=== PATIENT | female | born 1940 | race Caucasian/White ===

== ENCOUNTER 2017-11-23 15:37 | Observation (INO) | payer MEDICARE, SELFPAY ==
[2017-11-23] VITALS (10 sets, daily range): BP systolic 125–182; BP diastolic 65–81; PULSE 59–82; RESP 13–19; TEMP 36.2–36.5; O2SAT 95–99; BMI 26.6
--- NOTE | 2017-11-23 16:06 | DI.RAD.S_ITS ---
PROCEDURE: XR CHEST 1V INDICATIONS: chest pain TECHNIQUE: One view of the chest was acquired. COMPARISON: None. FINDINGS: Surgical changes and devices: None. Lungs and pleura: No pleural effusions or pneumothorax. Lungs are clear. Mediastinum: Mediastinal contours appear normal. Heart size is normal. Bones and chest wall: No suspicious bony lesions. Overlying soft tissues appear unremarkable. IMPRESSION: No acute cardiopulmonary findings. Dictated by: Taryn Ndiaye M.D. on 11/23/2017 at 16:47 Approved by: Taryn Ndiaye M.D. on 11/23/2017 at 16:55
--- NOTE | 2017-11-23 16:24 | ED.CHESTPAIN ---
HPI - Chest Pain General Chief Complaint: Chest Pain Stated Complaint: FEELS LIKE SOMEONE STANDING ON HER CHEST Time Seen by Provider: 11/23/17 16:18 Source: patient and family ( ) Mode of arrival: ambulatory Limitations: no limitations History of Present Illness HPI narrative: this is a 77-year-old female who comes in with complaint of pressure in her anterior chest. Patient states that it started for the 1st time on Friday she has had a couple episodes that resolved. Today it started about 2:00 p.m. and has been pretty much constant. She does feel little short of breath. She denies any sweaty or clamminess. No nausea, no vomiting. She does not have any migration of the pain. She does feel some pressure kind of in her neck and back nothing seems to make it worse. Nothing seems to make it better. The only thing she can think of exacerbating factors that she has had Croatian fries and that happened before when she had Croatian fries prior to inserted had similar symptoms but not every time. Patient denies any past medical history. 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 She does not take any medications regularly. She does not smoke. She has never had a stress test. Her mom had heart attack in her 70s but no other family history. She does not take aspirin daily. The symptoms she was having since Friday have come more progressively in frequency. MD complaint: chest pain Related Data Allergies Allergy/AdvReac Type Severity Reaction Status Date / Time No Known Drug Allergies Allergy Verified 11/23/17 15:42 Review of Systems Review of Systems All systems reviewed & are unremarkable except as noted in HPI and below Constitutional Denies fever(s) Cardiovascular Reports chest pain ( pressure), Reports chest pain at rest, Reports chest pain with activity ( not worsened with activity), Denies diaphoresis, Denies syncope, Denies edema, Denies lightheadedness, Reports radiating jaw, neck or arm pain, Denies palpitations, Reports dyspnea and Denies orthopnea Respiratory Denies chest congestion, Denies cough, Denies hemoptysis and Reports dyspnea Gastrointestinal Gastrointestinal: Denies abdominal pain, Denies change in bowel habits, Denies diarrhea, Denies nausea and Denies vomiting Genitourinary Denies hematuria, Denies flank pain, Denies urinary incontinence and Denies urinary urgency Neurologic Denies syncope Endocrine Denies palpitations Exam Initial Vital Signs Initial Vital Signs: Vital Signs Temperature 97.1 F L 11/23/17 15:42 Pulse Rate 72 11/23/17 15:42 Respiratory Rate 16 11/23/17 15:42 Blood Pressure 159/79 H 11/23/17 15:42 Pulse Oximetry 99 11/23/17 15:42 Const General: cooperative, comfortable, well developed, No acute distress and No diaphoretic Nutritional Appearance: well nourished Orientation: alert, awake, oriented x3 and not confused Neck Neck: normal visual inspection, trachea midline and No JVD Chest Chest: normal inspection of the chest Resp Effort & Inspection: normal respiratory effort, able to speak in complete sentences, no respiratory distress and no use of accessory muscles Auscultation: clear to auscultation bilaterally, no rales, no rhonchi and no wheezes Cardio Rate: regular rate Rhythm: regular rhythm Heart Sounds: no click, no gallops, no murmurs and no rubs Pulses: normal peripheral pulses GI Inspection: non-distended Palpation: soft, no hepatosplenomegaly, No guarding, No pulsatile mass and No tender Auscultation: normal bowel sounds Extrem Right lower extremity: foot Details: no edema and vascular exam Details: dorsalis pedis pulse present Left lower extremity: foot Details: no edema and vascular exam Details: dorsalis pedis pulse present Scores HEART Score Heart Score history: Highly Suspicious Heart Score EKG: Non-Specific repolarization disturbance Heart Score Age: > or = 65 years old Heart Score risk factors: No known risk factors Heart Score troponin: < or = to normal limit Heart Score Total: 5 Course Orders Ordered: ED Orders 11/23/17 16:06 XR chest 1V Stat EKG-12 Lead Stat 11/23/17 16:20 Complete Blood Count AUTO DIFF Stat Comprehensive Metabolic Panel Stat Lipase Stat Troponin & CK Cardiac Panel Stat Sodium Chloride (Normal Saline 0.9%) 1,000 mls @ 150 mls/hr IV CONT GAVIN Last Admin: 11/23/17 16:26 Dose: 150 mls/hr Nitroglycerin (Nitrostat) 0.4 mg SL [id number] PRN PRN Reason: Chest Pain Last Admin: 11/23/17 16:32 Dose: 0.4 mg Admin: 11/23/17 16:27 Dose: 0.4 mg Discontinued Medications Aspirin (Aspirin Chew) 324 mg PO NOW ONE Stop: 11/23/17 16:07 Last Admin: 11/23/17 16:26 Dose: 324 mg Morphine Sulfate (Morphine) 4 mg IV NOW ONE Stop: 11/23/17 16:49 Last Admin: 11/23/17 16:54 Dose: 4 mg Ondansetron HCl (Zofran) 4 mg IV NOW ONE Stop: 11/23/17 16:53 Last Admin: 11/23/17 16:54 Dose: 4 mg Pantoprazole Sodium (Protonix) 40 mg IV NOW ONE Stop: 11/23/17 17:58 Last Admin: 11/23/17 18:11 Dose: 40 mg Reevaluation(s) Reevaluation #1: re-evaluation after nitro patient is Vital Signs - 8 hr 11/23/17 15:42 11/23/17 16:27 11/23/17 16:32 Temperature 97.1 F L Pulse Rate 72 71 82 Respiratory Rate 16 Blood Pressure 159/79 H 131/81 125/70 Blood Pressure [Right Arm] Pulse Oximetry 99 11/23/17 16:47 11/23/17 18:12 Temperature Pulse Rate 77 63 Respiratory Rate 15 16 Blood Pressure Blood Pressure [Right Arm] 129/67 144/68 H Pulse Oximetry 95 98 MDM - Chest Pain Lab Data Attestation: I reviewed the patient's lab results. Result diagrams: 11/23/17 16:20 11/23/17 16:20 Lab Results 11/23/17 11/23/17 Range/Units 16:20 16:20 WBC 7.1 (4.5-11.0) X10^3/uL RBC 4.29 (4.0-5.2) X10^6/uL Hgb 13.0 (12.0-16.0) g/dL Hct 38.6 (36-46) % MCV 90.0 (80-100) fL MCH 30.4 (26-34) PG MCHC 33.8 (30-36) % RDW 14.3 (11.6-14.8) % Plt Count 220 (150-400) X10^3/uL Neut % (Auto) 54.4 (50-75) % Lymph % (Auto) 31.0 (25-40) % Nicholas % (Auto) 10.7 (3-14) % Eos % (Auto) 2.7 (2-4) % Baso % (Auto) 1.2 (0-2) % Neut # (Auto) 3900 (3738-3475) /uL Sodium 143 (137-145) mmol/L Potassium 5.1 (3.4-5.1) mmol/L Chloride 107 (98-107) mmol/L Carbon Dioxide 30 (22-32) mmol/L BUN 25 H (7-17) mg/dL Creatinine 0.90 (0.52-1.04) mg/dL Estimated GFR > 60.0 (>60) mL/min BUN/Creatinine Ratio 27.8 H (6-22) Glucose 128 H (80-110) mg/dL Calcium 9.6 (8.4-10.2) mg/dL Total Bilirubin 0.3 (0.2-1.3) mg/dL AST 25 (14-36) IU/L ALT 23 (9-52) IU/L Alkaline Phosphatase 59 (38-126) U/L Total Creatine Kinase 65 (30-135) U/L Troponin I < 0.012 (0.01-0.034) ng/mL Total Protein 7.3 (6.3-8.2) g/dL Albumin 4.0 (3.5-5.0) g/dL Globulin 3.3 (1.7-4.1) g/dL Albumin/Globulin Ratio 1.2 (1.0-2.8) Lipase 206 (23-300) U/L Imaging Data Chest x-ray: Radiologist's impression: Patient: Alisia Helton [facility]#: [id number] : 1940cct:[id number] Age/Sex: 77 / FDate of Service: 11/23/17 Loc: ED Accession Number: [id number] Procedure: XR chest 1V Ordering Provider: Ashley Steven D.O. PROCEDURE: XR CHEST 1V INDICATIONS: chest pain TECHNIQUE: One view of the chest was acquired. COMPARISON: None. FINDINGS: Surgical changes and devices: None. Lungs and pleura: No pleural effusions or pneumothorax. Lungs are clear. Mediastinum: Mediastinal contours appear normal. Heart size is normal. Bones and chest wall: No suspicious bony lesions. Overlying soft tissues appear unremarkable. IMPRESSION: No acute cardiopulmonary findings. Dictated by: Taryn Ndiaye M.D. on 11/23/2017 at 16:47 Approved by: Taryn Ndiaye M.D. on 11/23/2017 at 16:55 ECG Data Attestation: I personally reviewed and interpreted this ECG as follows: Prior ECG tracings: available for review Interpretation: Sinus rhythm with short P are, rate of 74, P are 113, QRS of 101 and QTC of 410. The patient has Q-wave in lead [address] elevation are is appreciated. Patient has prior EKG from March of 2016 at that appears similar with no other new EKG changes. MDM Narrative Medical decision making narrative: patient comes in with chest pain her symptoms are somewhat concerning for cardiac nature although no EKG or troponin changes. Discussed with Dr. Rueda who saw her here in the department feel she would benefit from chest pain observation. He is available to do stress testing tomorrow and patient is put in for observation. She had nitro and morphine without any resolution. He did try some Protonix she thought her symptoms might have started after having some Croatian fries. Discharge Plan Departure Patient Disposition: Admitted as Observation Clinical Impression: Chest pain
[2017-11-23] MEDS: ASPIRIN 81 MG TAB 324 MG PO (16:26)
[2017-11-23] MEDS: SODIUM CHLORIDE 0.9% 1,000 ML 150 ML IV (16:26)
[2017-11-23] MEDS: NITROGLYCERIN 0.4 MG SL TAB SL ×2 (16:27→16:32)
--- NOTE | 2017-11-23 16:28 | ED_ITS ---
HPI - Chest Pain General Chief Complaint: Chest Pain Stated Complaint: FEELS LIKE SOMEONE STANDING ON HER CHEST Time Seen by Provider: 11/23/17 16:18 Source: patient and family ( ) Mode of arrival: ambulatory Limitations: no limitations History of Present Illness HPI narrative: this is a 77-year-old female who comes in with complaint of pressure in her anterior chest. Patient states that it started for the 1st time on Friday she has had a couple episodes that resolved. Today it started about 2:00 p.m. and has been pretty much constant. She does feel little short of breath. She denies any sweaty or clamminess. No nausea, no vomiting. She does not have any migration of the pain. She does feel some pressure kind of in her neck and back nothing seems to make it worse. Nothing seems to make it better. The only thing she can think of exacerbating factors that she has had British fries and that happened before when she had British fries prior to inserted had similar symptoms but not every time. Patient denies any past medical history. 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 She does not take any medications regularly. She does not smoke. She has never had a stress test. Her mom had heart attack in her 70s but no other family history. She does not take aspirin daily. The symptoms she was having since Friday have come more progressively in frequency. MD complaint: chest pain Related Data Allergies Allergy/AdvReac Type Severity Reaction Status Date / Time No Known Drug Allergies Allergy Verified 11/23/17 15:42 Review of Systems Review of Systems All systems reviewed & are unremarkable except as noted in HPI and below Constitutional Denies fever(s) Cardiovascular Reports chest pain ( pressure), Reports chest pain at rest, Reports chest pain with activity ( not worsened with activity), Denies diaphoresis, Denies syncope , Denies edema, Denies lightheadedness, Reports radiating jaw, neck or arm pain , Denies palpitations, Reports dyspnea and Denies orthopnea Respiratory Denies chest congestion, Denies cough, Denies hemoptysis and Reports dyspnea Gastrointestinal Gastrointestinal: Denies abdominal pain, Denies change in bowel habits, Denies diarrhea, Denies nausea and Denies vomiting Genitourinary Denies hematuria, Denies flank pain, Denies urinary incontinence and Denies urinary urgency Neurologic Denies syncope Endocrine Denies palpitations Exam Initial Vital Signs Initial Vital Signs: Vital Signs Temperature 97.1 F L 11/23/17 15:42 Pulse Rate 72 11/23/17 15:42 Respiratory Rate 16 11/23/17 15:42 Blood Pressure 159/79 H 11/23/17 15:42 Pulse Oximetry 99 11/23/17 15:42 Const General: cooperative, comfortable, well developed, No acute distress and No diaphoretic Nutritional Appearance: well nourished Orientation: alert, awake, oriented x3 and not confused Neck Neck: normal visual inspection, trachea midline and No JVD Chest Chest: normal inspection of the chest Resp Effort & Inspection: normal respiratory effort, able to speak in complete sentences, no respiratory distress and no use of accessory muscles Auscultation: clear to auscultation bilaterally, no rales, no rhonchi and no wheezes Cardio Rate: regular rate Rhythm: regular rhythm Heart Sounds: no click, no gallops, no murmurs and no rubs Pulses: normal peripheral pulses GI Inspection: non-distended Palpation: soft, no hepatosplenomegaly, No guarding, No pulsatile mass and No tender Auscultation: normal bowel sounds Extrem Right lower extremity: foot Details: no edema and vascular exam Details: dorsalis pedis pulse present Left lower extremity: foot Details: no edema and vascular exam Details: dorsalis pedis pulse present Scores HEART Score Heart Score history: Highly Suspicious Heart Score EKG: Non-Specific repolarization disturbance Heart Score Age: > or = 65 years old Heart Score risk factors: No known risk factors Heart Score troponin: < or = to normal limit Heart Score Total: 5 Course Orders Ordered: ED Orders 11/23/17 16:06 XR chest 1V Stat EKG-12 Lead Stat 11/23/17 16:20 Complete Blood Count AUTO DIFF Stat Comprehensive Metabolic Panel Stat Lipase Stat Troponin & CK Cardiac Panel Stat Sodium Chloride (Normal Saline 0.9%) 1,000 mls @ 150 mls/hr IV CONT GAVIN Last Admin: 11/23/17 16:26 Dose: 150 mls/hr Nitroglycerin (Nitrostat) 0.4 mg SL [id number] PRN PRN Reason: Chest Pain Last Admin: 11/23/17 16:32 Dose: 0.4 mg Admin: 11/23/17 16:27 Dose: 0.4 mg Discontinued Medications Aspirin (Aspirin Chew) 324 mg PO NOW ONE Stop: 11/23/17 16:07 Last Admin: 11/23/17 16:26 Dose: 324 mg Morphine Sulfate (Morphine) 4 mg IV NOW ONE Stop: 11/23/17 16:49 Last Admin: 11/23/17 16:54 Dose: 4 mg Ondansetron HCl (Zofran) 4 mg IV NOW ONE Stop: 11/23/17 16:53 Last Admin: 11/23/17 16:54 Dose: 4 mg Pantoprazole Sodium (Protonix) 40 mg IV NOW ONE Stop: 11/23/17 17:58 Last Admin: 11/23/17 18:11 Dose: 40 mg Reevaluation(s) Reevaluation #1: re-evaluation after nitro patient is Vital Signs - 8 hr 11/23/17 15:42 11/23/17 16:27 11/23/17 16:32 Temperature 97.1 F L Pulse Rate 72 71 82 Respiratory Rate 16 Blood Pressure 159/79 H 131/81 125/70 Blood Pressure [Right Arm] Pulse Oximetry 99 11/23/17 16:47 11/23/17 18:12 Temperature Pulse Rate 77 63 Respiratory Rate 15 16 Blood Pressure Blood Pressure [Right Arm] 129/67 144/68 H Pulse Oximetry 95 98 MDM - Chest Pain Lab Data Attestation: I reviewed the patient's lab results. Result diagrams: 11/23/17 16:20 11/23/17 16:20 Lab Results 11/23/17 11/23/17 Range/Units 16:20 16:20 WBC 7.1 (4.5-11.0) X10^3/uL RBC 4.29 (4.0-5.2) X10^6/uL Hgb 13.0 (12.0-16.0) g/dL Hct 38.6 (36-46) % MCV 90.0 (80-100) fL MCH 30.4 (26-34) PG MCHC 33.8 (30-36) % RDW 14.3 (11.6-14.8) % Plt Count 220 (150-400) X10^3/uL Neut % (Auto) 54.4 (50-75) % Lymph % (Auto) 31.0 (25-40) % [place] % (Auto) 10.7 (3-14) % Eos % (Auto) 2.7 (2-4) % Baso % (Auto) 1.2 (0-2) % Neut # (Auto) 3900 (3099-5517) /uL Sodium 143 (137-145) mmol/L Potassium 5.1 (3.4-5.1) mmol/L Chloride 107 (98-107) mmol/L Carbon Dioxide 30 (22-32) mmol/L BUN 25 H (7-17) mg/dL Creatinine 0.90 (0.52-1.04) mg/dL Estimated GFR > 60.0 (>60) mL/min BUN/Creatinine Ratio 27.8 H (6-22) Glucose 128 H (80-110) mg/dL Calcium 9.6 (8.4-10.2) mg/dL Total Bilirubin 0.3 (0.2-1.3) mg/dL AST 25 (14-36) IU/L ALT 23 (9-52) IU/L Alkaline Phosphatase 59 (38-126) U/L Total Creatine Kinase 65 (30-135) U/L Troponin I < 0.012 (0.01-0.034) ng/mL Total Protein 7.3 (6.3-8.2) g/dL Albumin 4.0 (3.5-5.0) g/dL Globulin 3.3 (1.7-4.1) g/dL Albumin/Globulin Ratio 1.2 (1.0-2.8) Lipase 206 (23-300) U/L Imaging Data Chest x-ray: Radiologist's impression: Patient: Alisia Helton [facility]#: [id number] : 1940cct:[id number] Age/Sex: 77 / FDate of Service: 11/23/17 Loc: ED Accession Number: [id number] Procedure: XR chest 1V Ordering Provider: Ashley Steven D.O. PROCEDURE: XR CHEST 1V INDICATIONS: chest pain TECHNIQUE: One view of the chest was acquired. COMPARISON: None. FINDINGS: Surgical changes and devices: None. Lungs and pleura: No pleural effusions or pneumothorax. Lungs are clear. Mediastinum: Mediastinal contours appear normal. Heart size is normal. Bones and chest wall: No suspicious bony lesions. Overlying soft tissues appear unremarkable. IMPRESSION: No acute cardiopulmonary findings. Dictated by: Taryn Ndiaye M.D. on 11/23/2017 at 16:47 Approved by: Taryn Ndiaye M.D. on 11/23/2017 at 16:55 ECG Data Attestation: I personally reviewed and interpreted this ECG as follows: Prior ECG tracings: available for review Interpretation: Sinus rhythm with short P are, rate of 74, P are 113, QRS of 101 and QTC of 410. The patient has Q-wave in lead [address] elevation are is appreciated. Patient has prior EKG from March of 2016 at that appears similar with no other new EKG changes. MDM Narrative Medical decision making narrative: patient comes in with chest pain her symptoms are somewhat concerning for cardiac nature although no EKG or troponin changes. Discussed with Dr. Rueda who saw her here in the department feel she would benefit from chest pain observation. He is available to do stress testing tomorrow and patient is put in for observation. She had nitro and morphine without any resolution. He did try some Protonix she thought her symptoms might have started after having some British fries. Discharge Plan Departure Patient Disposition: Admitted as Observation Clinical Impression: Chest pain
[2017-11-23 16:29] LABS: Add Manual Diff / Slide Review NO; Basophils Percent Auto 1.2 % (0-2); Eosinophils Percent Auto 2.7 % (2-4); Hematocrit 38.6 % (36-46); Mean Corpuscular HGB Conc 33.8 % (30-36); Mean Corpuscular Hemoglobin 30.4 PG (26-34); Monocytes Percent Auto 10.7 % (3-14); Neutrophils Absolute Auto 3900 /uL (3000-5900); Neutrophils Percent Auto 54.4 % (50-75); Platelet Count 220 X10^3/uL (150-400); Red Blood Cell Count 4.29 X10^6/uL (4.0-5.2); Red Cell Distribution Width 14.3 % (11.6-14.8); White Blood Cell Count 7.1 X10^3/uL (4.5-11.0)
[2017-11-23 16:41] LABS: Alanine Aminotransferase 23 IU/L (9-52); Albumin Globulin Ratio 1.2 (1.0-2.8); Alkaline Phosphatase 59 U/L (38-126); Aspartate Aminotransferase 25 IU/L (14-36); BUN Creatinine Ratio 27.8 (6-22); Bilirubin Total 0.3 mg/dL (0.2-1.3); Blood Urea Nitrogen 25 mg/dL (7-17); Calcium 9.6 mg/dL (8.4-10.2); Carbon Dioxide 30 mmol/L (22-32); Chloride 107 mmol/L (98-107); Creatine Kinase 65 U/L (30-135); Estimated Glomerular Filt Rate > 60.0 mL/min (>60); Globulin 3.3 g/dL (1.7-4.1); Glucose 128 mg/dL (80-110); HEMOLYSIS < 15 (0-50); Lipase 206 U/L (23-300); Potassium 5.1 mmol/L (3.4-5.1); Sodium 143 mmol/L (137-145); Total Protein 7.3 g/dL (6.3-8.2)
[2017-11-23] MEDS: ONDANSETRON 4 MG/2 ML INJ IV ×2 (16:54→22:33)
[2017-11-23] MEDS: MORPHINE 4 MG/ML INJ IV (16:54)
[2017-11-23 16:57] LABS: Troponin I < 0.012 ng/mL (0.01-0.034)
[2017-11-23] MEDS: PANTOPRAZOLE 40 MG VIAL IV (18:11)
--- NOTE | 2017-11-23 18:43 | PM.HP.1 ---
History of Present Illness Date Patient Seen: 11/23/17 Time Patient Seen: 18:43 Chief complaint: FEELS LIKE SOMEONE STANDING ON HER CHEST Narrative: Patient is a 77-year-old female presents to emergency department due to persistent chest pressure for about 1 and 0.5 hr. She has no prior history of coronary disease and denies hypertension or hyperlipidemia cardiac risk factors. She describes the discomfort as a pressure sensation in her left chest. It does not radiate anywhere. It is not associated with nausea or vomiting. She actually has had intermittent chest discomfort for the past 2 weeks. She thinks the pain lasts for up to an hour and goes away. She has tried to ignore it. Over the past 2 days she has had more frequent and persistent episodes of the discomfort. She has not found anything that makes it better or worse including rest or exertion. She denies any pleuritic component. She is a nonsmoker. Family history notable for mother who of [place] at age 74 and father who at age 80 of cardiac issues but also had severe lung problems due to asbestosis. Patient herself has been really healthy without chronic medical conditions. Patient History Family & Social History Family History: Reviewed 11/23/17 by Jb Rueda MD Meds Allergies Allergy/AdvReac Type Severity Reaction Status Date / Time No Known Drug Allergies Allergy Verified 11/23/17 15:42 Review of Systems Review of Systems All systems reviewed & are unremarkable except as noted in HPI and below Exam Vital Signs (past 8 hours): - 11/23/17 15:42 11/23/17 16:27 11/23/17 16:32 Temperature 97.1 F L Pulse Rate 72 71 82 Respiratory Rate 16 Blood Pressure 159/79 H 131/81 125/70 Blood Pressure [Right Arm] Pulse Oximetry 99 11/23/17 16:47 11/23/17 18:12 Temperature Pulse Rate 77 63 Respiratory Rate 15 16 Blood Pressure Blood Pressure [Right Arm] 129/67 144/68 H Pulse Oximetry 95 98 Oxygen Delivery Method Room Air Narrative Exam Narrative: GENERAL: This is an alert well-nourished, well-developed patient, in no apparent distress. HEAD: Atraumatic. Normocephalic. EYES: Pupils equal, round and reactive. Extraocular motions intact. No scleral icterus. No injection or drainage. OROPHARYNX: moist mucosa NECK: Trachea midline. No JVD or lymphadenopathy. CARDIOVASCULAR: Normal S1 and S2, regular rate and rhythm without murmurs, gallops, or rubs. RESPIRATORY: Clear to auscultation bilaterally. GASTROINTESTINAL: Abdomen nondistended, soft, non-tender. No hepato-splenomegaly, or palpable masses. EXTREMITIES: No edema. NEUROLOGICAL: Alert, well oriented, speech is intact, normal bilateral upper and lower extremity strength SKIN: warm, dry, no rash Objective Imaging Chest x-ray: Radiologist's impression: Normal chest x-ray. ECG: My impression: Normal sinus rhythm, no ST or T-wave abnormalities, normal MN, QRS and QT intervals. No change from prior EKG. Labs Result Diagrams: 11/23/17 16:20 11/23/17 16:20 Labs: Laboratory Results - last 24 hr 11/23/17 11/23/17 16:20 16:20 WBC 7.1 RBC 4.29 Hgb 13.0 Hct 38.6 MCV 90.0 MCH 30.4 MCHC 33.8 RDW 14.3 Plt Count 220 Neut % (Auto) 54.4 Lymph % (Auto) 31.0 [place] % (Auto) 10.7 Eos % (Auto) 2.7 Baso % (Auto) 1.2 Neut # (Auto) 3900 Sodium 143 Potassium 5.1 Chloride 107 Carbon Dioxide 30 BUN 25 H Creatinine 0.90 Estimated GFR > 60.0 BUN/Creatinine Ratio 27.8 H Glucose 128 H Calcium 9.6 Total Bilirubin 0.3 AST 25 ALT 23 Alkaline Phosphatase 59 Total Creatine Kinase 65 Troponin I < 0.012 Total Protein 7.3 Albumin 4.0 Globulin 3.3 Albumin/Globulin Ratio 1.2 Lipase 206 Assessment & Plan Plan: Assessment/Plan Narrative: 1. Chest pain: Patient presents with 2 weeks of intermittent chest pain and then more persistent left-sided chest pressure today. Initial EKG and troponin are normal. Her history is sufficiently concerning that she requires hospital observation for additional workup and rule out MO. Plan: Cardiac telemetry, repeat troponin at 8:00 a.m., stress test in a.m. if rules out. She received aspirin and nitroglycerin in the emergency department and still having slight discomfort. She threw up immediately after received morphine. Ordered topical nitroglycerin 0.5 g q.6 hours.
--- NOTE | 2017-11-23 18:47 | P.HP_ITS ---
History of Present Illness Date Patient Seen: 11/23/17 Time Patient Seen: 18:43 Chief complaint: FEELS LIKE SOMEONE STANDING ON HER CHEST Narrative: Patient is a 77-year-old female presents to emergency department due to persistent chest pressure for about 1 and 0.5 hr. She has no prior history of coronary disease and denies hypertension or hyperlipidemia cardiac risk factors. She describes the discomfort as a pressure sensation in her left chest. It does not radiate anywhere. It is not associated with nausea or vomiting. She actually has had intermittent chest discomfort for the past 2 weeks. She thinks the pain lasts for up to an hour and goes away. She has tried to ignore it. Over the past 2 days she has had more frequent and persistent episodes of the discomfort. She has not found anything that makes it better or worse including rest or exertion. She denies any pleuritic component. She is a nonsmoker. Family history notable for mother who of MT at age 74 and father who at age 80 of cardiac issues but also had severe lung problems due to asbestosis. Patient herself has been really healthy without chronic medical conditions. Patient History Family & Social History Family History: Reviewed 11/23/17 by Jb Rueda MD Meds Allergies Allergy/AdvReac Type Severity Reaction Status Date / Time No Known Drug Allergies Allergy Verified 11/23/17 15:42 Review of Systems Review of Systems All systems reviewed & are unremarkable except as noted in HPI and below Exam Vital Signs (past 8 hours): - 11/23/17 15:42 11/23/17 16:27 11/23/17 16:32 Temperature 97.1 F L Pulse Rate 72 71 82 Respiratory Rate 16 Blood Pressure 159/79 H 131/81 125/70 Blood Pressure [Right Arm] Pulse Oximetry 99 11/23/17 16:47 11/23/17 18:12 Temperature Pulse Rate 77 63 Respiratory Rate 15 16 Blood Pressure Blood Pressure [Right Arm] 129/67 144/68 H Pulse Oximetry 95 98 Oxygen Delivery Method Room Air Narrative Exam Narrative: GENERAL: This is an alert well-nourished, well-developed patient , in no apparent distress. HEAD: Atraumatic. Normocephalic. EYES: Pupils equal, round and reactive. Extraocular motions intact. No scleral icterus. No injection or drainage. OROPHARYNX: moist mucosa NECK: Trachea midline. No JVD or lymphadenopathy. CARDIOVASCULAR: Normal S1 and S2, regular rate and rhythm without murmurs, gallops, or rubs. RESPIRATORY: Clear to auscultation bilaterally. GASTROINTESTINAL: Abdomen nondistended, soft, non-tender. No hepato- splenomegaly, or palpable masses. EXTREMITIES: No edema. NEUROLOGICAL: Alert, well oriented, speech is intact, normal bilateral upper and lower extremity strength SKIN: warm, dry, no rash Objective Imaging Chest x-ray: Radiologist's impression: Normal chest x-ray. ECG: My impression: Normal sinus rhythm, no ST or T-wave abnormalities, normal WI, QRS and QT intervals. No change from prior EKG. Labs Result Diagrams: 11/23/17 16:20 11/23/17 16:20 Labs: Laboratory Results - last 24 hr 11/23/17 11/23/17 16:20 16:20 WBC 7.1 RBC 4.29 Hgb 13.0 Hct 38.6 MCV 90.0 MCH 30.4 MCHC 33.8 RDW 14.3 Plt Count 220 Neut % (Auto) 54.4 Lymph % (Auto) 31.0 Sublette % (Auto) 10.7 Eos % (Auto) 2.7 Baso % (Auto) 1.2 Neut # (Auto) 3900 Sodium 143 Potassium 5.1 Chloride 107 Carbon Dioxide 30 BUN 25 H Creatinine 0.90 Estimated GFR > 60.0 BUN/Creatinine Ratio 27.8 H Glucose 128 H Calcium 9.6 Total Bilirubin 0.3 AST 25 ALT 23 Alkaline Phosphatase 59 Total Creatine Kinase 65 Troponin I < 0.012 Total Protein 7.3 Albumin 4.0 Globulin 3.3 Albumin/Globulin Ratio 1.2 Lipase 206 Assessment & Plan Plan: Assessment/Plan Narrative: 1. Chest pain: Patient presents with 2 weeks of intermittent chest pain and then more persistent left-sided chest pressure today. Initial EKG and troponin are normal. Her history is sufficiently concerning that she requires hospital observation for additional workup and rule out MT. Plan: Cardiac telemetry, repeat troponin at 8:00 a.m., stress test in a.m. if rules out. She received aspirin and nitroglycerin in the emergency department and still having slight discomfort. She threw up immediately after received morphine. Ordered topical nitroglycerin 0.5 g q.6 hours.
[2017-11-23] MEDS: LORazepam 0.5 MG TABLET PO (20:16)
[2017-11-23] MEDS: LOPERAMIDE 2 MG CAPSULE 4 MG PO (22:32)
[2017-11-23] MEDS: SODIUM CHLORIDE 0.9% 1,000 ML 100 ML IV (22:32)
[2017-11-24 00:06] LABS: Troponin I < 0.012 ng/mL (0.01-0.034)
--- NOTE | 2017-11-24 02:29 | PC.NURSE ---
Addendum entered by Taylor Moore R.N. 11/24/17 05:13: AIR CONDITIONING MECHANIC assisted pt to bathroom. Unable to get stool/ urine samples due to cross contamination. Aid noted pt had several red drops of blood in stool sample. Original Note: Sales Contractor Note Pt was admitted on evening shift. Evening shift nurse notified this copywriter, pt has orders for a urine and stool samples. Met with pt at start of shift. Pt is AOx3. Denies chest pain/ pressure. No N/V. No headache. Per pt and evening shift nurse, pt had episode of emesis in ED and received zofran. Pt is currently resting comfortably in bed. Reminded pt to use call light immediately if chest pain. Pt is on tele. NSR at 0000. RA. Independent with SBA for mobility. Call light in reach
[2017-11-24 05:00] VITALS: BP 161/63; PULSE 69; RESP 18; TEMP 36.7; O2SAT 97
[2017-11-24] MEDS: SODIUM CHLORIDE 0.9% 1,000 ML 100 ML IV (06:17)
--- NOTE | 2017-11-24 08:16 | PC.NURSE ---
Day shift: UA and stool sample sent to lab. Stool this AM loose, watery, small amount, with senthil blood present. Pt became emotional and tearful this AM. Lorazepam offered but refused.
[2017-11-24 08:18] VITALS: O2SAT 97
[2017-11-24 08:35] VITALS: BP 136/71; PULSE 68; RESP 17; TEMP 36.9; O2SAT 94
[2017-11-24 08:53] LABS: Bacteria Urine None Seen; RBC Urine None Seen (0-5/HPF); WBC Urine None Seen (0-5/HPF)
[2017-11-24 09:04] LABS: Culture Indicated Urine Cult Not Indicated; Urine Comments Microscopic Normal
--- NOTE | 2017-11-24 09:19 | CM.DANOTE ---
Discharge Planning/Care Management DCP: assessment: case received. Met with pt this morning and introduced self and role. PT is a 77 year old female who admitted to care of hospitalist team last evening. Payer: Medicare and [employer] PCP: Dr. Ledezma/ [facility]. Pt confirms that Dr. Rueda is doing some tests and she expects to see him later today with results. P: likely home is stable for outpt followup....to be determined. CM Discharge Assessment Start: 11/24/17 09:17 Freq: Status: Active Protocol: Document 11/24/17 09:18 ITV (Rec: 11/24/17 09:19 ITV [id number]) Discharge Planning Assessment Advance Directives on File No History Provided By Patient Medical Record Prior Living Arrangements House Household Members spouse Whiteboard Updated in Patient Room with Yes name and ext. # of Casing Puller Review Status In Process Next Review Type Continued Stay Review
[2017-11-24] MEDS: ASPIRIN EC 81 MG TABLET PO (09:30)
[2017-11-24 10:13] LABS: Adenovirus F 40/41 Not Detected (Not Detect); Astrovirus Not Detected (Not Detect); Campylobacter Not Detected (Not Detect); Clostridium difficile toxin AB Not Detected (Not Detect); Cryptosporidium Not Detected (Not Detect); Cyclospora cayetanensis Not Detected (Not Detect); Entamoeba histolytica Not Detected (Not Detect); Enteroaggregative E.coli Not Detected (Not Detect); Enteropathogenic E.coli Not Detected (Not Detect); Enterotoxigenic E.coli It/st Not Detected (Not Detect); Giardia lamblia Not Detected (Not Detect); Norovirus GI/GII Not Detected (Not Detect); Plesiomonsa shigelloides Not Detected (Not Detect); Rotavirus A Not Detected (Not Detect); Salmonella Not Detected (Not Detect); Shiga-like toxin-prod E.coli Not Detected (Not Detect); Shigella/Enteroinvasive E.coli Not Detected (Not Detect); Vibrio Not Detected (Not Detect); Vibrio cholerae Not Detected (Not Detect); Yersinia enterocolitica Not Detected (Not Detect)
--- NOTE | 2017-11-24 10:44 | PC.NURSE ---
Day shift: Pt off unit at 1045 for first part of stress test. SL at this time. Encouraged to increase fluid intake. Spouse went w/ Pt for the test and support.
--- NOTE | 2017-11-24 11:51 | P.DS_ITS ---
History of Present Illness Chief complaint: FEELS LIKE SOMEONE STANDING ON HER CHEST Narrative: Patient is a 77-year-old female presents to emergency department due to persistent chest pressure for about 1 and 0.5 hr. She has no prior history of coronary disease and denies hypertension or hyperlipidemia cardiac risk factors. She describes the discomfort as a pressure sensation in her left chest. It does not radiate anywhere. It is not associated with nausea or vomiting. She actually has had intermittent chest discomfort for the past 2 weeks. She thinks the pain lasts for up to an hour and goes away. She has tried to ignore it. Over the past 2 days she has had more frequent and persistent episodes of the discomfort. She has not found anything that makes it better or worse including rest or exertion. She denies any pleuritic component. She is a nonsmoker. Family history notable for mother who of DC at age 74 and father who at age 80 of cardiac issues but also had severe lung problems due to asbestosis. Patient herself has been really healthy without chronic medical conditions. Discharge Providers Date of admission: 11/23/17 18:35 Primary care physician: Daniel Christina MD Discharge provider: Jb Rueda MD Summary Discharge Diagnosis: 1. Chest pain syndrome 2. Acute gastroenteritis Hospital Course: Patient admitted for chest pain, ruled out for DC with serial cardiac enzymes. She had no EKG or telemetry changes. We initially planned for myocardial perfusion stress test but she is extremely claustrophobic and could not tolerate being in the scanner for the rest portion of that was done 1st. So she did receive dose of isotope but no scan. We then decided to do a standard treadmill stress test which was essentially normal or low risk. She exercised for 5 min on Yohan protocol, had no chest pain, had no significant ST changes, no arrhythmia and normal recovery. Therefore cardiac source of pain is unlikely. She is advised to seek medical attention if she has recurrent chest discomfort. Shortly after admission she developed watery frequent diarrhea and vomiting. Subsequently she had some rectal bleeding associated with the diarrhea. Her stool PCR was negative. Her symptoms seemed to be much better over the course of this morning. Status at Discharge Functional status at discharge: independent ambulation Overall status at discharge: patient is back to baseline Exam Vital Signs (past 8 hours): - 11/24/17 05:00 11/24/17 08:18 11/24/17 08:35 Temperature 98.1 F 98.5 F Pulse Rate 69 68 Respiratory Rate 18 17 Blood Pressure 161/63 H 136/71 Pulse Oximetry 97 97 94 Oxygen Delivery Method Room Air Oxygen Flow Rate 0 Objective Labs Result Diagrams: 11/23/17 16:20 11/23/17 16:20 Labs: Laboratory Results - last 24 hr 11/23/17 11/23/17 11/23/17 16:20 16:20 23:35 WBC 7.1 RBC 4.29 Hgb 13.0 Hct 38.6 MCV 90.0 MCH 30.4 MCHC 33.8 RDW 14.3 Plt Count 220 Neut % (Auto) 54.4 Lymph % (Auto) 31.0 Bland % (Auto) 10.7 Eos % (Auto) 2.7 Baso % (Auto) 1.2 Neut # (Auto) 3900 Sodium 143 Potassium 5.1 Chloride 107 Carbon Dioxide 30 BUN 25 H Creatinine 0.90 Estimated GFR > 60.0 BUN/Creatinine Ratio 27.8 H Glucose 128 H Calcium 9.6 Total Bilirubin 0.3 AST 25 ALT 23 Alkaline Phosphatase 59 Total Creatine Kinase 65 Troponin I < 0.012 < 0.012 Total Protein 7.3 Albumin 4.0 Globulin 3.3 Albumin/Globulin Ratio 1.2 Lipase 206 Urine RBC Urine WBC Urine Bacteria Ur Culture Indicated? Micro UA Comment Stool Aeromonas Cult Stl C. cayetanensis PCR Stool Rotavirus (PCR) Stool Adenovirus (PCR) Stool Astrovirus (PCR) Stool Cryptosporidium PCR Stl E.coli Shiga Tox PCR St Sh/Enteroin Ecoli PCR Stool E coli O157 PCR Stl Enterotoxigenic E PCR Stool EPEC (PCR) Stl E. histolytica PCR Stool Giardia Lamblia PCR Stl P. shigelloides PCR St Y.enterocolitica PCR Stool Vibrio (PCR) Stl Vibrio cholerae PCR Stl Enteroaggr Ecoli PCR Stl Norovirus GI/GII PCR Campylobacter (PCR) C. difficile Tox (PCR) Salmonella (PCR) 11/24/17 11/24/17 07:57 07:57 WBC RBC Hgb Hct MCV MCH MCHC RDW Plt Count Neut % (Auto) Lymph % (Auto) Bland % (Auto) Eos % (Auto) Baso % (Auto) Neut # (Auto) Sodium Potassium Chloride Carbon Dioxide BUN Creatinine Estimated GFR BUN/Creatinine Ratio Glucose Calcium Total Bilirubin AST ALT Alkaline Phosphatase Total Creatine Kinase Troponin I Total Protein Albumin Globulin Albumin/Globulin Ratio Lipase Urine RBC None seen Urine WBC None seen Urine Bacteria None seen Ur Culture Indicated? Cult not indicated Micro UA Comment Microscopic normal Stool Aeromonas Cult Awaiting culture res Stl C. cayetanensis PCR Not detected Stool Rotavirus (PCR) Not detected Stool Adenovirus (PCR) Not detected Stool Astrovirus (PCR) Not detected Stool Cryptosporidium PCR Not detected Stl E.coli Shiga Tox PCR Not detected St Sh/Enteroin Ecoli PCR Not detected Stool E coli O157 PCR Not Reportable Stl Enterotoxigenic E PCR Not detected Stool EPEC (PCR) Not detected Stl E. histolytica PCR Not detected Stool Giardia Lamblia PCR Not detected Stl P. shigelloides PCR Not detected St Y.enterocolitica PCR Not detected Stool Vibrio (PCR) Not detected Stl Vibrio cholerae PCR Not detected Stl Enteroaggr Ecoli PCR Not detected Stl Norovirus GI/GII PCR Not detected Campylobacter (PCR) Not detected C. difficile Tox (PCR) Not detected Salmonella (PCR) Not detected Discharge Plan Discharge Plan Patient Disposition: Home Discharge Med Rec/Prescriptions Prescriptions: No Action No Known Home Medications RF: 0 Follow up/Referrals: Daniel Christina MD [Primary Care Provider] - 1 Week Provider Discharge Instructions Diet: Diet as Tolerated Discharge Data Primary Care Provider: Daniel Christina Attending Provider: Jb Rueda Admit Date/Time: 11/23/17 18:35 Quality VTE Deep Vein Thrombosis/Pulmonary Embolism Present on Admission: No
--- NOTE | 2017-11-24 12:28 | PC.NURSE ---
Day shift: Left unit at 1230 w/ spouse to private car. Has all personal belongings. Ppaerwork signed and all questions answered. Pt had no new meds orders. No new scripts.
== END 2017-11-24 12:29 | disposition home or self-care (01) ==
LOC: ED 18:31 → AC 18:36
PROVIDERS: Admitting Provider Internal Medicine; Emergency Provider Emergency Medicine; PCP Internal Medicine; Visit Provider Internal Medicine
DX: R07.9 Chest pain, unspecified (principal); K52.9 Noninfective gastroenteritis and colitis, unspecified
CPT/HCPCS: 36415; 36591; 71045; 80053; 81015; 82550; 82553; 83690; 84484; 85025; 87507; 93005; 93016; 93017; 93018; 96361; 96374; 96375; 99283; 99284; G0378; C9113; J2270; J2405

== ENCOUNTER 2019-09-30 16:05 | Inpatient (IN) | payer MEDICARE, SELFPAY ==
[2017-11-23 18:54] VITALS: BMI 26.6
[2019-09-30] VITALS (26 sets, daily range): BP systolic 125–196; BP diastolic 62–92; PULSE 62–104; RESP 8–24; TEMP 35.8–36.6; O2SAT 91–100; BMI 24.5
--- NOTE | 2019-09-30 16:15 | DI.RAD.S_ITS ---
PROCEDURE: XR ANKLE LT 2V INDICATIONS: Right ankle fracture. TECHNIQUE: 2 views of the left ankle were acquired and also included was much of the tibia and fibula on the left more superiorly. COMPARISON: [facility], CR, XR ANKLE RT 2V, 09/30/2019, 16:07. FINDINGS: Bones: No fractures or dislocations. Ankle mortise is normally aligned. No suspicious bony lesions. Soft tissues: No tibiotalar joint effusion. Achilles tendon appears normal. IMPRESSION: The right ankle is fractured. This study is that of the left ankle and much of the tibia and fibula more superiorly from the ankle area. No acute trauma on the left is found. Dictated by: Meng Marion M.D. on 09/30/2019 at 17:34 Approved by: Meng Marion M.D. on 09/30/2019 at 17:36
--- NOTE | 2019-09-30 16:15 | DI.RAD.S_ITS ---
PROCEDURE: XR TIBIA FUBULA RT 2V INDICATIONS: ran over by bale accumulator TECHNIQUE: 2 views of the tibia and fibula were acquired. COMPARISON: None. FINDINGS: Bones: Overriding oblique fractures of the distal tibial and fibular diaphysis, with lateral displacement of the distal fracture fragments . Tibiotalar joint degeneration noted. Soft tissues: No suspicious soft tissue calcifications or masses. IMPRESSION: Overriding distal tibial and fibular diaphyseal fractures . Dictated by: David Brewer M.D. on 09/30/2019 at 17:17 Approved by: David Brewer M.D. on 09/30/2019 at 17:18
--- NOTE | 2019-09-30 16:30 | DI.RAD.S_ITS ---
PROCEDURE: XR TIBIA FIBULA RT 2V INDICATIONS: ran over by bale accumulator TECHNIQUE: 2 views of the tibia and fibula were acquired. COMPARISON: [facility], CR, XR TIBIA FIBULA RT 2V, 09/30/2019, 16:07. FINDINGS: Bones: No fractures or dislocations. No suspicious bony lesions. Severe talar navicular joint degeneration, chronic. Mild knee osteoarthritis and chondrocalcinosis. Soft tissues: No suspicious soft tissue calcifications or masses. IMPRESSION: No fracture Severe hindfoot joint degeneration Dictated by: David Brewer M.D. on 09/30/2019 at 17:18 Approved by: David Brewer M.D. on 09/30/2019 at 17:19
--- NOTE | 2019-09-30 16:30 | DI.RAD.S_ITS ---
PROCEDURE: XR ANKLE RT 2V INDICATIONS: Pain after trauma TECHNIQUE: 2 views of the ankle were acquired. COMPARISON: None. FINDINGS: Bones: No dislocations. Ankle mortise is normally aligned. There is a diagonal fracture the distal diaphysis of both the tibia and fibula, mildly displaced laterally. What appears to be an enchondroma is seen within the medullary space of the distal tibia. Soft tissues: No tibiotalar joint effusion. Achilles tendon appears normal. IMPRESSION: Diagonal distal tibial and fibular diaphyseal fractures, mildly displaced as noted. 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 Please note that differentiation between low-grade chondrosarcoma and endochondroma cannot be established by plain film imaging. Dictated by: Meng Marion M.D. on 09/30/2019 at 17:31 Approved by: Meng Marion M.D. on 09/30/2019 at 17:34
[2019-09-30] MEDS: HYDROMORPHONE 1 MG INJ IV ×2 (16:35→18:19)
[2019-09-30] MEDS: ONDANSETRON 4 MG/2 ML INJ IV ×3 (16:36→20:18)
[2019-09-30 16:51] LABS: Add Manual Diff / Slide Review NO; Basophils Absolute Auto 100 /uL (0-100); Eosinophils Absolute Auto 200 /uL (0-450); Eosinophils Percent Auto 2.8 % (2-4); Hematocrit 39.7 % (36-46); Hemoglobin 13.4 g/dL (12.0-16.0); Lymphocytes Absolute Auto 2200 /uL (1100-4500); Lymphocytes Percent Auto 28.7 % (25-40); Mean Corpuscular HGB Conc 33.9 % (30-36); Mean Corpuscular Hemoglobin 30.6 PG (26-34); Mean Corpuscular Volume 90.3 fL (80-100); Monocytes Absolute Auto 900 /uL (0-900); Neutrophils Absolute Auto 4400 /uL (1500-7000); Neutrophils Percent Auto 56.5 % (50-75); Platelet Count 210 X10^3/uL (150-400); Red Cell Distribution Width 14.2 % (11.6-14.8); White Blood Cell Count 7.8 X10^3/uL (4.5-11.0)
--- NOTE | 2019-09-30 16:58 | ED_ITS ---
HPI - Extremity Injury (Lower) General Chief Complaint: Extremity Injury, Lower Stated Complaint: right leg pain from an injury Time Seen by Provider: 09/30/19 16:43 Source: patient and family Mode of arrival: Wheelchair History of Present Illness HPI Narrative: CC: Severe pain in her right lower leg secondary to a farming accident. HPI: The patient is a 79-year-old female who states that he she questionably was walking behind or standing behind a hay [place] when the installment loan collector ran over her right lower leg and part of her left leg. She crushed the leg and developed severe pain in the right leg. She has a previous fracture. She was knocked down but did not injure her head. She has no headache neck pain back pain chest pain or abdominal pain. Her pain is 10/10 in intensity. Severe pain with any movement of the right leg. She had no nausea vomiting diarrhea or passing-out she was not incontinent of stool or urine. The patient last ate at noon. She ate spaghetti and had milk with her meal. She has had nothing to eat since then. The patient denies a history of diabetes mellitus hypertension myocardial infarction congestive heart failure asthma COPD. She has had reconstructive surgery of her right ankle. She does not smoke cigarettes and never has and does not drink alcohol or drug use any drugs or marijuana products. She is not on any medications. Related Data Home Medications Medication Instructions Recorded Confirmed No Known Home Medications 11/23/17 09/30/19 Allergies Allergy/AdvReac Type Severity Reaction Status Date / Time No Known Drug Allergies Allergy Verified 11/23/17 15:42 Review of Systems Review of Systems Narrative: Review of systems were all negative except for those mentioned in the history of present illness. Patient History Family History (Updated 09/30/19 @ 23:27 by Helga Gibbs MD) Mother FH: heart attack Father FH: heart attack Social History household members: spouse Smoking Status: Never smoker alcohol intake: never Smoking Status: Never smoker Substance Use Type: does not use Exam Narrative Exam Narrative: PHYSICAL EXAM: CONSTITUTIONAL: Awake, Alert, Oriented, Coherent, Cooperative in acute distress in pain in her right leg. HEAD: AT/NC EENT: PERRL, FROM of eyes, NOSE:No epistaxis or nasal drainage MOUTH:Oral mucosa is moist and pink, NECK: Supple, no obvious JVD, Trachea is midline without stridor, . THORAX: No deformity, retractions, chest wall tenderness. LUNGS: Clear, symmetrical breath sounds without respiratory distress. HEART: Normal heart tones, regular rhythm and rate without murmur. ABDOMEN: Soft, non-tender, without guarding, rebound, rigidity or palpable mass. EXTREMITIES: The patient's distal left leg has good dorsalis pedis pulse and capillary refill is 2+. Her right distal leg is swollen over the lateral calf and any lateral movement causes severe pain and discomfort in her lower leg. We are unable to take and remove her boot. She has intact capillary refill. SKIN: No rash. Bruising over the distal medial left leg as well as the lateral and anterior right leg. NEURO: Awake, alert, oriented, conversive, cranial nerves II-XII are symmetrical , moves all 4 extremities Initial Vital Signs Initial Vital Signs: Vital Signs Temperature 97.8 F 09/30/19 16:10 Pulse Rate 74 09/30/19 16:10 Respiratory Rate 18 09/30/19 16:10 Blood Pressure 174/78 H 09/30/19 16:10 Pulse Oximetry 98 09/30/19 16:10 Course Course Course Narrative: 1819: I discussed the patient with Dr. Frias who will consult and evaluate and take care of her fractured leg. She recommends that the patient be admitted to the hospitalist. The hospitalist has been called to admit the patient. 1856: The patient's Mallampati is II. Her last full meal was at noon today which included milk and spaghetti. 1929: PROCEDURE NOTE (CONSCIOUS SEDATION: Permit signed. Agents: Ketofol: 65 mg of ketamine (1mg/kg, weight 145 lbs;65 kg) and 20 mg of propofol. Monitor: NSR, CO2: 38, O2 Sat: 98-100%, Tolerated well Procedure: traction followed by application of a 6 inch posterior splint to i mmobilize the horizontal, transverse, closed fracture of the distal metaphyseal fracture of the right tibia and fibula with displacement and overlap. Neuro vascular intact after procedure completed.Tolerated well. Orders Ordered: Acetaminophen (Tylenol) 650 mg PO Q6HR PRN PRN Reason: Fever/Mild Pain (1-3) Hydrocodone Bitart/Acetaminophen ([place] 5/325) 1 tab PO Q4HR PRN PRN Reason: Pain, Moderate (4-6) Bisacodyl (Dulcolax) 10 mg [place] DAILY PRN PRN Reason: Constipation Docusate Sodium (Colace) 100 mg PO BID GAVIN Hydromorphone HCl (Dilaudid) 0.5 mg IV Q6HR PRN PRN Reason: Pain, Moderate (4-6) Last Admin: 10/01/19 00:28 Dose: 0.5 mg Documented by: SU Hydromorphone HCl (Dilaudid) 1 mg IV Q4H PRN PRN Reason: Pain, Severe (7-10) Last Admin: 10/01/19 05:12 Dose: 1 mg Documented by: SU Sodium Chloride (Normal Saline 0.9%) 1,000 mls @ 100 mls/hr IV CONT GAVIN Last Admin: 10/01/19 00:27 Dose: 100 mls/hr Documented by: SU Metoclopramide HCl (Reglan) 10 mg IV Q6HR PRN PRN Reason: Nausea And Vomiting Last Admin: 09/30/19 22:35 Dose: 10 mg Documented by: MARILEE Naloxone HCl (Narcan) 0.2 mg IV Q2MIN PRN PRN Reason: Opiate Reversal Sodium Chloride (Normal Saline 0.9% Flush) 10 ml IV PRN PRN PRN Reason: Flush Discontinued Medications Hydromorphone HCl (Dilaudid) 1 mg IV NOW ONE Stop: 09/30/19 16:24 Last Admin: 09/30/19 16:35 Dose: 1 mg Documented by: KEYUR Hydromorphone HCl (Dilaudid) 1 mg IV NOW ONE Stop: 09/30/19 18:16 Last Admin: 09/30/19 18:19 Dose: 1 mg Documented by: OLGA Sodium Chloride (Normal Saline 0.9%) 1,000 mls @ 150 mls/hr IV CONT GAVIN Last Infusion: 10/01/19 00:15 Dose: 0 mls/hr Documented by: Infusion: 09/30/19 21:39 Dose: 150 mls/hr Documented by: Infusion: 09/30/19 20:30 Dose: 0 mls/hr Documented by: Admin: 09/30/19 17:30 Dose: 150 mls/hr Documented by: OLGA Dextrose/Sodium Chloride (Dextrose 5%-0.9% Ns) 1,000 mls @ 100 mls/hr IV CONT GAVIN Last Admin: 10/01/19 00:23 Dose: Not Given Documented by: SU Ketamine HCl (Ketalar) 65 mg IV NOW ONE Stop: 09/30/19 18:47 Last Admin: 09/30/19 19:30 Dose: 65 mg Documented by: OLGA Ondansetron HCl (Zofran) 4 mg IV NOW ONE Stop: 09/30/19 16:24 Last Admin: 09/30/19 16:36 Dose: 4 mg Documented by: KEYUR Ondansetron HCl (Zofran) 4 mg IV NOW ONE Stop: 09/30/19 18:16 Last Admin: 09/30/19 18:19 Dose: 4 mg Documented by: OLGA Ondansetron HCl (Zofran) 4 mg IV NOW ONE Stop: 09/30/19 20:12 Last Admin: 09/30/19 20:18 Dose: 4 mg Documented by: OLGA Vital Signs Vital signs: Vital Signs - 8 hr 09/30/19 16:10 09/30/19 17:50 Temperature 97.8 F Pulse Rate 74 82 Respiratory Rate 18 17 Blood Pressure 174/78 H 150/84 H Pulse Oximetry 98 97 MDM - Extremity Injury (Lower) Lab Data Result diagrams: 10/01/19 05:10 10/01/19 05:10 Labs: Lab Results 09/30/19 09/30/19 Range/Units 16:25 16:25 WBC 7.8 (4.5-11.0) X10^3/uL RBC 4.40 (4.0-5.2) X10^6/uL Hgb 13.4 (12.0-16.0) g/dL Hct 39.7 (36-46) % MCV 90.3 (80-100) fL MCH 30.6 (26-34) PG MCHC 33.9 (30-36) % RDW 14.2 (11.6-14.8) % Plt Count 210 (150-400) X10^3/uL Neut % (Auto) 56.5 (50-75) % Lymph % (Auto) 28.7 (25-40) % [place] % (Auto) 11.0 (3-14) % Eos % (Auto) 2.8 (2-4) % Baso % (Auto) 1.0 (0-2) % Neut # (Auto) 4400 (4532-4426) /uL Lymph # (Auto) 2200 (5306-6201) /uL [place] # (Auto) 900 (0-900) /uL Eos # (Auto) 200 (0-450) /uL Baso # (Auto) 100 (0-100) /uL Sodium 139 (137-145) mmol/L Potassium 4.2 (3.4-5.1) mmol/L Chloride 107 (98-107) mmol/L Carbon Dioxide 26 (22-32) mmol/L BUN 24 H (7-17) mg/dL Creatinine 0.97 (0.52-1.04) mg/dL Estimated GFR 55.4 L (>60) mL/min BUN/Creatinine Ratio 24.7 H (6-22) Glucose 114 H (80-110) mg/dL Calcium 10.1 (8.4-10.2) mg/dL Total Bilirubin 0.5 (0.2-1.3) mg/dL AST 31 (14-36) IU/L ALT 21 (<35) IU/L Alkaline Phosphatase 72 (38-126) U/L Total Creatine Kinase 139 H (30-135) U/L Total Protein 7.8 (6.3-8.2) g/dL Albumin 4.3 (3.5-5.0) g/dL Globulin 3.5 (1.7-4.1) g/dL Albumin/Globulin Ratio 1.2 (1.0-2.8) Point of Care Testing Test Results Negative Discharge Plan Departure Patient Disposition: Admitted As Inpatient Clinical Impression: Fracture of tibia and fibula Qualifiers: Encounter type: initial encounter Fracture type: closed Laterality: right Qualified Code(s): S82.201A - Unspecified fracture of shaft of right tibia, initial encounter for closed fracture Crush injury lower leg Qualifiers: Encounter type: initial encounter Laterality: left Qualified Code(s): S87.82XA - Crushing injury of left lower leg, initial encounter Discharge Date/Time: 09/30/19 20:29 Referrals: Daniel Christina MD [Primary Care Provider] - Admit Date/Time: 09/30/19 19:54 Admit Provider: Helga Gibbs
[2019-09-30 17:09] LABS: Alanine Aminotransferase 21 IU/L (<35); Albumin 4.3 g/dL (3.5-5.0); Albumin Globulin Ratio 1.2 (1.0-2.8); Alkaline Phosphatase 72 U/L (38-126); Aspartate Aminotransferase 31 IU/L (14-36); BUN Creatinine Ratio 24.7 (6-22); Bilirubin Total 0.5 mg/dL (0.2-1.3); Blood Urea Nitrogen 24 mg/dL (7-17); Calcium 10.1 mg/dL (8.4-10.2); Carbon Dioxide 26 mmol/L (22-32); Chloride 107 mmol/L (98-107); Creatine Kinase 139 U/L (30-135); Estimated Glomerular Filt Rate 55.4 mL/min (>60); Globulin 3.5 g/dL (1.7-4.1); Glucose 114 mg/dL (80-110); HEMOLYSIS < 15 (0-50); Potassium 4.2 mmol/L (3.4-5.1); Sodium 139 mmol/L (137-145); Total Protein 7.8 g/dL (6.3-8.2)
[2019-09-30] MEDS: SODIUM CHLORIDE 0.9% 1,000 ML 150 ML IV (17:30)
--- NOTE | 2019-09-30 17:31 | PC.NURSE ---
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 He r right lower leg is extremely painful to touch. The leg is cool to touch but is not increasing in pain. Her left leg is painful but her pedal pulse is bounding and her cap refill is <2 secs. The right foot could not be assessed due to her pain and her having a boot on her foot.
[2019-09-30] MEDS: KETAMINE 500 MG/5 ML INJ 65 MG IV (19:30)
--- NOTE | 2019-09-30 21:40 | PM.HP.1 ---
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 She noted the acute onset of sterile fairly severe right tibia pain as well as pain to the left leg. 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 She notes she has had chronic pain in the right ankle and chronic stiffness. She did have some problems with failure of fixation and has had her hardware removed previously. She denies a history of chronic infection. She also had a horse fall on her left foot when she was a child and has known significant arthritis in the left foot. 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 Patient History Family & Social History Social History: household members spouse Prior Living Arrangements House Safety & Behavioral: Feels Safe in Current Yes Environment Been Physically Hurt or No Threatened By a Person Suicidal Ideation Description None Suicide Plan Description No Plan Tobacco & Substance use: Smoking Status Never smoker alcohol intake never Substance Use Type does not use Meds Home Medications and Allergies Home Medications Medication Instructions Recorded Confirmed Type No Known Home Medications 11/23/17 09/30/19 History Allergies Allergy/AdvReac Type Severity Reaction Status Date / Time No Known Drug Allergies Allergy Verified 11/23/17 15:42 Review of Systems Review of Systems Narrative: She notes she has been feeling well she takes no medications and 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 Exam Vital Signs (past 8 hours): - 09/30/19 16:10 09/30/19 17:50 09/30/19 18:56 Temperature 97.8 F Pulse Rate 74 82 72 Respiratory Rate 18 17 Blood Pressure 174/78 H 150/84 H Blood Pressure [Right Arm] Pulse Oximetry 98 97 96 09/30/19 19:00 09/30/19 19:05 09/30/19 19:06 Temperature Pulse Rate 64 62 66 Respiratory Rate Blood Pressure 151/72 H 125/62 Blood Pressure [Right Arm] Pulse Oximetry 93 93 96 09/30/19 19:10 09/30/19 19:11 09/30/19 19:15 Temperature Pulse Rate 69 73 64 Respiratory Rate Blood Pressure 161/77 H Blood Pressure [Right Arm] Pulse Oximetry 96 96 91 09/30/19 19:16 09/30/19 19:20 09/30/19 19:25 Temperature Pulse Rate 64 74 66 Respiratory Rate Blood Pressure 153/73 H 156/79 H Blood Pressure [Right Arm] Pulse Oximetry 94 92 100 09/30/19 19:26 09/30/19 19:30 09/30/19 19:35 Temperature Pulse Rate 74 68 78 Respiratory Rate 15 17 Blood Pressure 188/85 H 189/84 H 196/91 H Blood Pressure [Right Arm] 196/91 H Pulse Oximetry 100 100 100 09/30/19 19:40 09/30/19 19:45 09/30/19 19:50 Temperature Pulse Rate 94 H 99 H 100 H Respiratory Rate 18 16 10 L Blood Pressure 190/92 H 189/90 H 190/91 H Blood Pressure [Right Arm] 189/90 H 190/91 H Pulse Oximetry 100 100 100 09/30/19 19:55 09/30/19 20:00 09/30/19 20:02 Temperature Pulse Rate 97 H 86 84 Respiratory Rate 8 L 8 L 14 Blood Pressure 192/92 H 189/92 H Blood Pressure [Right Arm] 192/92 H 189/92 H 191/92 H Pulse Oximetry 100 100 09/30/19 20:05 09/30/19 20:10 09/30/19 20:27 Temperature Pulse Rate 89 104 H 76 Respiratory Rate 24 21 12 Blood Pressure 191/92 H 161/77 H Blood Pressure [Right Arm] Pulse Oximetry 100 96 96 09/30/19 20:55 Temperature 96.4 F L Pulse Rate 80 Respiratory Rate 19 Blood Pressure 159/85 H Blood Pressure [Right Arm] Pulse Oximetry 94 Oxygen Delivery Method Room Air Oxygen Flow Rate 15 Narrative Exam Narrative: HEENT is benign, cor regular rate and rhythm, lungs clear, abdomen soft and benign, right lower extremity is there is a splint in place her compartments are soft she has adequate capillary refill distally imaging in fire toe flexors and extensors with trace motion, she has no pain with range of motion in her hips bilaterally fairly minimal pain with gentle right knee motion and no pain with left knee motion. She does have a moderate of bruise on the left calf her compartments are soft she has significant arthritic change on the left foot at the tarsometatarsal joint but excellent range of motion in the ankle sensations intact distally. Objective Labs Result Diagrams: 09/30/19 16:25 09/30/19 16:25 Labs: Laboratory Results - last 24 hr 09/30/19 09/30/19 16:25 16:25 WBC 7.8 RBC 4.40 Hgb 13.4 Hct 39.7 MCV 90.3 MCH 30.6 MCHC 33.9 RDW 14.2 Plt Count 210 Neut % (Auto) 56.5 Lymph % (Auto) 28.7 [place] % (Auto) 11.0 Eos % (Auto) 2.8 Baso % (Auto) 1.0 Neut # (Auto) 4400 Lymph # (Auto) 2200 [place] # (Auto) 900 Eos # (Auto) 200 Baso # (Auto) 100 Sodium 139 Potassium 4.2 Chloride 107 Carbon Dioxide 26 BUN 24 H Creatinine 0.97 Estimated GFR 55.4 L BUN/Creatinine Ratio 24.7 H Glucose 114 H Calcium 10.1 Total Bilirubin 0.5 AST 31 ALT 21 Alkaline Phosphatase 72 Total Creatine Kinase 139 H Total Protein 7.8 Albumin 4.3 Globulin 3.5 Albumin/Globulin Ratio 1.2 X-rays show right distal tib-fib fracture in the junction of the metaphysis and the diaphysis, there is also sclerotic changes in the distal tibia, and there is fairly severe right ankle posttraumatic arthritis, Left tib fib no evidence of a fracture, severe talonavicular and navicular cuneiform osteoarthritis Assessment & Plan Assessment & Plan narrative: Closed right tib-fib fracture with gross displacement and pre-existing severe right ankle osteoarthritis. I have recommended intramedullary nailing for the right tibia. Procedure options risks benefits and complications were discussed in detail. She is physically active and I would like to get her leg stabilized so that hopefully we can get her up ambulating again. Her compartments are soft in both legs but it was a substantial crushing injury and she does have a significant contusion in her left leg. She is admitted for pain control observation and neurovascular monitoring. Planning to do right tibial intramedullary nailing likely tomorrow. Options risks benefits and complications discussed in detail. She consents to proceed with surgery. We will use aspirin postoperatively for DVT prophylaxis. Quality VTE Deep Vein Thrombosis/Pulmonary Embolism Present on Admission: No
[2019-09-30] MEDS: METOCLOPRAMIDE 10 MG/2 ML INJ IV (22:35)
--- NOTE | 2019-09-30 23:23 | PM.HP.1 ---
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 Patient suffered a tib-fib fracture. She was seen and evaluated in the emergency room. It she is admitted to the hospital at this time for definitive surgical repair. The patient is a conti. She has had multiple injuries. She has had a right ankle crush injury. She has had injury to the left ankle. And also a torn thumb. She has no significant past medical history. She was here once before for chest pain which was unremarkable. Patient is lying in bed at this time and has no specific complaints of pain. She denies any shortness of breath chest pain nausea vomiting diarrhea difficulty with urination or other symptoms. Patient History Family & Social History Family History (Updated 09/30/19 @ 23:27 by Helga Gibbs MD) Mother FH: heart attack Father FH: heart attack Social History: household members spouse Prior Living Arrangements House Safety & Behavioral: Feels Safe in Current Yes Environment Been Physically Hurt or No Threatened By a Person Suicidal Ideation Description None Suicide Plan Description No Plan Tobacco & Substance use: Smoking Status Never smoker alcohol intake never Substance Use Type does not use Meds Home Medications and Allergies Home Medications Medication Instructions Recorded Confirmed Type No Known Home Medications 11/23/17 09/30/19 History Allergies Allergy/AdvReac Type Severity Reaction Status Date / Time No Known Drug Allergies Allergy Verified 11/23/17 15:42 Review of Systems Review of Systems ROS: Yes All systems reviewed with the patient and are negative except as otherwise documented Exam Vital Signs (past 8 hours): - 09/30/19 16:10 09/30/19 17:50 09/30/19 18:56 Temperature 97.8 F Pulse Rate 74 82 72 Respiratory Rate 18 17 Blood Pressure 174/78 H 150/84 H Blood Pressure [Right Arm] Pulse Oximetry 98 97 96 09/30/19 19:00 09/30/19 19:05 09/30/19 19:06 Temperature Pulse Rate 64 62 66 Respiratory Rate Blood Pressure 151/72 H 125/62 Blood Pressure [Right Arm] Pulse Oximetry 93 93 96 09/30/19 19:10 09/30/19 19:11 09/30/19 19:15 Temperature Pulse Rate 69 73 64 Respiratory Rate Blood Pressure 161/77 H Blood Pressure [Right Arm] Pulse Oximetry 96 96 91 09/30/19 19:16 09/30/19 19:20 09/30/19 19:25 Temperature Pulse Rate 64 74 66 Respiratory Rate Blood Pressure 153/73 H 156/79 H Blood Pressure [Right Arm] Pulse Oximetry 94 92 100 09/30/19 19:26 09/30/19 19:30 09/30/19 19:35 Temperature Pulse Rate 74 68 78 Respiratory Rate 15 17 Blood Pressure 188/85 H 189/84 H 196/91 H Blood Pressure [Right Arm] 196/91 H Pulse Oximetry 100 100 100 09/30/19 19:40 09/30/19 19:45 09/30/19 19:50 Temperature Pulse Rate 94 H 99 H 100 H Respiratory Rate 18 16 10 L Blood Pressure 190/92 H 189/90 H 190/91 H Blood Pressure [Right Arm] 189/90 H 190/91 H Pulse Oximetry 100 100 100 09/30/19 19:55 09/30/19 20:00 09/30/19 20:02 Temperature Pulse Rate 97 H 86 84 Respiratory Rate 8 L 8 L 14 Blood Pressure 192/92 H 189/92 H Blood Pressure [Right Arm] 192/92 H 189/92 H 191/92 H Pulse Oximetry 100 100 09/30/19 20:05 09/30/19 20:10 09/30/19 20:27 Temperature Pulse Rate 89 104 H 76 Respiratory Rate 24 21 12 Blood Pressure 191/92 H 161/77 H Blood Pressure [Right Arm] Pulse Oximetry 100 96 96 09/30/19 20:55 Temperature 96.4 F L Pulse Rate 80 Respiratory Rate 19 Blood Pressure 159/85 H Blood Pressure [Right Arm] Pulse Oximetry 94 Oxygen Delivery Method Room Air Oxygen Flow Rate 15 Narrative Exam Narrative: Pleasant female lying in bed in no obvious distress HEENT normocephalic atraumatic, extraocular muscles are intact, oropharynx is clear, neck is supple, no adenopathy or thyromegaly Lungs: Clear to auscultation Cardiac exam: Regular rate and rhythm normal S1-S2 with a 2/6 systolic ejection murmur Abdomen: Soft nontender nondistended no appreciable hepatosplenomegaly Extremities: Right leg in a splint/brace Left leg with no edema Neuro exam is nonfocal Mental status is patient is awake alert and answers questions appropriately, no confusion or hallucination Objective Labs Result Diagrams: 09/30/19 16:25 09/30/19 16:25 Labs: Laboratory Results - last 24 hr 09/30/19 09/30/19 16:25 16:25 WBC 7.8 RBC 4.40 Hgb 13.4 Hct 39.7 MCV 90.3 MCH 30.6 MCHC 33.9 RDW 14.2 Plt Count 210 Neut % (Auto) 56.5 Lymph % (Auto) 28.7 [place] % (Auto) 11.0 Eos % (Auto) 2.8 Baso % (Auto) 1.0 Neut # (Auto) 4400 Lymph # (Auto) 2200 [place] # (Auto) 900 Eos # (Auto) 200 Baso # (Auto) 100 Sodium 139 Potassium 4.2 Chloride 107 Carbon Dioxide 26 BUN 24 H Creatinine 0.97 Estimated GFR 55.4 L BUN/Creatinine Ratio 24.7 H Glucose 114 H Calcium 10.1 Total Bilirubin 0.5 AST 31 ALT 21 Alkaline Phosphatase 72 Total Creatine Kinase 139 H Total Protein 7.8 Albumin 4.3 Globulin 3.5 Albumin/Globulin Ratio 1.2 Assessment & Plan Assessment & Plan narrative: 1. 79-year-old female admitted to the hospital following a injury resulting in a tib-fib fracture -patient has no significant risk factors for this surgery -this appears to be a traumatic injury -will continue Dilaudid and Vicodin for pain -anticipate definitive surgery tomorrow -will defer DVT prophylaxis until postoperatively 2. Probable hypertension -will defer treatment as the patient is acutely In pain from her injury 3. Patient's is her surrogate decision maker. She will be admitted to the hospital as an inpatient. Patient is a full code will note that her record accordingly. Quality VTE Deep Vein Thrombosis/Pulmonary Embolism Present on Admission: No
[2019-10-01] VITALS (19 sets, daily range): BP systolic 109–178; BP diastolic 43–99; PULSE 67–85; RESP 15–24; TEMP 35.7–37.4; O2SAT 95–99; BMI 24.5
--- NOTE | 2019-10-01 | DI.RAD.S_ITS ---
PROCEDURE: XR TIBIA FUBULA RT 2V INDICATIONS: POST OPERATIVE RIGHT TIB FIB TECHNIQUE: 2 views of the tibia and fibula were acquired. COMPARISON: [facility], CR, XR TIBIA FIBULA RT 2V, 10/01/2019, 13:14. FINDINGS: Bones: Intramedullary tibial richard and transverse proximal and distal fixation screws are present. There are overlying skin bettye. There is improved alignment of the spiral/transverse distal tibia and fibular fractures. The knee joint is intact. There is chronic tibiotalar joint space loss. Soft tissues: No suspicious soft tissue calcifications or masses. IMPRESSION: 1. Expected appearance post tibial rodding. Dictated by: Delfina Singh M.D. on 10/01/2019 at 15:06 Approved by: Delfina Singh M.D. on 10/01/2019 at 15:08
--- NOTE | 2019-10-01 | DI.RAD.S_ITS ---
PROCEDURE: XR TIBIA FUBULA RT 2V INDICATIONS: INTRA OP RIGHT TIB FIB TECHNIQUE: 2 views of the tibia and fibula were acquired. COMPARISON: [facility], CR, XR TIBIA FIBULA LT 2V, 09/30/2019, 16:25. [facility], CR, XR TIBIA FIBULA RT 2V, 09/30/2019, 16:07. FINDINGS: Bones: Intraoperative evaluation showing medullary kishor fixation across the previously identified fracture involving the distal tibia and fibular diaphysis. The fibula malalignment has been reduced, to virtual anatomic alignment at this time.. Soft tissues: No suspicious soft tissue calcifications or masses. IMPRESSION: Excellent anatomic alignment established during medullary kishor fracture fixation involving the distal tibial diaphysis bringing the fibular diaphyseal fracture into virtual anatomic alignment. Kishor fixed both proximally and distally in expected position. Dictated by: Meng Marion M.D. on 10/01/2019 at 14:08 Approved by: Meng Marion M.D. on 10/01/2019 at 14:09
[2019-10-01] MEDS: SODIUM CHLORIDE 0.9% 1,000 ML 100 ML IV (00:27)
[2019-10-01] MEDS: HYDROMORPHONE 1 MG INJ 0.5 MG IV (00:28)
[2019-10-01] MEDS: HYDROMORPHONE 1 MG INJ IV (05:12)
[2019-10-01 05:39] LABS: Add Manual Diff / Slide Review NO; Basophils Absolute Auto 0 /uL (0-100); Basophils Percent Auto 0.2 % (0-2); Eosinophils Absolute Auto 0 /uL (0-450); Hematocrit 36.6 % (36-46); Lymphocytes Absolute Auto 1700 /uL (1100-4500); Lymphocytes Percent Auto 17.1 % (25-40); Mean Corpuscular HGB Conc 32.7 % (30-36); Mean Corpuscular Hemoglobin 29.9 PG (26-34); Mean Corpuscular Volume 91.3 fL (80-100); Monocytes Absolute Auto 1000 /uL (0-900); Monocytes Percent Auto 10.5 % (3-14); Neutrophils Absolute Auto 7100 /uL (1500-7000); Neutrophils Percent Auto 72.2 % (50-75); Platelet Count 186 X10^3/uL (150-400); Red Blood Cell Count 4.01 X10^6/uL (4.0-5.2); Red Cell Distribution Width 14.1 % (11.6-14.8); White Blood Cell Count 9.9 X10^3/uL (4.5-11.0)
[2019-10-01 05:49] LABS: BUN Creatinine Ratio 25.7 (6-22); Blood Urea Nitrogen 19 mg/dL (7-17); Calcium 9.2 mg/dL (8.4-10.2); Carbon Dioxide 27 mmol/L (22-32); Chloride 107 mmol/L (98-107); Estimated Glomerular Filt Rate > 60.0 mL/min (>60); Glucose 113 mg/dL (80-110); HEMOLYSIS < 15 (0-50); Potassium 5.1 mmol/L (3.4-5.1); Sodium 139 mmol/L (137-145)
--- NOTE | 2019-10-01 07:49 | PM.PN.1 ---
Subjective Subjective Date Patient Seen: 10/01/19 Interval history: Alisia Mcguire is a 79-year-old female with no significant past medical history who presented after a traumatic injury with a right tibia fibula fracture. The patient is resting in bed comfortably. She reports pain in her right leg that is controlled with pain medication. She has no complaints overall and denies headache, chest pain, shortness of breath, abdominal pain, nausea, vomiting, fever, chills, dysuria, diarrhea or constipation. She is voiding without difficulty. Patient has been NPO and plan to go to OR later this morning for surgical repair of right tibia fibula fracture. Exam Vital Signs (past 8 hours): - 10/01/19 00:06 10/01/19 03:21 10/01/19 04:05 Temperature 96.9 F L 96.9 F L Pulse Rate 79 75 Respiratory Rate 16 16 Blood Pressure 143/69 H 132/77 Pulse Oximetry 95 95 95 Oxygen Delivery Method Room Air Oxygen Flow Rate 0 Narrative Exam Narrative: General: Older female sitting in bed and in no acute distress, appears younger than stated age, well-developed, well-nourished, appropriately interactive. HEENT: Normocephalic, atraumatic. External ears without defect. Pupils equal, round, and reactive to light. Anicteric sclerae, moist conjunctivae, and no lid lag. Oropharynx free of erythema and cobble stoning with moist mucosa. Neck: Supple with full range of motion. No lymphadenopathy or thyromegaly. Cardiovascular: Regular rate and rhythm without murmurs, rubs, or gallops appreciated. Pulmonary: Clear to auscultation bilaterally without crackles, wheezes, or rhonchi. Normal respiratory effort with no use of accessory muscles. Abdomen: Soft, bowel sounds present, nontender, nondistended. No hepatosplenomegaly or masses appreciated. Extremities: No clubbing, cyanosis, or edema. Right leg splinted. Left lower extremity with mild bruising medially at distal 3rd of leg. Skin: Normal temperature, turgor, and texture; no rash, ulcers, or subcutaneous nodules appreciated. Neurological: Cranial nerves grossly intact. Psychiatric: Normal mood and affect. Alert and oriented to person, place, and time. Objective Labs Result Diagrams: 10/01/19 05:10 10/01/19 05:10 Labs: Laboratory Results - last 24 hr 09/30/19 09/30/19 10/01/19 16:25 16:25 05:10 WBC 7.8 9.9 RBC 4.40 4.01 Hgb 13.4 12.0 Hct 39.7 36.6 MCV 90.3 91.3 MCH 30.6 29.9 MCHC 33.9 32.7 RDW 14.2 14.1 Plt Count 210 186 Neut % (Auto) 56.5 72.2 Lymph % (Auto) 28.7 17.1 L [place] % (Auto) 11.0 10.5 Eos % (Auto) 2.8 0.0 L Baso % (Auto) 1.0 0.2 Neut # (Auto) 4400 7100 H Lymph # (Auto) 2200 1700 [place] # (Auto) 900 1000 H Eos # (Auto) 200 0 Baso # (Auto) 100 0 Sodium 139 Potassium 4.2 Chloride 107 Carbon Dioxide 26 BUN 24 H Creatinine 0.97 Estimated GFR 55.4 L BUN/Creatinine Ratio 24.7 H Glucose 114 H Calcium 10.1 Total Bilirubin 0.5 AST 31 ALT 21 Alkaline Phosphatase 72 Total Creatine Kinase 139 H Total Protein 7.8 Albumin 4.3 Globulin 3.5 Albumin/Globulin Ratio 1.2 10/01/19 05:10 WBC RBC Hgb Hct MCV MCH MCHC RDW Plt Count Neut % (Auto) Lymph % (Auto) [place] % (Auto) Eos % (Auto) Baso % (Auto) Neut # (Auto) Lymph # (Auto) [place] # (Auto) Eos # (Auto) Baso # (Auto) Sodium 139 Potassium 5.1 Chloride 107 Carbon Dioxide 27 BUN 19 H Creatinine 0.74 Estimated GFR > 60.0 BUN/Creatinine Ratio 25.7 H Glucose 113 H Calcium 9.2 Total Bilirubin AST ALT Alkaline Phosphatase Total Creatine Kinase Total Protein Albumin Globulin Albumin/Globulin Ratio Assessment & Plan Assessment & Plan narrative: Alisia Mcguire is a 79-year-old female with no significant past medical history who presented after a traumatic injury with a right tibia fibula fracture. 1. Acute right tibia fibula fracture, secondary to traumatic injury, present on admission. Active. 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 -Right leg x-ray demonstrated diagonal distal tibial and fibular diaphyseal fractures, mildly displaced. -Continue pain control with acetaminophen 650 mg every 6 hours as needed for mild pain, hydrocodone 5-325 mg every 4 hours as needed for moderate pain and Dilaudid 0.5 mg every 4 hours as needed for severe breakthrough pain. -Consulted orthopedic surgery, Dr. Frias who plans to perform surgical repair of right tib-fib fracture today. NPO since midnight. Continue postoperative management, pain control and DVT prophylaxis per Orthopedic surgery. 2. Probable untreated hypertension, present on admission. Stable. -Patient may possibly have untreated hypertension after review of medical records versus pain response. -Continue to monitor and treat pain. -Continue to monitor blood pressure closely and treat if necessary. Code status: Full code, designates spouse as surrogate decision maker VTE prophylaxis: SCD, held chemical pending surgical repair of right leg Disposition: Patient likely discharge in 1-2 days either home with home health versus penitentiary facility for continued rehabilitation. Quality VTE Deep Vein Thrombosis/Pulmonary Embolism Present on Admission: No
[2019-10-01 08:05] LABS: Magnesium 2.1 mg/dL (1.6-2.3)
[2019-10-01 08:48] LABS: COVID19 -Nasal RAPID Negative (Negative)
--- NOTE | 2019-10-01 10:21 | PC.NURSE ---
Day shift note: Patient awake, alert, and pleasantly oriented. VSS and afebrile. No c/o pain. Off the floor with Stephanie BAILEY to OR.
[2019-10-01] MEDS: METOCLOPRAMIDE 10 MG/2 ML INJ IV (10:55)
[2019-10-01] MEDS: ONDANSETRON 4 MG/2 ML INJ IV (10:55)
[2019-10-01] MEDS: LACTATED RINGERS 1,000 ML 100 ML IV ×2 (11:00→13:49)
[2019-10-01] MEDS: CEFAZOLIN 2 GM/100 ML FROZ.PIGGY IV ×2 (11:45→19:22)
--- NOTE | 2019-10-01 12:25 | SUR.OPER ---
Supine on padded OR bed, head on pillow, arms secured on padded arm boards at <90 degrees abduction, legs positioned per surgeon, safety belt at abdomen, tape over non operative lower leg.
[2019-10-01] MEDS: BUPIVACAINE 0.5% W/ EPI (PF) 30 ML VIAL INJ (12:33)
--- NOTE | 2019-10-01 14:16 | P.OP_ITS ---
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 She is brought the operating room for rodding of her right tibia. Surgeon: Swati Frias Human Resources Associate: Tawnya Wong Anesthesia Type: Spinal Operative Notes Findings: Adequate alignment and fixation with the tibia with proximal and distal interlocking, adequate bone Closure Type: primary Specimen(s): none sent Prosthetic devices, grafts, tissues, transplants, or devices: Frias and Nephew 10 x 33 tibial nail, 5 interlocking screws Estimated Blood Loss (mL): 200 Blood products transfused: none Tourniquet time (min): 0 Procedure in detail: Patient is brought to the operating room and underwent induction of a spinal anesthetic. Time-out was performed and 2 g of Ancef were given. She was positioned on the radiolucent table and her right leg was prepped and draped in sterile fashion. We placed the high-thigh tourniquet but did not inflate it. Incision was made along the anterior knee midline dissection was carried out through skin and subcutaneous tissues. The skin and subcutaneous tissues were carefully elevated. Incision was made along the medial aspect of the patella dissection was then carried down to the proximal tibia. Combination of an awl and a pin were used to define the central aspect of the tibia. Small amount of reaming was performed on the proximal tibia. Guide richard was then meticulously passed down across the fracture site. Fracture site was held in a reduced position and the canal was carefully reamed up to size 11 5 the nail was measured at 33 cm. I was very specific about the placement of the guide richard she had had a previous tibia fracture to there is abnormality in the distal tibia which pushed the guide richard some but I did get it into a satisfactory position and I was able to achieve good alignment of the fracture. Ten by 33 cm nail was carefully inserted. It was then meticulously distally interlocked we then very gently impacted the fracture and held the reduction. Proximal interlocking was then performed. Good alignment and fixation was achieved. The fracture was gently stressed it was noted to be stable. Marcaine was meticulously injected. The wounds were closed with combination of interrupted Vicryl and skin bettye. Patient was dressed sterilely. Was carefully wrapped with the Webril and bias cut stockinette. Complications none. Complications: none Post-operative Condition: stable Disposition: Acute Care Plan for aftercare: Partial weight-bearing on the right lower extremity okay to do ankle and knee range of motion exercises. Return to clinic in 10 days for suture removal. Outpatient physical therapy as needed.
--- NOTE | 2019-10-01 14:19 | SUR.PHASEI ---
fuentes hearing aids in place
--- NOTE | 2019-10-01 14:20 | SUR.PHASEI ---
Patient reported feeling like something was in the back of her throat, ice provided. Swallowing with mild difficulty per patient.
--- NOTE | 2019-10-01 14:28 | SUR.PHASEI ---
Report called to
--- NOTE | 2019-10-01 15:04 | SUR.PHASEI ---
Patient transferred to the floor. Report given to Delmi. VS stable. Dressing CDI. Hearing aids in place x2. IV saline locked.
[2019-10-01] MEDS: LACTATED RINGERS 1,000 ML 125 ML IV ×2 (15:56→23:42)
[2019-10-01] MEDS: ACETAMINOPHEN 325 MG TABLET 975 MG PO ×2 (15:58→21:34)
[2019-10-01] MEDS: ASPIRIN EC 81 MG TABLET PO (21:33)
[2019-10-01] MEDS: DOCUSATE 100 MG CAPSULE PO (21:34)
[2019-10-01] MEDS: TRAMADOL 50 MG TABLET PO (21:38)
[2019-10-02] VITALS (7 sets, daily range): BP systolic 112–163; BP diastolic 58–75; PULSE 70–97; RESP 15–18; TEMP 36.2–36.7; O2SAT 96–97
--- NOTE | 2019-10-02 00:18 | PC.NURSE ---
Addendum entered by Callum Frias R.N. 10/02/19 07:32: Neuros remained WNL all shift. Original Note: Pt reports normal sensation in R leg, able to wiggle toes. No c/o of pain at this time. Bulky dressing C/D/I - unable to assess pedal pulse due to dressing. Toes warm w/good cap refill
[2019-10-02] MEDS: CEFAZOLIN 2 GM/100 ML FROZ.PIGGY IV (03:58)
[2019-10-02] MEDS: ACETAMINOPHEN 325 MG TABLET 650 MG PO (03:59)
[2019-10-02] MEDS: ONDANSETRON 4 MG/2 ML INJ IV (04:43)
[2019-10-02] MEDS: TRAMADOL 50 MG TABLET PO (04:45)
[2019-10-02 06:34] LABS: Hematocrit 31.4 % (36-46); Hemoglobin 10.5 g/dL (12.0-16.0); Mean Corpuscular HGB Conc 33.4 % (30-36); Mean Corpuscular Hemoglobin 30.3 PG (26-34); Mean Corpuscular Volume 90.8 fL (80-100); Platelet Count 157 X10^3/uL (150-400); Red Blood Cell Count 3.46 X10^6/uL (4.0-5.2); White Blood Cell Count 10.1 X10^3/uL (4.5-11.0)
[2019-10-02] MEDS: ASPIRIN EC 81 MG TABLET PO ×2 (08:05→20:19)
[2019-10-02] MEDS: polyethylene glycoL 3350 17 GM POWD.PACK PO (08:05)
[2019-10-02] MEDS: DOCUSATE 100 MG CAPSULE PO ×2 (08:07→20:19)
[2019-10-02] MEDS: ACETAMINOPHEN 325 MG TABLET 975 MG PO ×2 (08:07→20:19)
[2019-10-02] MEDS: LOSARTAN 25 MG TABLET PO (08:08)
[2019-10-02] MEDS: CODEINE 30 MG TABLET PO ×3 (09:34→19:44)
--- NOTE | 2019-10-02 09:55 | PT.IIE ---
Current Diagnoses Unspecified physeal fracture of lower end of right tibia, initial encounter for closed fracture (09/30/19) Surgery Performed Operation Date: 10/01/19 10:45 Actual Procedures p Intramedullary Nailing Tibia(Right) - Swati Frias MD Physical Therapy Inpatient Evaluation/Re-Eval M1 PT/OT-IP Prior Functional Status Start: 10/02/19 13:20 Freq: NEEDED Status: Active Protocol: Document 10/02/19 09:55 AB (Rec: 10/02/19 13:35 AB [id number]) Medical Review Prior Functional Status Medical History Reviewed Yes Communication able to make needs known Mobility and Gait pt stated that she is independent with all mobilties and ambulation without AD Social History Household Members spouse Living Arrangements House Number of Floors (Floors) Two Floors Number of Stairs To Enter/Railing? pt stays on main level of the house has 2 platform steps to ente with B rails from the front of the house Home Environment High Toilet,Walk in Shower Home Equipment Shower Seat without Backrest, Hand Held Shower,Grab Bars In Shower M2 PT-IP Current Condition Start: 10/02/19 13:20 Freq: NEEDED Status: Active Protocol: Document 10/02/19 09:55 AB (Rec: 10/02/19 13:35 AB [email or web address]) Physical Therapy Current Condition Current Condition Evaluation Date 10/02/19 Treatment Diagnosis R tib/fib fx sp ORIF; difficulty in w walking Onset Date 09/30/19 Weight Bearing Status Weight Bearing Status Partial Weight Bearing Allowed Weight Bearing Amount (enter % 50# PWB RLE or #) (%) M3 PT-IP Subjective Start: 10/02/19 13:20 Freq: NEEDED Status: Active Protocol: Document 10/02/19 09:55 AB (Rec: 10/02/19 13:35 AB [id number]) Subjective Physical Therapy Visit Type Type Initial Evaluation Visit Start Time 09:55 Visit Stop Time 10:40 Total Visit Minutes 45 Notes received PWB RLE order from Dr Cammie Frias and also stated okay to do ankle and knee range of motion exercises. Talked to KIKO Ordaz for clarification and informed PT that pt is 50# PWB on RLE and okay to do AROM exercises on R knee and ankle Number of SEISMOGRAPH RECORDER Visits 0 Physical Therapy Visit Comments Patient Comments agreeable to do PT Therapy Pain Assessment Pain When Pain Assessed At Rest Pain Present Pain Present Pain Reported Location right leg Intensity 6 Scale Used Numeric (0 - 10) Pain Management Techniques Apply Cold,Distraction,Re- positioning,Timing of Activity with Medications M4 PT-IP Mobility and Gait Start: 10/02/19 13:20 Freq: NEEDED Status: Active Protocol: Document 10/02/19 09:55 AB (Rec: 10/02/19 13:35 AB [email or web address]) PT-Bed Mobility Assessment Supine to Sit Supine to Sit Standby Assistance Scooting Scooting to Edge of Bed Standby Assistance PT-Transfer Assessment Sit to and From Stand Sit to and from Stand Minimal Assistance,1 Person Assistance,Use of Upper Extremities Equipment Transfer Assistive Device Gait Belt,Large Based Quad Cane Orthotic/Prosthetic Devices or Brace: No Transfers Transfer Destination Chair Transfer Technique ambulated using FWW Transfer Ability Level of Assist Minimal Assistance,1 Person Assistance,Use of Upper Extremities Comments Mobility Comments pt educated on weigth bearing restriction. completed supine to sit SBA and was able to sit on EOB SBA. completed sit to stand min A and cues to maintain PWB on RLE. pt ambulated in room using FWW ~ 15 ft min A and cues. c/o pain on RLE and refused further ambulation. positioned on chair. informed pt regarding caregiver training and stated that she will call her spouse. caregiver training set up today at 2pm. call light and table positioned next to pt. ice pack provided. Gait Assessment Gait Gait Assistance Required: Minimum Assistance Distance (Feet) 15 Able to Maintain Weight Bearing Status Yes During Gait Assistive Devices Assistive Device Gait Belt,Front Wheeled Walker Orthotic/Prosthetic Devices or Brace: No Gait Deviations General Gait Pattern Antalgic,Decreased Stride Length,Decreased Feet Clearance Factors Limiting Gait Function Factors Limiting Gait Function Decreased Activity Tolerance, Decreased Strength,Limited Range of Motion,Pain,Poor Balance,Poor Safety Awareness PT-Balance Assessment Sitting Balance and Reactions Static Sitting Balance Ability Good Dynamic Sitting Balance Ability Good Standing Balance and Reactions Static Standing Balance Ability Fair Dynamic Standing Balance Ability Fair Device Used FWW M5 PT-IP Objective Assessments Start: 10/02/19 13:20 Freq: NEEDED Status: Active Protocol: Document 10/02/19 09:55 AB (Rec: 10/02/19 13:35 AB [email or web address]) Orientation Orientation/Cognition Level of Alertness Alert Orientation Name,Place,Situation Language Function Ability No Deficits Noted Safety Awareness Understands Safety Issues Memory Description No Deficits Noted Gross Range of Motion Lower Extremity ROM Assessment Right Impaired Impairments R ankle decrease DF only to neutral : pt has previous ankle surgery Strength Lower Extremity Strength Assessment Within Functional Limits Coordination Assessment Gross Coordination Gross Coordination WNL Sensation Assessment Sensation Gross Sensation WNL Muscle Tone Muscle Tone WNL Yes M6 PT-IP Treatment Start: 10/02/19 13:20 Freq: NEEDED Status: Active Protocol: Document 10/02/19 09:55 AB (Rec: 10/02/19 13:35 AB [email or web address]) Physical Therapy Treatment Education Education Provided Precautions,Weight Bearing Status,Safety M7 PT-IP Assessment and Plan Start: 10/02/19 13:20 Freq: NEEDED Status: Active Protocol: Document 10/02/19 09:55 AB (Rec: 10/02/19 13:35 AB [id number]) PT Summary Assessment and Plan Potential Rehabilitation Potential Good Status of Condition at Evaluation Stable Summary Impairments Pain,ROM,Strength,Balance, Coordination,Bed Mobility, Transfers,Gait,Activity Tolerance Assessment Summary pt requiring min A with mobility. caregiver training set up at 2pm today. pt plans to go home and spouse to assist her. will also request for FWW order for home use. stair climbing training will also be conducted prior to d/c . pt will require HHPT Goals Bed Mobility Goal Independent Transfer Goal Independent,Front Wheeled Walker Gait Goal Independent,Front Wheel Walker Gait Distance 75 Other Goals up/down 2 platform steps using FWW SBA Days to Meet Goals 3 Frequency of Treatment Frequency Of Treatment Twice a Day Treatment Plan Physical Therapy Treatment Plan Bed Mobility Training,Transfer Training,Gait Training, Therapeutic Exercise,Balance Retraining,Post Op Education, Discharge Planning,Hot or Cold Pack,Neuromuscular Re-ed, Coordination Retraining,Manual Therapy Other Recommendations and Next Treatment caregiver training, stair Focus climbing , ambulation Recommendations To Nursing Amount of Assist Needed 1 Person Assist Discharge Recommendations PT Discharge Recommendations Home with Assistance,Home Health Equipment Needed for Home Before FWW Discharge Transportation Needs at Discharge Private Vehicle
--- NOTE | 2019-10-02 10:20 | PM.PNPO.1 ---
Subjective Subjective Date Patient Seen: 10/02/19 Time Patient Seen: 10:21 Interval history: POD #1 s/p Intramedullary rodding right distal tibia fracture with proximal and distal interlock with Dr. Frias. Patient's biggest complaint is knee pain. She has a sensitivity to pain medications and is having difficulty finding adequate pain control after surgery. She is working with Physical therapy this morning. Exam Vital Signs (past 8 hours): - 10/02/19 04:41 10/02/19 07:54 10/02/19 08:08 Temperature 97.7 F 97.1 F L Pulse Rate 77 72 Respiratory Rate 18 15 Blood Pressure 163/75 H 124/64 124/64 Pulse Oximetry 96 96 Oxygen Delivery Method Room Air Oxygen Flow Rate 0 Narrative Exam Narrative: Patient sitting on the edge of bed with therapist. She is alert oriented x3. She complaints of knee pain today. Calves are soft, compressible, and nontender bilaterally. Sensation intact light touch throughout bilateral lower extremities. She is able to wiggle her toes and dorsiflex and plantar flex her ankles. Toes are well perfused bilaterally. Right extremity covered in dressing that is CDI. Objective Labs Result Diagrams: 10/02/19 06:15 10/01/19 05:10 Labs: Laboratory Results - last 24 hr 10/02/19 06:15 WBC 10.1 RBC 3.46 L Hgb 10.5 L Hct 31.4 L MCV 90.8 MCH 30.3 MCHC 33.4 RDW 14.0 Plt Count 157 Assessment & Plan Post-op Postoperative Procedures: Procedures Operation Date: 10/01/19 10:45 Actual Procedures Side Surgeon p Intramedullary Nailing Tibia Right Swati Carolyn Frias MD Instructed the patient she has an incision over her knee, and where richard was inserted, and that is why she has so much right knee pain. Nursing is going to continue working on pain control with codeine and tramadol. Recommending max dose per day of Tramadol. She has good family support at home and is coming in at 2 today to work with PT. She is to be partial weight bearing 50 lb on the right. Full active range of motion of right knee and ankle. Per Dr. Frias if dressing is too much for patient while at home she can transition to Shaquille wraps 4 & 6 provided by nursing at the hospital at time of discharge. The sutures in place until appointment. Quality VTE Deep Vein Thrombosis/Pulmonary Embolism Present on Admission: No
[2019-10-02] MEDS: TRAMADOL 50 MG TABLET 100 MG PO ×2 (11:26→20:19)
--- NOTE | 2019-10-02 12:47 | CM.IDA ---
Initial DCP Assessment Note Patient is a 79 yo female, resident of [place]. patient is POD #1 s/p Intramedullary rodding right distal tibia fracture with proximal and distal interlock with Dr. Frias PCP: Daniel Christina Payer: KIMBERLEE/KISHORE Met w/patient at morning bedside rounds, Dr Lou is the attending physician today. 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 Patient has planedd to return home w/assist from her and two adult dtrs and her grandson. Patient does not expect to have any DC needs from this RN CCU. Therapy team agrees, likely home w/family to assist. Will follow in case any DC needs or concerns arise. ZACHARY Rae
--- NOTE | 2019-10-02 13:03 | P.PN_ITS ---
Subjective Subjective Date Patient Seen: 10/02/19 Interval history: Alisia Mcguire is a 79-year-old female with no significant past medical history who presented after a traumatic injury with a right tibia fibula fracture. The patient is resting in bed and appears slightly uncomfortable. She reports pain at left knee that is poorly controlled with acetaminophen and tramadol. However, she is apprehensive about taking narcotics as these usually cause her significant GI upset with nausea and vomiting. Plan to increase dose of tramadol from 50-100 mg 4 times daily, added gabapentin 100 mg 3 times daily for nerve pain, codeine 30 mg every 4 hours as needed for moderate to severe pain and will assess whether or not she tolerates this medication. She has no other complaints and denies headache, chest pain, shortness of breath, abdominal pain, nausea, vomiting, fever, chills, dysuria, diarrhea or constipation. She is voiding without difficulty. She has not had a bowel movement since admission and a bowel regimen has been implemented. She is up ambulating with assistance. Exam Vital Signs (past 8 hours): - 10/02/19 07:54 10/02/19 08:08 Temperature 97.1 F L Pulse Rate 72 Respiratory Rate 15 Blood Pressure 124/64 124/64 Pulse Oximetry 96 Oxygen Delivery Method Room Air Oxygen Flow Rate 0 Narrative Exam Narrative: General: Older female sitting in bed and in no acute distress, appears younger than stated age, well-developed, well-nourished, in mild discomfort with right knee pain, appropriately interactive. HEENT: Normocephalic, atraumatic. External ears without defect. Pupils equal, round, and reactive to light. Anicteric sclerae, moist conjunctivae, and no lid lag. Oropharynx free of erythema and cobble stoning with moist mucosa. Neck: Supple with full range of motion. No lymphadenopathy or thyromegaly. Cardiovascular: Regular rate and rhythm without murmurs, rubs, or gallops appreciated. Pulmonary: Clear to auscultation bilaterally without crackles, wheezes, or rhonchi. Normal respiratory effort with no use of accessory muscles. Abdomen: Soft, bowel sounds present, nontender, nondistended. No hepatosplenomegaly or masses appreciated. Extremities: No clubbing, cyanosis, or edema. Right leg with dressing in place C/D/I and intact movement of toes. Left lower extremity with mild bruising medially at distal 3rd of leg. Skin: Normal temperature, turgor, and texture; no rash, ulcers, or subcutaneous nodules appreciated. Neurological: Cranial nerves grossly intact. Psychiatric: Normal mood and affect. Alert and oriented to person, place, and time. Objective Labs Result Diagrams: 10/02/19 06:15 10/01/19 05:10 Labs: Laboratory Results - last 24 hr 10/02/19 06:15 WBC 10.1 RBC 3.46 L Hgb 10.5 L Hct 31.4 L MCV 90.8 MCH 30.3 MCHC 33.4 RDW 14.0 Plt Count 157 Assessment & Plan Assessment & Plan narrative: Alisia Mcguire is a 79-year-old female with no significant past medical history who presented after a traumatic injury with a right tibia fibula fracture. 1. Acute right tibia fibula fracture, secondary to traumatic injury, present on admission. Active. 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 -Right leg x-ray demonstrated diagonal distal tibial and fibular diaphyseal fractures, mildly displaced. -Continue pain control with acetaminophen 650 mg every 6 hours as needed for mild pain, tramadol 50-100 mg 4 times daily as needed for mild pain, gabapentin 100 mg 3 times daily for nerve related pain, codeine 30 mg every 4 hours as needed for [id number] pain, and hydrocodone 5-325 mg every 4 hours as need ed for severe breakthrough pain. -Consulted orthopedic surgery, Dr. Frias who performed surgical repair of right tib-fib fracture today. Continue postoperative management, pain control and DVT prophylaxis per Orthopedic surgery. 2. Probable untreated hypertension, present on admission. Stable. -Patient may possibly have untreated hypertension after review of medical records versus pain response. -Continue to monitor and treat pain. -Patient persistently hypertensive with SBP average 160 to 170s despite pain control. Started losartan 25 mg daily. -Continue to monitor blood pressure closely. Code status: Full code, designates spouse as surrogate decision maker VTE prophylaxis: ASA Disposition: Patient likely discharge home with home health tomorrow if mobilizing well and pain adequately controlled. Quality VTE Deep Vein Thrombosis/Pulmonary Embolism Present on Admission: No
--- NOTE | 2019-10-02 14:19 | PT.IPTN ---
Current Diagnoses Unspecified physeal fracture of lower end of right tibia, initial encounter for closed fracture (09/30/19) Surgery Performed Operation Date: 10/01/19 10:45 Actual Procedures p Intramedullary Nailing Tibia(Right) - Swati Frias MD Physical Therapy Treatment Note M2 PT-IP Current Condition Start: 10/02/19 13:20 Freq: NEEDED Status: Active Protocol: Document 10/02/19 09:55 AB (Rec: 10/02/19 13:35 AB [id number]) Physical Therapy Current Condition Current Condition Evaluation Date 10/02/19 Treatment Diagnosis R tib/fib fx sp ORIF; difficulty in w walking Onset Date 09/30/19 Weight Bearing Status Weight Bearing Status Partial Weight Bearing Allowed Weight Bearing Amount (enter % 50# PWB RLE or #) (%) M3 PT-IP Subjective Start: 10/02/19 13:20 Freq: NEEDED Status: Active Protocol: Document 10/02/19 14:19 AB (Rec: 10/02/19 17:29 AB [id number]) Subjective Physical Therapy Visit Type Type Treatment Note Visit Start Time 14:19 Visit Stop Time 15:09 Total Visit Minutes 50 Number of SOCIAL MEDIA EXECUTIVE Visits 0 Physical Therapy Visit Comments Patient Comments pt is agreeable to do PT but stated that she usually has less energy in the afternoon Therapy Pain Assessment Pain When Pain Assessed At Rest Pain Present Pain Present Pain Reported Location right leg Intensity 5 Scale Used Numeric (0 - 10) Pain Management Techniques Apply Cold,Modification of Treatment,Timing of Activity with Medications M4 PT-IP Mobility and Gait Start: 10/02/19 13:20 Freq: NEEDED Status: Active Protocol: Document 10/02/19 14:19 AB (Rec: 10/02/19 17:29 AB [id number]) PT-Bed Mobility Assessment Supine to Sit Supine to Sit Minimal Assistance,1 Person Assistance Sit to Supine Sit to Supine Moderate Assistance,1 Person Assistance PT-Transfer Assessment Sit to and From Stand Sit to and from Stand Minimal Assistance,1 Person Assistance,Use of Upper Extremities Equipment Transfer Assistive Device Gait Belt,Front Wheeled Walker Orthotic/Prosthetic Devices or Brace: No Transfers Transfer Destination Toilet Transfer Ability Level of Assist Contact Guard Assistance, Minimal Assistance,1 Person Assistance,Use of Upper Extremities Comments Mobility Comments spouse present for caregiver training. pt completed supine to sit min A for RLE. spouse was able to assist pt. educated spouse on how to use safety belt and how to assist pt. spouse assisted pt with sit to stand and ambulation in room. pt rested. pt requested to use the toilet and spouse assisted pt . informed spouse that he has to assist pt with brief management and agreed. pt ambulated out of the toilet using FWW min A and sat on EOB . pt c/o that she is tired and might not be able to do stair climbing but agreed to do up/down step stool in room. educated pt on how to go up/ down step and maintaining 50# weight bearing restriction. PT instructed and demonstrated . pt completed up/down one step using FWW, stepping backwards on to step stool putting most of her body weight through her arms on FWW and completed with CGA min A. pt step back down forward CGA to min A. pt requested to go back to bed and stated that she is tired. pt and spouse agreed to do more training and do stair climbing training tomorrow on a platform step instead of a step stool. agreed on ~ 1000am tomorrow. pt completed sit to supine with spouse assisting pt. positioned pt in bed. call light and table within reach. Gait Assessment Gait Gait Assistance Required: Contact Guard Assist,Minimum Assistance Distance (Feet) 20 Able to Maintain Weight Bearing Status Yes During Gait Assistive Devices Assistive Device Gait Belt,Front Wheeled Walker Gait Deviations General Gait Pattern Decreased Stride Length, Decreased Feet Clearance Factors Limiting Gait Function Factors Limiting Gait Function Decreased Activity Tolerance, Decreased Strength,Limited Range of Motion,Pain,Poor Balance,Poor Safety Awareness Comments Gait Comments pls refer to mobility section for details. Stair Climbing Assessment Evaluation Level of Assist On Stairs Contact Guard Assistance, Minimal Assistance,1 Person Assistance Devices Stair Climbing Assistive Devices Front Wheel Walker Technique/Endurance Stair Climbing Direction Ascend and Descend Stair Climbing Technique Step to Step Number of Steps Climbed 1 Stair Climbing Set # Repetitions (reps) 1 Comments Stair Climbing Comments completed up/down step stool using FWW for support. pt completed stepping backwards on step stool to be able to use UE for weight bearing and be able to maintain 50# weight bearing on RLE. completed with PT assisting but unable to complete again with spouse assisting due to c/o fatigue and requested to rest. pt agreed to do more caregiver training tomorrow. M5 PT-IP Objective Assessments Start: 10/02/19 13:20 Freq: NEEDED Status: Active Protocol: Document 10/02/19 09:55 AB (Rec: 10/02/19 13:35 AB [id number]) Orientation Orientation/Cognition Level of Alertness Alert Orientation Name,Place,Situation Language Function Ability No Deficits Noted Safety Awareness Understands Safety Issues Memory Description No Deficits Noted Gross Range of Motion Lower Extremity ROM Assessment Right Impaired Impairments R ankle decrease DF only to neutral : pt has previous ankle surgery Strength Lower Extremity Strength Assessment Within Functional Limits Coordination Assessment Gross Coordination Gross Coordination WNL Sensation Assessment Sensation Gross Sensation WNL Muscle Tone Muscle Tone WNL Yes M6 PT-IP Treatment Start: 10/02/19 13:20 Freq: NEEDED Status: Active Protocol: Document 10/02/19 14:19 AB (Rec: 10/02/19 17:29 AB [id number]) Physical Therapy Treatment Education Education Provided Weight Bearing Status,Safety M7 PT-IP Assessment and Plan Start: 10/02/19 13:20 Freq: NEEDED Status: Active Protocol: Document 10/02/19 14:19 AB (Rec: 10/02/19 17:29 AB [id number]) PT Summary Assessment and Plan Potential Rehabilitation Potential Good Summary Impairments Pain,ROM,Strength,Balance, Coordination,Sensation, Cognition,Bed Mobility, Transfers,Gait,Activity Tolerance Progress Towards Goals Slow Progress due to Pain,Slow Progress due to Activity Tolerance Assessment Summary caregiver training conducted but further training is needed . set up caregiver training tomorrow 10/03/19 at ~ 1000am. pt also informed PT that her spouse was able to get a FWW for her to use. educated on how to adjust for according to pt's height. also informed spouse to obtain a w/c and agreed. DME list provided and instructed. will continue to assess progress. pt will need homehealth PT on d/c. Goals Bed Mobility Goal Independent Transfer Goal Independent,Front Wheeled Walker Gait Goal Independent,Front Wheel Walker Gait Distance 75 Other Goals up/down 2 platform steps using FWW SBA Days to Meet Goals 3 Frequency of Treatment Frequency Of Treatment Twice a Day Treatment Plan Physical Therapy Treatment Plan Bed Mobility Training,Transfer Training,Gait Training, Therapeutic Exercise,Balance Retraining,Post Op Education, Discharge Planning,Hot or Cold Pack,Neuromuscular Re-ed, Coordination Retraining,Manual Therapy Other Recommendations and Next Treatment caregiver training, stair Focus climbing , ambulation Recommendations To Nursing Amount of Assist Needed 1 Person Assist Discharge Recommendations PT Discharge Recommendations Home with Assistance,Home Health Equipment Needed for Home Before FWW Discharge Transportation Needs at Discharge Private Vehicle
[2019-10-02] MEDS: GABAPENTIN 100 MG CAPSULE PO ×2 (14:44→20:19)
--- NOTE | 2019-10-02 21:30 | PC.NURSE ---
AxOx3, can make needs known. VSS, saturating WNL on RA, no c/o chest pain or SOB. C/o nausea with certain meds, no c/o on shift. IV saline locked per orders, flushes appropriately. C/o pain 6-7/10, better relief with tramadol vs codeine. 1PA with FWW OOB, 50# weight bearing on right lower extremity. Unable to palpate pulse, cap refill brisk <2secs, CMS intact. Hx of falls, high fall risk, bed alarm on and functioning. Call light in reach.
[2019-10-03 01:19] VITALS: BP 142/78; PULSE 80; RESP 16; TEMP 37.1; O2SAT 97
[2019-10-03] MEDS: CODEINE 30 MG TABLET PO (01:23)
--- NOTE | 2019-10-03 01:52 | PC.NURSE ---
Addendum entered by Kate Cortes R.N. 10/03/19 06:10: Has slept most of shift. Denies any pain this morning. Original Note: Patient is alert and oriented. Breath sounds CTA with RA sat of 97%. HRR; BP elevated at 142/78. Denies nausea. BT present and is passing flatus but has not had a BM since 09/28. Is receiving scheduled Colace and Miralax; provided with prune juice and ordered bran for breakfast. Voiding without dysuria, frequency or urgency. Is able to move self in bed and is up to bathroom with walker and 1 assist; 50 pound weight bearing on right LE. Unable to palpate right LE pulses due to dressing on leg but toes are warm, has good sensation and capillary refill. Initially upon waking states I don't know what they gave me but I don't have pain anymore. But, after getting up to bathroom states pain is now 3/10 and so was medicated with Codeine . Wearing calf SCD on left LE. Fall risk score is high and bed alarm is activated.
[2019-10-03 07:05] VITALS: BP 136/73; PULSE 76; RESP 16; TEMP 36.4; O2SAT 95
[2019-10-03] MEDS: polyethylene glycoL 3350 17 GM POWD.PACK PO (08:14)
[2019-10-03] MEDS: DOCUSATE 100 MG CAPSULE PO (08:14)
[2019-10-03] MEDS: TRAMADOL 50 MG TABLET 100 MG PO (08:15)
[2019-10-03] MEDS: GABAPENTIN 100 MG CAPSULE PO (08:16)
[2019-10-03] MEDS: ASPIRIN EC 81 MG TABLET PO (08:16)
[2019-10-03] MEDS: LOSARTAN 25 MG TABLET PO (08:16)
[2019-10-03] MEDS: ACETAMINOPHEN 325 MG TABLET 975 MG PO (08:16)
[2019-10-03] MEDS: SODIUM CHLORIDE 0.9% FLUSH 10 ML IV (08:17)
--- NOTE | 2019-10-03 08:17 | PM.DS.1 ---
History of Present Illness History of Present Illness Chief complaint: right leg pain from an injury Discharge Providers Provider Date of admission: 09/30/19 19:54 Discharge Date: 10/03/19 Primary care physician: Daniel Christina MD Consults: 10/01/19 15:13 Consult to Discharge Planning Routine Comment: Consult to Physical Therapy Evaluate & Treat Comment: Physician Instructions: Evaluate and Treat Consult to Respiratory Therapy Evaluate & Treat Comment: Physician Instructions: Evaluate and treat 10/02/19 13:48 Consult to Physical Therapy Evaluate & Treat Comment: Physician Instructions: FWW for home use Discharge provider: Anastacio Barrow MD Summary Hospital Course Discharge Diagnosis: tibia fracture Hospital Course: 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 Patient was seen in the emergency and was admitted to the hospital. Patient underwent a intramedullary fixation of her right tibia fracture. Patient's hospital course has been uneventful. Status at Discharge Cognitive/behavioral status at discharge: oriented Functional status at discharge: uses cane/walker Overall status at discharge: patient is progressing back to baseline Time Spent with Patient Time spent: Less than 30 minutes Exam Vital Signs (past 8 hours): - 10/03/19 01:19 Temperature 98.8 F Pulse Rate 80 Respiratory Rate 16 Blood Pressure 142/78 H Pulse Oximetry 97 Oxygen Delivery Method Room Air Oxygen Flow Rate 0 Narrative Exam Narrative: Patient's dressing is clean and dry. She has positive dorsiflexion plantar flexion of her toes and ankle. 5/5 strength in dorsiflexion and plantar flexion. 5/5 strength in extensor hallucis longus. Nontender to palpation to the posterior aspect of her calf. Objective Labs Result Diagrams: 10/02/19 06:15 10/01/19 05:10 Discharge Assessment & Plan Assessment and Plan Assessment: Patient is status post intramedullary fixation of a tibia shaft fracture Discharge Plan Discharge Plan Patient Disposition: Home Discharge orders & Medications Prescriptions: No Action No Known Home Medications RF: 0 Follow up/Referrals: Daniel Christina MD [Primary Care Provider] - Diet/Activity/Treatments Diet: Diet as Tolerated Activity: walk daily, partial weight (50 lbs) right leg, full weight on left leg Cold/Heat Therapy: ice multiple times a day Other treatments: follow up in 10 days or so [phone] Skin/Wound/Dressing Care Report to your healthcare provider any signs of infection, such as:: chills, fever, night sweats, increased pain, unusual drainage and unusual redness Dressing: ok to change as needed or leave dressing on Visit Report/Discharge Packet Instructions: DI for Prescription Opioid Use Stand Alone Forms: Surgery Discharge Discharge Data Primary Care Provider: Daniel Christina VTE Deep Vein Thrombosis/Pulmonary Embolism Present on Admission: No
[2019-10-03 08:20] VITALS: O2SAT 95
--- NOTE | 2019-10-03 10:33 | P.DS_ITS ---
History of Present Illness History of Present Illness Date Patient Seen: 10/03/19 Time Patient Seen: 10:33 Chief complaint: right leg pain from an injury Narrative: As per Dr. 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 Patient suffered a tib-fib fracture. She was seen and evaluated in the emergency room. It she is admitted to the hospital at this time for definitive surgical repair. The patient is a conti. She has had multiple injuries. She has had a right ankle crush injury. She has had injury to the left ankle. And also a torn thumb. She has no significant past medical history. She was here once before for chest pain which was unremarkable. Patient is lying in bed at this time and has no specific complaints of pain. She denies any shortness of breath chest pain nausea vomiting diarrhea difficulty with urination or other symptoms. Discharge Providers Provider Date of admission: 09/30/19 19:54 Discharge Date: 10/03/19 Primary care physician: Daniel Christina MD Consults: 10/01/19 15:13 Consult to Discharge Planning Routine Comment: Consult to Physical Therapy Evaluate & Treat Comment: Physician Instructions: Evaluate and Treat Consult to Respiratory Therapy Evaluate & Treat Comment: Physician Instructions: Evaluate and treat 10/02/19 13:48 Consult to Physical Therapy Evaluate & Treat Comment: Physician Instructions: FWW for home use Discharge provider: Mc Lafleur DO Summary Hospital Course Discharge Diagnosis: Please see below: Hospital Course: Alisia Mcguire is a 79-year-old female with no significant past medical history who presented after a traumatic injury with a right tibia fibula fracture. She was repaired by orthopedic surgery, did well with physical therapy and was discharged home once pain control was satisfactory. 1. Acute right tibia fibula fracture, secondary to traumatic injury, present on admission. Active. 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 -Right leg x-ray demonstrated diagonal distal tibial and fibular diaphyseal fractures, mildly displaced. -Discharge home with tylenol, codeine 15 mg q6 hr prn, and tramadol 100 mg QID. -Consulted orthopedic surgery, Dr. Frias who performed surgical repair of right tib-fib fracture. Patient will follow up with orthopedics clinic as an outpatient. Weight bearing restrictions per orthopedics. 2. Probable untreated hypertension, present on admission. Stable. -Patient may possibly have untreated hypertension after review of medical records versus pain response. -Continue to monitor and treat pain. Patient was given Losartan 25 mg x1. Follow up blood pressures with PMD as an outpatient and initiate as necessary once pain from fracture has improved. Dispo: discharged home. Exam Vital Signs (past 8 hours): - 10/03/19 07:05 10/03/19 08:20 Temperature 97.6 F Pulse Rate 76 Respiratory Rate 16 Blood Pressure 136/73 Pulse Oximetry 95 95 Oxygen Delivery Method Room Air Oxygen Flow Rate 0 Narrative Exam Narrative: General: Older female sitting in bed and in no acute distress, appears younger than stated age, well-developed, well-nourished, in mild di scomfort with right knee pain, appropriately interactive. HEENT: Normocephalic, atraumatic. External ears without defect. Pupils equal, round, and reactive to light. Anicteric sclerae, moist conjunctivae, and no lid lag. Oropharynx free of erythema and cobble stoning with moist mucosa. Neck: Supple with full range of motion. No lymphadenopathy or thyromegaly. Cardiovascular: Regular rate and rhythm without murmurs, rubs, or gallops appreciated. Pulmonary: Clear to auscultation bilaterally without crackles, wheezes, or rhonchi. Normal respiratory effort with no use of accessory muscles. Abdomen: Soft, bowel sounds present, nontender, nondistended. No hepatosplenomegaly or masses appreciated. Extremities: No clubbing, cyanosis, or edema. Right leg with dressing in place C/D/I and intact movement of toes. Left lower extremity with mild bruising medially at distal 3rd of leg. Skin: Normal temperature, turgor, and texture; no rash, ulcers, or subcutaneous nodules appreciated. Neurological: Cranial nerves grossly intact. Psychiatric: Normal mood and affect. Alert and oriented to person, place, and time. Objective Labs Result Diagrams: 10/02/19 06:15 10/01/19 05:10 Discharge Assessment & Plan Assessment and Plan Assessment: Patient is status post intramedullary fixation of a tibia shaft fracture Discharge Plan Discharge Plan Patient Disposition: Home Discharge comment: You were admitted to the hospital after an injury that resulted in fractures to your leg. You did well after surgery. You were prescr ibed pain medications. Please follow up with orthopedics next week. Discharge orders & Medications Prescriptions: New aspirin 81 mg Tablet,Delayed Release (Dr/Ec) 81 mg PO BID Qty: 60 RF: 0 tramadol 50 mg Tablet 100 mg PO QID PRN (Reason: Pain, Moderate (4-6)) Qty: 60 RF: 0 docusate sodium [DOK] 100 mg Capsule 100 mg PO BID Qty: 20 RF: 0 codeine sulfate 15 mg tablet 15 mg PO Q6H PRN (Reason: pain) 7 Days Qty: 20 RF: 0 Follow up/Referrals: Daniel Christina MD [Primary Care Provider] - Swati Frias MD [Physician] - (Call Dr. Frias office on FridayOctober 03 to make a post operative follow up appointment for in 10 days for suture removal) Diet/Activity/Treatments Diet: Diet as Tolerated Activity: walk daily, partial weight (50 lbs) right leg, full weight on left leg Cold/Heat Therapy: ice multiple times a day Other treatments: follow up in 10 days or so [phone] Skin/Wound/Dressing Care Report to your healthcare provider any signs of infection, such as:: chills, fe florentino, night sweats, increased pain, unusual drainage and unusual redness Dressing: ok to change as needed or leave dressing on Visit Report/Discharge Packet Instructions: Fracture Reduction -- Open, DI for Shinbone Fracture, How to Prevent Falls, DI for Postoperative Pain, DI for Prescription Opioid Use, Codeine, Tramadol Stand Alone Forms: Surgery Discharge Visit Report Forms: Patient Portal/API, Stroke Signs & Symptoms Discharge Data Primary Care Provider: Daniel Christina Discharges patient from system. Discharge Date/Time: 10/03/19 11:11 Quality VTE Deep Vein Thrombosis/Pulmonary Embolism Present on Admission: No
--- NOTE | 2019-10-03 10:51 | PC.NURSE ---
Pt is dressed and ready for discharge home with Spouse. Went over d/c instructions with Pt and Spouse-discussed d/c meds, time of last dose, reviewed stroke education, WB status, encouraged fluid intake to prevent constipation, and follow up. Pt denies further questions and was taken out via w/c by [employer] with Spouse and all belongings.
--- NOTE | 2019-10-03 10:59 | CM.DPC ---
DCP continued: EMR Reviewed: Narendra/RN met with patient at the bedside during AM rounds. patient is being D/C today home with family support. PT asked prior to rounds if patient could go home with HH services. Narendra/RN asked patient about HH services and she stated she has enough family at home and wont need HH services. Patient also asked if it was okay that she not do stair training today since she has two family members that can lift her over the step to get into the home. CM/Rn explained that caregiver training and stair training is really a tool utilized to help her when she goes home. both of these PT services help the patient learn how to maneuver with her injury to no hurt herself and other family member. patient stated understanding and will participate with PT today prior to D/C home. Savannah Frias RN
--- NOTE | 2019-10-03 11:34 | PT.IIE ---
Current Diagnoses Unspecified physeal fracture of lower end of right tibia, initial encounter for closed fracture (09/30/19) Surgery Performed Operation Date: 10/01/19 10:45 Actual Procedures p Intramedullary Nailing Tibia(Right) - Swati Frias MD Physical Therapy Inpatient Evaluation/Re-Eval M1 PT/OT-IP Prior Functional Status Start: 10/02/19 13:20 Freq: NEEDED Status: Active Protocol: Document 10/02/19 09:55 AB (Rec: 10/02/19 13:35 AB [id number]) Medical Review Prior Functional Status Medical History Reviewed Yes Communication able to make needs known Mobility and Gait pt stated that she is independent with all mobilties and ambulation without AD Social History Household Members spouse Living Arrangements House Number of Floors (Floors) Two Floors Number of Stairs To Enter/Railing? pt stays on main level of the house has 2 platform steps to ente with B rails from the front of the house Home Environment High Toilet,Walk in Shower Home Equipment Shower Seat without Backrest, Hand Held Shower,Grab Bars In Shower M2 PT-IP Current Condition Start: 10/02/19 13:20 Freq: NEEDED Status: Active Protocol: Document 10/02/19 09:55 AB (Rec: 10/02/19 13:35 AB [id number]) Physical Therapy Current Condition Current Condition Evaluation Date 10/02/19 Treatment Diagnosis R tib/fib fx sp ORIF; difficulty in w walking Onset Date 09/30/19 Weight Bearing Status Weight Bearing Status Partial Weight Bearing Allowed Weight Bearing Amount (enter % 50# PWB RLE or #) (%) M3 PT-IP Subjective Start: 10/02/19 13:20 Freq: NEEDED Status: Active Protocol: Document 10/03/19 11:18 AW (Rec: 10/03/19 11:34 AW [id number]) Subjective Physical Therapy Visit Type Type Treatment Note Visit Start Time 09:57 Visit Stop Time 10:12 Total Visit Minutes 15 Notes Pt's spouse, Daya, present for continued caregiver training Number of PIN DRAFTER Visits 0 Physical Therapy Visit Comments Patient Comments Pt is willing to participate with PT Patient Goals Going home today Therapy Pain Assessment Pain When Pain Assessed At Rest Pain Present Pain Present Denied Pain Location right leg Intensity 2 Scale Used Numeric (0 - 10) Pain Management Techniques Re-positioning,Timing of Activity with Medications M4 PT-IP Mobility and Gait Start: 10/02/19 13:20 Freq: NEEDED Status: Active Protocol: Document 10/03/19 11:18 AW (Rec: 10/03/19 11:34 AW [id number]) PT-Transfer Assessment Sit to and From Stand Sit to and from Stand Minimal Assistance,1 Person Assistance,Use of Upper Extremities Equipment Transfer Assistive Device Gait Belt,Front Wheeled Walker Orthotic/Prosthetic Devices or Brace: No Transfers Transfer Destination Chair Transfer Technique ambulated using FWW Transfer Ability Level of Assist Contact Guard Assistance,1 Person Assistance,Use of Upper Extremities Comments Mobility Comments Pt sitting up in chair upon PT arrival. Her spouse was present for continued caregiver training. He was able to don the gait belt independently and to assist the pt to stand with FWW. Pt had lateral LOB in immediate standing and her spouse was able to provide assist to arrest a fall. Pt's spouse provided consistent cues to slow down and for movement planning/sequencing. Spouse provided CGA as the pt ambulated 20' to the hallway for stair practice on platform step. He positioned himself appropriately and assisted the pt to ascend the step backward and to descend forward x 2. Pt safely returned to the chair with providing CGA and encouragement. Pt transferred back to the chair to prepare for discharge. She was left in the chair with call light and all needs in reach. Gait Assessment Gait Gait Assistance Required: Contact Guard Assist Distance (Feet) 20 Able to Maintain Weight Bearing Status Yes During Gait Assistive Devices Assistive Device Gait Belt,Front Wheeled Walker Gait Deviations General Gait Pattern Antalgic,Decreased Stride Length,Decreased Feet Clearance Factors Limiting Gait Function Factors Limiting Gait Function Decreased Activity Tolerance, Decreased Strength,Limited Range of Motion,Pain,Poor Balance Comments Gait Comments Pt ambulated 20 feet x 2 with FWW CGA. See mobility section for details. Stair Climbing Assessment Evaluation Level of Assist On Stairs Contact Guard Assistance, Minimal Assistance,1 Person Assistance Devices Stair Climbing Assistive Devices Front Wheel Walker Technique/Endurance Stair Climbing Direction Ascend and Descend Stair Climbing Technique Step to Step Number of Steps Climbed 1 Query Text: Stair Climbing Set # Repetitions (reps) 2 Comments Stair Climbing Comments See mobility section for details. Completed up/down platform step with CGA to min assist provided by pt's spouse . Both showed good attention to safety and awareness of 50# partial weightbearing RLE. M5 PT-IP Objective Assessments Start: 10/02/19 13:20 Freq: NEEDED Status: Active Protocol: Document 10/02/19 09:55 AB (Rec: 10/02/19 13:35 AB [id number]) Orientation Orientation/Cognition Level of Alertness Alert Orientation Name,Place,Situation Language Function Ability No Deficits Noted Safety Awareness Understands Safety Issues Memory Description No Deficits Noted Gross Range of Motion Lower Extremity ROM Assessment Right Impaired Impairments R ankle decrease DF only to neutral : pt has previous ankle surgery Strength Lower Extremity Strength Assessment Within Functional Limits Coordination Assessment Gross Coordination Gross Coordination WNL Sensation Assessment Sensation Gross Sensation WNL Muscle Tone Muscle Tone WNL Yes M6 PT-IP Treatment Start: 10/02/19 13:20 Freq: NEEDED Status: Active Protocol: Document 10/03/19 11:18 AW (Rec: 10/03/19 11:34 AW [id number]) Physical Therapy Treatment Education Education Provided Weight Bearing Status,Safety M7 PT-IP Assessment and Plan Start: 10/02/19 13:20 Freq: NEEDED Status: Active Protocol: Document 10/03/19 11:18 AW (Rec: 10/03/19 11:34 AW [id number]) PT Summary Assessment and Plan Potential Rehabilitation Potential Good Status of Condition at Evaluation Stable Summary Impairments Pain,ROM,Strength,Balance, Coordination,Sensation, Cognition,Bed Mobility, Transfers,Gait,Activity Tolerance Progress Towards Goals Progressing Toward Goals,Safe For Discharge Assessment Summary Caregiver training continued this AM with pt's spouse able to safely provide all necessary assist and cues. Pt' s spouse has procured a FWW, a wheelchair, and a shower chair for home. This PT answered questions related to car transfers and shower transfers to pt's satisfaction . Pt is safe for discharge with spouse assist. Goals Bed Mobility Goal Independent Transfer Goal Independent,Front Wheeled Walker Gait Goal Independent,Front Wheel Walker Gait Distance 75 Other Goals up/down 2 platform steps using FWW SBA Days to Meet Goals 2 Frequency of Treatment Frequency Of Treatment Discharge Recommendations To Nursing Amount of Assist Needed 1 Person Assist Discharge Recommendations PT Discharge Recommendations Home with Assistance,Home Health Equipment Needed for Home Before FWW procured by spouse Discharge Transportation Needs at Discharge Private Vehicle
== END 2019-10-03 11:11 | disposition home or self-care (01) | DRG 494 ==
LOC: ED 19:51 → AC 19:55
PROVIDERS: Internal Medicine; Admitting Provider Internal Medicine; Emergency Provider Emergency Medicine; PCP Internal Medicine; Referring Provider Internal Medicine; Visit Provider Orthopaedic Surgery
PROC: 0QSJ06Z Reposition Right Fibula with Intramedullary Internal Fixation Device, Open Approach (ICD-10-PCS; CPT 27759; principal; 2019-10-01 10:45)
DX: S89.101A Unspecified physeal fracture of lower end of right tibia, initial encounter for closed fracture (principal); S89.301A Unspecified physeal fracture of lower end of right fibula, initial encounter for closed fracture; M19.171 Post-traumatic osteoarthritis, right ankle and foot; W30.89XA Contact with other specified agricultural machinery, initial encounter; Y92.73 Farm field as the place of occurrence of the external cause; Z11.59 Encounter for screening for other viral diseases
CPT/HCPCS: 27752; 36415; 73590; 73600; 76000; 80048; 80053; 82550; 83735; 85025; 85027; 87635; 96361; 96374; 96375; 96376; 97161; 97530; 99152; 99153; 99284; 99285; J0690; J1170; J2405; J2765

== ENCOUNTER → 2020-03-24 10:00 | Outpatient (CLI) | payer MEDICARE, SELFPAY ==
[2019-09-30 20:06] VITALS: BMI 24.5
[2020-03-24 11:02] LABS: Cholesterol 263 mg/dL (140-199); Glucose 106 mg/dL (80-110); HDL Cholesterol 75 mg/dL (40-60); LDL Cholesterol Calculated 174 mg/dL (<100); Triglycerides 68 mg/dL (35-150)
== END ==
PROVIDERS: PCP Registered Nurse; Referring Provider Registered Nurse; Visit Provider Registered Nurse
DX: R07.9 Chest pain, unspecified (principal); Z83.3 Family history of diabetes mellitus; Z82.49 Family history of ischemic heart disease and other diseases of the circulatory system
CPT/HCPCS: 36415; 80061; 82947

== ENCOUNTER → 2020-04-07 10:57 | Outpatient (CLI) | payer MEDICARE, SELFPAY ==
[2019-09-30 20:06] VITALS: BMI 24.5
--- NOTE | 2020-04-07 10:59 | DI.MG.S_ITS ---
BILATERAL DIGITAL SCREENING MAMMOGRAM 3D/2D WITH CAD: 04/07/2020 CLINICAL: Routine screening. Family history of breast cancer. Comparison is made to exams dated: 07/07/2018 mammogram, 06/12/2017 mammogram, and 06/06/2016 mammogram - [facility]. There are scattered fibroglandular elements in both breasts. Current study was also evaluated with a Computer Aided Detection (CAD) system. No significant masses, calcifications, or other findings are seen in either breast. There has been no significant interval change. IMPRESSION: NEGATIVE There is no mammographic evidence of malignancy. A 1 year screening mammogram is recommended. This exam was interpreted at Station ID: [id number]. NOTE: For mammograms, a report in lay terms will be sent to the patient. Approximately 15% of breast malignancies will not be visualized mammographically. In the management of a palpable breast mass, a negative mammogram must not discourage biopsy of a clinically suspicious lesion. Electronically Signed By: Jay Jay Benjamin M.D., jr/juan ramon:04/07/2020 16:19:49 letter sent: Normal Exam ACR BI-RADS Category 1: Negative [id number]
== END ==
PROVIDERS: PCP Registered Nurse; Referring Provider Registered Nurse; Visit Provider Registered Nurse
DX: Z12.31 Encounter for screening mammogram for malignant neoplasm of breast (principal); Z80.3 Family history of malignant neoplasm of breast
CPT/HCPCS: 77063; 77067

== ENCOUNTER 2021-07-03 10:49 | Emergency (ER) | payer MEDICARE, SELFPAY ==
[2019-09-30 20:06] VITALS: BMI 24.5
[2021-07-03] VITALS (10 sets, daily range): BP systolic 144–186; BP diastolic 75–79; PULSE 70–83; RESP 20; TEMP 36.9; O2SAT 95–98
--- NOTE | 2021-07-03 11:02 | DI.RAD.S_ITS ---
PROCEDURE: XR CHEST 1V INDICATIONS: Flu like symptoms TECHNIQUE: One view of the chest was acquired. COMPARISON: [facility], CR, XR CHEST 1V, 11/23/2017, 16:35. FINDINGS: Surgical changes and devices: None. Lungs and pleura: Lungs are clear. No pleural effusions or pneumothorax. Mediastinum: Mediastinal contours appear normal. Heart size is normal. Bones and chest wall: No suspicious bony lesions. Overlying soft tissues appear unremarkable. IMPRESSION: No acute cardiopulmonary process demonstrated radiographically. Dictated by: Jay Jay Benjamin M.D. on 07/03/2021 at 11:57 Approved by: Jay Jay Benjamin M.D. on 07/03/2021 at 11:57
--- NOTE | 2021-07-03 11:05 | ED.URI ---
HPI - URI/Sore Throat General Chief Complaint: Upper Respiratory Symptoms Stated Complaint: Tightness in chest, trouble breathing Time Seen by Provider: 07/03/21 10:54 Source: patient Mode of arrival: Ambulatory Related Data Home Medications Medication Instructions Recorded Confirmed aspirin 81 mg chewable tablet 81 mg PO DAILY 03/21/20 04/03/20 Previous Rx's Medication Instructions Recorded atorvastatin 20 mg tablet 20 mg PO BEDTIME 30 Days #30 tab 03/25/20 Allergies Allergy/AdvReac Type Severity Reaction Status Date / Time No Known Drug Allergies Allergy Verified 03/21/20 09:19 Patient History Medical History (Updated 04/04/20 @ 10:11 by Kalyn Quick MD) Chicken pox Family history of heart disease Family history of type 2 diabetes mellitus Fracture of tibia and fibula Hearing loss (~2005) Measles Vision disorder Surgical History (Updated 04/02/20 @ 21:33 by Kenzie Packer) Anesthesia History of ankle surgery (~1993) History of appendectomy History of cataract removal with insertion of prosthetic lens History of surgery (~2019) History of thumb surgery (~2001) Family History (Updated 04/02/20 @ 21:34 by Kenzie Packer) Mother FH: heart attack Diabetes mellitus Father FH: heart attack Sister Breast cancer Brain cancer Social History (System 03/15/20 @ 11:00 by Adina Nichols) household members: spouse Smoking Status: Never smoker alcohol intake: never Smoking Status: Never smoker alcohol intake frequency: 0-2 drinks per day Substance Use Type: does not use Exam Initial Vital Signs Initial Vital Signs: Vital Signs Temperature 98.4 F 07/03/21 10:50 Pulse Rate 75 07/03/21 10:50 Respiratory Rate 20 07/03/21 10:50 Blood Pressure 178/77 H 07/03/21 10:50 Pulse Oximetry 98 07/03/21 10:50 Course Orders Ordered: ED Orders 07/03/21 11:02 XR chest 1V Stat COVID19 -Nasal RAPID/Pre-Proc Stat 07/03/21 11:03 EKG-12 Lead Stat Vital Signs Vital signs: Vital Signs - 8 hr 07/03/21 10:50 Temperature 98.4 F Pulse Rate 75 Respiratory Rate 20 Blood Pressure 178/77 H Pulse Oximetry 98 Discharge Plan Departure Prescriptions: No Action atorvastatin 20 mg tablet 20 mg PO BEDTIME 30 Days Qty: 30 2RF aspirin 81 mg tablet,chewable 81 mg PO DAILY 0RF Referrals: Chris Oropeza ARNP [Primary Care Provider] -
[2021-07-03 11:35] LABS: COVID19 -Nasal RAPID Negative (Negative)
--- NOTE | 2021-07-03 12:16 | ED.URI ---
HPI - URI/Sore Throat <Mary Arroyo PA-C - Last Filed: 07/03/21 13:28> General Chief Complaint: Upper Respiratory Symptoms Stated Complaint: Tightness in chest, trouble breathing Time Seen by Provider: 07/03/21 10:54 Source: patient Mode of arrival: Ambulatory History of Present Illness HPI Narrative: 80-year-old female with past medical history hyperlipidemia, hearing loss presents to the ED with 6 days of URI symptoms. Patient states her symptoms started with a scratchy throat, cough, runny nose. Patient denies fever, chills, chest pain, shortness of breath, nausea, vomiting, abdominal pain, dizziness, lightheadedness, syncope. Patient states that her cough is tiring her out and preventing her from being able to get a good night of sleep. Related Data Home Medications Medication Instructions Recorded Confirmed aspirin 81 mg chewable tablet 81 mg PO DAILY 03/21/20 04/03/20 Previous Rx's Medication Instructions Recorded atorvastatin 20 mg tablet 20 mg PO BEDTIME 30 Days #30 tab 03/25/20 benzonatate 200 mg capsule 200 mg PO TID PRN 15 Days #45 cap 07/03/21 Allergies Allergy/AdvReac Type Severity Reaction Status Date / Time No Known Drug Allergies Allergy Verified 03/21/20 09:19 Review of Systems <Mary Arroyo PA-C - Last Filed: 07/03/21 13:28> Review of Systems ROS Unobtainable: All systems reviewed & are unremarkable except as noted in HPI and below Constitutional Constitutional: Denies chills, Denies fatigue, Denies fever(s), Denies frequent falls, Reports lethargy and Denies weakness Eyes Eyes: Denies change in vision, Denies eye discharge, Denies irritation and Denies loss of vision ENT Ears, Nose, Mouth, and Throat: Denies change in voice, Denies dizziness, Reports nasal congestion, Denies neck pain, Denies sore throat and Denies throat swelling Cardiovascular Cardiovascular: Denies chest pain, Denies irregular heart rhythm, Denies lightheadedness, Denies palpitations, Denies dyspnea, Denies dyspnea on exertion and Denies orthopnea Comments: Chest tightness Respiratory Respiratory: Reports cough, Denies dyspnea, Denies dyspnea on exertion and Denies wheezing Gastrointestinal Gastrointestinal: Denies abdominal pain, Denies change in bowel habits, Denies diarrhea, Denies nausea and Denies vomiting Genitourinary Genitourinary: Denies hematuria, Denies flank pain, Denies urinary incontinence and Denies urinary urgency Musculoskeletal Musculoskeletal: Denies back pain, Denies muscle weakness, Denies neck pain, Denies numbness and Denies tingling Integumentary/Breasts Skin/Breast: Denies pruritus, Denies erythema, Denies rash and Denies wounds Neurologic Neurologic: Denies behavioral changes, Denies confusion, Denies dizziness, Denies frequent falls, Denies loss of vision, Denies numbness, Denies tingling and Denies weakness Psychiatric Psychiatric: Denies anxiety, Denies behavioral changes, Denies confusion, Denies depression, Denies homicidal ideation and Denies suicidal ideation Endocrine Endocrine: Denies fatigue, Denies flushing and Denies palpitations Hematologic/Lymphatic Hematologic/Lymphatic: Denies easy bruising Allergic/Immunologic Allergic/Immunologic: Denies urticaria, Denies throat swelling and Denies wheezing Patient History <Mary Arroyo PA-C - Last Filed: 07/03/21 13:28> Medical History Chicken pox Family history of heart disease Family history of type 2 diabetes mellitus Fracture of tibia and fibula Hearing loss (~2005) Measles Vision disorder Surgical History Anesthesia History of ankle surgery (~1993) History of appendectomy History of cataract removal with insertion of prosthetic lens History of surgery (~2019) History of thumb surgery (~2001) Family History Mother FH: heart attack Diabetes mellitus Father FH: heart attack Sister Breast cancer Brain cancer Social History household members: spouse Smoking Status: Never smoker alcohol intake: never Smoking Status: Never smoker alcohol intake frequency: 0-2 drinks per day Substance Use Type: does not use Exam <Mary Arroyo PA-C - Last Filed: 07/03/21 13:28> Initial Vital Signs Initial Vital Signs: Vital Signs Temperature 98.4 F 07/03/21 10:50 Pulse Rate 75 07/03/21 10:50 Respiratory Rate 20 07/03/21 10:50 Blood Pressure 178/77 H 07/03/21 10:50 Pulse Oximetry 98 07/03/21 10:50 Const General: cooperative, healthy appearing and comfortable HENMT Head: normal to inspection Ears: hearing grossly normal bilaterally (With hearing aids bilaterally), external ears normal and TM's normal bilaterally Nose: external nose normal Face and sinus: normal facial exam Throat: posterior oropharynx normal Eyes General: Yes appearance normal, both eyes and all related structures Neck Neck: normal visual inspection and full ROM Chest Chest: normal inspection of the chest Resp Effort & Inspection: normal respiratory effort Auscultation: clear to auscultation bilaterally Cardio Rate: regular rate Rhythm: regular rhythm GI Other: Abdomen is soft, nontender, nondistended General: No CVA tenderness Skin General: no rashes or lesions noted Neuro General: patient alert, patient awake and patient oriented x3 Psych Appearance: grossly normal Mental Status: mental status grossly normal <Jeremías Rodriguez DO - Last Filed: 07/06/21 00:41> Initial Vital Signs Initial Vital Signs: Vital Signs Temperature 98.4 F 07/03/21 10:50 Pulse Rate 75 07/03/21 10:50 Respiratory Rate 20 07/03/21 10:50 Blood Pressure 178/77 H 07/03/21 10:50 Pulse Oximetry 98 07/03/21 10:50 Course <Mary Arroyo PA-C - Last Filed: 07/03/21 13:28> Orders Ordered: ED Orders 07/03/21 11:00 COVID19 -Nasal RAPID/Pre-Proc Stat 07/03/21 11:02 XR chest 1V Stat 07/03/21 11:03 EKG-12 Lead Stat Vital Signs Vital signs: Vital Signs - 8 hr 07/03/21 10:50 07/03/21 10:58 07/03/21 11:00 Temperature 98.4 F Pulse Rate 75 83 83 Respiratory Rate 20 Blood Pressure 178/77 H 144/76 H Pulse Oximetry 98 98 97 07/03/21 11:01 07/03/21 11:30 07/03/21 11:31 Temperature Pulse Rate 77 75 74 Respiratory Rate Blood Pressure 178/77 H 177/77 H Pulse Oximetry 97 95 96 07/03/21 12:00 07/03/21 12:01 07/03/21 12:30 Temperature Pulse Rate 71 70 74 Respiratory Rate Blood Pressure 178/79 H Pulse Oximetry 97 97 96 07/03/21 12:31 Temperature Pulse Rate 74 Respiratory Rate Blood Pressure 186/75 H Pulse Oximetry 96 <Jeremías Rodriguez DO - Last Filed: 07/06/21 00:41> Orders Ordered: ED Orders 07/03/21 11:00 COVID19 -Nasal RAPID/Pre-Proc Stat 07/03/21 11:02 XR chest 1V Stat 07/03/21 11:03 EKG-12 Lead Stat Vital Signs Vital signs: Vital Signs - 8 hr 07/03/21 10:50 07/03/21 10:58 07/03/21 11:00 Temperature 98.4 F Pulse Rate 75 83 83 Respiratory Rate 20 Blood Pressure 178/77 H 144/76 H Pulse Oximetry 98 98 97 07/03/21 11:01 07/03/21 11:30 07/03/21 11:31 Temperature Pulse Rate 77 75 74 Respiratory Rate Blood Pressure 178/77 H 177/77 H Pulse Oximetry 97 95 96 07/03/21 12:00 07/03/21 12:01 07/03/21 12:30 Temperature Pulse Rate 71 70 74 Respiratory Rate Blood Pressure 178/79 H Pulse Oximetry 97 97 96 07/03/21 12:31 Temperature Pulse Rate 74 Respiratory Rate Blood Pressure 186/75 H Pulse Oximetry 96 MDM - URI/Sore Throat <Mary Arroyo PA-C - Last Filed: 07/03/21 13:28> Medical Records Attestation: I reviewed the patient's medical records. Lab Data Attestation: I reviewed the patient's lab results. Lab results narrative: COVID-19 negative Labs: Lab Results 07/03/21 Range/Units 11:00 SARS-CoV-2 (PCR) Negative (Negative) Imaging Data Chest x-ray: Radiologist's Impression: PROCEDURE:? XR CHEST 1V ? INDICATIONS:? Flu like symptoms ? TECHNIQUE:? One view of the chest was acquired.? ? COMPARISON:? [facility], CR, XR CHEST 1V, 11/23/2017, 16:35. ? FINDINGS:? ? Surgical changes and devices:? None.? ? Lungs and pleura:? Lungs are clear.? No pleural effusions or pneumothorax.? ? Mediastinum:? Mediastinal contours appear normal.? Heart size is normal.? ? Bones and chest wall:? No suspicious bony lesions.? Overlying soft tissues appear unremarkable.? ? IMPRESSION:? No acute cardiopulmonary process demonstrated radiographically. ? ? Dictated by: Jay Jay Benjamin M.D. on 07/03/2021 at 11:57 ? ? Approved by: Jay Jay Benjamin M.D. on 07/03/2021 at 11:57 ? ECG Data Interpretation: Normal sinus rhythm, no acute ST-T changes, no axis deviation. MDM Narrative Medical decision making narrative: 80-year-old female with past medical history hyperlipidemia, hearing loss presents to the ED with 6 days of URI symptoms. Concern for COVID-19 infection versus other viral syndrome versus pneumonia. Will obtain COVID-19 test, chest x-ray, EKG. EKG and chest x-ray without acute findings. Patient tested negative for COVID-19 today. Physical exam was reassuring for no bacterial infections. Prescribed Tessalon Perles for cough. Recommend taking Tylenol or ibuprofen for aches and pains. ED return precautions discussed with patient and patient's daughter. They verbalized understanding. <Jeremías Rodriguez, DO - Last Filed: 07/06/21 00:41> Lab Data Labs: Lab Results 07/03/21 Range/Units 11:00 SARS-CoV-2 (PCR) Negative (Negative) Discharge Plan Departure Patient Disposition: Home Clinical Impression: URI (upper respiratory infection) Instructions: DI for Viral Upper Respiratory Infection -- Adult Activity Restrictions/Additional Instructions: You were evaluated in the ED today for an upper respiratory infection. You tested negative for COVID-19. Your chest x-ray did not show a pneumonia. Your vitals were normal. Your symptoms are likely due to a viral upper respiratory infection. You have been prescribed Tessalon Perles for your cough. You may take Tylenol or ibuprofen for the aches and pains. If Tessalon Perles is not effective at relieving her cough, you may use any [id number] cough syrup with the ingredient dextromethorphan. Return to the ED if you experience fevers, chills, worsening symptoms, trouble breathing, worsening chest pain. Prescriptions: New benzonatate 200 mg capsule 200 mg PO TID PRN (Reason: cough) 15 Days Qty: 45 0RF No Action atorvastatin 20 mg tablet 20 mg PO BEDTIME 30 Days Qty: 30 2RF aspirin 81 mg tablet,chewable 81 mg PO DAILY 0RF Referrals: Chris Oropeza ARNP [Primary Care Provider] - <Jeremías Rodriguez DO - Last Filed: 07/06/21 00:41> Cosign ED Attending Radhaature Attestation: I was immediately available in the department for consultation. Documentation has been reviewed. I agree with assessment and plan.
== END 2021-07-03 13:00 | disposition home or self-care (01) ==
PROVIDERS: Emergency Medicine; Emergency Provider Student in an Organized Health Care Education/Training Program; PCP Registered Nurse
DX: J06.9 Acute upper respiratory infection, unspecified (principal); Z20.822 Contact with and (suspected) exposure to COVID-19
CPT/HCPCS: 71045; 87635; 93005; 99283; 99284; C9803

== ENCOUNTER 2022-04-25 11:59 | Emergency (ER) | payer MEDICARE, SELFPAY ==
[2019-09-30 20:06] VITALS: BMI 24.5
[2022-04-25] VITALS (21 sets, daily range): BP systolic 137–212; BP diastolic 79–140; PULSE 70–92; RESP 14–36; TEMP 35.8; O2SAT 96–99; BMI 24.0
--- NOTE | 2022-04-25 12:06 | DI.RAD.S_ITS ---
PROCEDURE: XR CHEST 1V INDICATIONS: chest pain TECHNIQUE: One view of the chest was acquired. COMPARISON: [facility], CR, XR CHEST 1V, 11/23/2017, 16:35. [facility], CR, XR CHEST 1V, 07/03/2021, 11:23. FINDINGS: Surgical changes and devices: None. Lungs and pleura: On this semiupright portable chest examination, no large pneumothorax or large pleural effusions are seen. No focal infiltrates are seen. Mediastinum: Mediastinal contours appear normal. Heart size is normal. Atherosclerotic calcification of the aortic arch is noted. Bones and chest wall: No suspicious bony lesions. Age-appropriate bony degenerative changes are seen. Mild dextroconvex scoliotic curvature is seen. Overlying soft tissues appear unremarkable. IMPRESSION: Portable chest within normal limits. Dictated by: Behzad Acevedo M.D. on 04/25/2022 at 11:49 Approved by: Behzad Acevedo M.D. on 04/25/2022 at 11:49
[2022-04-25 12:18] LABS: Add Manual Diff / Slide Review NO; Basophils Absolute Auto 100 /uL (0-100); Basophils Percent Auto 0.8 % (0-2); Eosinophils Absolute Auto 300 /uL (0-450); Eosinophils Percent Auto 3.6 % (2-4); Hematocrit 39.5 % (36-46); Hemoglobin 13.2 g/dL (12.0-16.0); Lymphocytes Absolute Auto 2100 /uL (1100-4500); Lymphocytes Percent Auto 27.6 % (25-40); Mean Corpuscular HGB Conc 33.4 % (30-36); Mean Corpuscular Hemoglobin 30.1 PG (26-34); Monocytes Absolute Auto 900 /uL (0-900); Monocytes Percent Auto 11.5 % (3-14); Neutrophils Absolute Auto 4300 /uL (1500-7000); Neutrophils Percent Auto 56.5 % (50-75); Platelet Count 196 X10^3/uL (150-400); Red Blood Cell Count 4.39 X10^6/uL (4.0-5.2); Red Cell Distribution Width 14.6 % (11.6-14.8); White Blood Cell Count 7.6 X10^3/uL (4.5-11.0)
--- NOTE | 2022-04-25 12:18 | ED.CHESTPAIN ---
HPI - Chest Pain <Jovanny Acevedo PA-C - Last Filed: 04/25/22 17:44> General Chief Complaint: Chest Pain Stated Complaint: high BP /fuzzy headed/chest pain LT arm Time Seen by Provider: 04/25/22 12:02 Source: patient Mode of arrival: Ambulatory Limitations: no limitations History of Present Illness HPI narrative: This is an 81-year-old female with a past medical history of hyperlipidemia presents emergency department due to an elevated blood pressure reading home with an episode of right-sided blurred vision as well as an episode of left-sided chest and shoulder pain. Patient not experiencing any symptoms currently and? feels pretty good?. Patient states that she does have a history of cataracts to the right eye but these symptoms were new and different. Patient denies any focal weakness, slurred speech, facial drooping, nausea, vomiting, abdominal pain, shortness of breath, or any other concerning signs or symptoms. Patient does state that she was seen by her primary care provider a week ago where she had elevated blood pressure of about ?170? but was sent for lab work but has not completed this. She was not prescribed any blood pressure medications. Related Data Home Medications Medication Instructions Recorded Confirmed aspirin 81 mg chewable tablet 81 mg PO DAILY 03/21/20 04/03/20 Previous Rx's Medication Instructions Recorded atorvastatin 20 mg tablet 20 mg PO BEDTIME 30 days #30 tabs 03/25/20 lisinopril 10 mg tablet 10 mg PO DAILY 14 days #14 tabs 04/25/22 Allergies Allergy/AdvReac Type Severity Reaction Status Date / Time No Known Drug Allergies Allergy Verified 04/25/22 12:08 Review of Systems <Jovanny Acevedo PA-C - Last Filed: 04/25/22 17:44> Review of Systems Narrative: GENERAL: Denies chills, fatigue, malaise, fever, sweats. HEENT: Denies sinus pain, ear pain, sore throat, difficulty swallowing, dizziness. RESPIRATORY: Denies dyspnea, cough, wheezing, hemoptysis, sputum. CARDIOVASCULAR: Reports an episode of chest pain previously but none currently, palpitations, orthopnea, edema, GASTROINTESTINAL: Denies nausea, vomiting, abdominal pain, diarrhea, constipation, melena. : Denies dysuria, frequency, incontinence, hematuria, urinary retention. MUSCULOSKELETAL: denies weakness, joint pain, or bony pain SKIN: Denies rash, skin lesions, or other NEUROLOGIC: Reports an episode of blurred vision previously but none currently Denies weakness, headache, numbness, change in speech, confusion, seizures, incoordination. PSYCHIATRIC: No concerning psychosocial issues. 12 point review of systems is negative except for those stated above Patient History <Jovanny Acevedo PA-C - Last Filed: 04/25/22 17:44> Medical History Chicken pox Family history of heart disease Family history of type 2 diabetes mellitus Fracture of tibia and fibula Hearing loss (~2005) Measles Vision disorder Surgical History Anesthesia History of ankle surgery (~1993) History of appendectomy History of cataract removal with insertion of prosthetic lens History of surgery (~2019) History of thumb surgery (~2001) Family History Mother FH: heart attack Diabetes mellitus Father FH: heart attack Sister Breast cancer Brain cancer Social History household members: spouse Smoking Status: Never smoker alcohol intake: never Smoking Status: Never smoker alcohol intake frequency: holidays/special occasions only Substance Use Type: does not use Exam <Jovanny Acevedo PA-C - Last Filed: 04/25/22 17:44> Narrative Exam Narrative: GENERAL: Well-developed patient, in mild distress. HEAD: Atraumatic. Normocephalic. EYES: Pupils equal round and reactive. Extraocular motions intact. No scleral icterus. No injection or drainage. ENT: Nose without bleeding, purulent drainage. Throat without erythema, tonsillar hypertrophy or exudate. Airway patent. NECK: Trachea midline. Non tender CARDIOVASCULAR: Regular rate and rhythm without murmurs, gallops, or rubs. RESPIRATORY: Clear to auscultation. Breath sounds equal bilaterally. No wheezes, rales, or rhonchi. GASTROINTESTINAL: Abdomen soft, non-tender, nondistended. EXTREMITIES: No edema or joint tenderness. BACK: Nontender without deformity or crepitance. No flank tenderness. NEURO: AOx3. Cranial nerves 2-12 intact. SKIN: No rash or erythema of visible areas Initial Vital Signs Initial Vital Signs: Vital Signs Temperature 96.5 F L 04/25/22 12:02 Pulse Rate 86 04/25/22 12:02 Respiratory Rate 16 04/25/22 12:02 Blood Pressure 186/108 H 04/25/22 12:02 Pulse Oximetry 98 04/25/22 12:02 Oxygen Delivery Method 04/25/22 12:02 <Marcelina James DO - Last Filed: 04/26/22 07:43> Initial Vital Signs Initial Vital Signs: Vital Signs Temperature 96.5 F L 04/25/22 12:02 Pulse Rate 86 04/25/22 12:02 Respiratory Rate 16 04/25/22 12:02 Blood Pressure 186/108 H 04/25/22 12:02 Pulse Oximetry 98 04/25/22 12:02 Oxygen Delivery Method 04/25/22 12:02 Scores <Jovanny Acevedo PA-C - Last Filed: 04/25/22 17:44> NIH Stroke Scale Level of Conciousness: Alert, keenly responsive Ask month/age: Answers both questions correctly. Open/close eyes, close hand: Performs both tasks correctly Best gaze horizontal: Normal Visual bolton: No visual loss Facial palsy: Normal symetrical movement Left arm drift: No drift for full 10 sec Right arm drift: No drift for full 10 sec Left leg drift: No drift for full 5 sec Right leg drift: No drift for full 5 sec Limb ataxia: Absent Sensory on face/arms/legs: Normal, no sensory loss Best language: No aphasia, normal Dysarthria: Normal Extinction or inattention: No abnormality Total NIH Stroke scale score: 0 <DO Rodri Naqvi Last Filed: 04/26/22 07:43> NIH Stroke Scale Total NIH Stroke scale score: 0 Course <ATA Mcdowell Last Filed: 04/25/22 17:44> Orders Ordered: Discontinued Medications Lisinopril (Lisinopril 10 Mg Tablet) 10 mg PO NOW ONE Stop: 04/25/22 17:05 Last Admin: 04/25/22 17:22 Dose: Not Given Documented By: MATTHEW Lorazepam (Lorazepam 2 Mg/Ml Inj) 0.5 mg IV NOW ONE Stop: 04/25/22 16:04 Last Admin: 04/25/22 16:18 Dose: 0.5 mg Documented By: MATTHEW Vital Signs Vital signs: Vital Signs - 8 hr 04/25/22 12:02 04/25/22 12:04 04/25/22 12:04 Temperature 96.5 F L Pulse Rate 86 83 Respiratory Rate 16 Blood Pressure 186/108 H 186/108 H Pulse Oximetry 98 96 Oxygen Delivery Method Room Air Room Air 04/25/22 12:30 04/25/22 12:31 04/25/22 12:31 Temperature Pulse Rate 76 76 Respiratory Rate 27 H 25 H Blood Pressure 186/83 H Pulse Oximetry 98 98 Oxygen Delivery Method 04/25/22 13:00 04/25/22 13:01 04/25/22 13:01 Temperature Pulse Rate 92 H 87 Respiratory Rate Blood Pressure 197/106 H Pulse Oximetry Oxygen Delivery Method 04/25/22 13:30 04/25/22 14:00 04/25/22 14:00 Temperature Pulse Rate 75 86 Respiratory Rate 20 Blood Pressure 137/95 H Pulse Oximetry 99 Oxygen Delivery Method Room Air 04/25/22 14:30 04/25/22 14:31 04/25/22 14:31 Temperature Pulse Rate 72 73 Respiratory Rate 20 18 Blood Pressure 183/84 H Pulse Oximetry 98 98 Oxygen Delivery Method Room Air 04/25/22 15:01 04/25/22 15:02 04/25/22 15:02 Temperature Pulse Rate 75 77 Respiratory Rate 19 Blood Pressure 194/82 H Pulse Oximetry 99 Oxygen Delivery Method 04/25/22 15:30 04/25/22 15:30 04/25/22 15:58 Temperature Pulse Rate 70 Respiratory Rate 14 Blood Pressure 190/85 H 212/98 H Pulse Oximetry 98 Oxygen Delivery Method 04/25/22 15:58 04/25/22 16:00 04/25/22 16:01 Temperature Pulse Rate 82 81 Respiratory Rate 28 H Blood Pressure 208/111 H Pulse Oximetry 98 99 Oxygen Delivery Method 04/25/22 16:01 04/25/22 16:30 04/25/22 16:30 Temperature Pulse Rate 87 76 Respiratory Rate 30 H 15 Blood Pressure 185/138 H Pulse Oximetry 99 98 Oxygen Delivery Method 04/25/22 16:53 04/25/22 16:53 04/25/22 16:55 Temperature Pulse Rate 79 Respiratory Rate 36 H Blood Pressure 185/140 H 197/88 H Pulse Oximetry 96 Oxygen Delivery Method 04/25/22 16:55 04/25/22 17:00 04/25/22 17:01 Temperature Pulse Rate 77 79 77 Respiratory Rate 25 H 30 H 24 Blood Pressure Pulse Oximetry 99 98 97 Oxygen Delivery Method 04/25/22 17:01 Temperature Pulse Rate Respiratory Rate Blood Pressure 177/79 H Pulse Oximetry Oxygen Delivery Method <Marcelina James, DO - Last Filed: 04/26/22 07:43> Orders Ordered: Discontinued Medications Lisinopril (Lisinopril 10 Mg Tablet) 10 mg PO NOW ONE Stop: 04/25/22 17:05 Last Admin: 04/25/22 17:22 Dose: Not Given Documented By: MATTHEW Lorazepam (Lorazepam 2 Mg/Ml Inj) 0.5 mg IV NOW ONE Stop: 04/25/22 16:04 Last Admin: 04/25/22 16:18 Dose: 0.5 mg Documented By: MATTHEW Vital Signs Vital signs: Vital Signs - 8 hr 04/25/22 12:02 04/25/22 12:04 04/25/22 12:04 Temperature 96.5 F L Pulse Rate 86 83 Respiratory Rate 16 Blood Pressure 186/108 H 186/108 H Pulse Oximetry 98 96 Oxygen Delivery Method Room Air Room Air 04/25/22 12:30 04/25/22 12:31 04/25/22 12:31 Temperature Pulse Rate 76 76 Respiratory Rate 27 H 25 H Blood Pressure 186/83 H Pulse Oximetry 98 98 Oxygen Delivery Method 04/25/22 13:00 04/25/22 13:01 04/25/22 13:01 Temperature Pulse Rate 92 H 87 Respiratory Rate Blood Pressure 197/106 H Pulse Oximetry Oxygen Delivery Method 04/25/22 13:30 04/25/22 14:00 04/25/22 14:00 Temperature Pulse Rate 75 86 Respiratory Rate 20 Blood Pressure 137/95 H Pulse Oximetry 99 Oxygen Delivery Method Room Air 04/25/22 14:30 04/25/22 14:31 04/25/22 14:31 Temperature Pulse Rate 72 73 Respiratory Rate 20 18 Blood Pressure 183/84 H Pulse Oximetry 98 98 Oxygen Delivery Method Room Air 04/25/22 15:01 04/25/22 15:02 04/25/22 15:02 Temperature Pulse Rate 75 77 Respiratory Rate 19 Blood Pressure 194/82 H Pulse Oximetry 99 Oxygen Delivery Method 04/25/22 15:30 04/25/22 15:30 04/25/22 15:58 Temperature Pulse Rate 70 Respiratory Rate 14 Blood Pressure 190/85 H 212/98 H Pulse Oximetry 98 Oxygen Delivery Method 04/25/22 15:58 04/25/22 16:00 04/25/22 16:01 Temperature Pulse Rate 82 81 Respiratory Rate 28 H Blood Pressure 208/111 H Pulse Oximetry 98 99 Oxygen Delivery Method 04/25/22 16:01 04/25/22 16:30 04/25/22 16:30 Temperature Pulse Rate 87 76 Respiratory Rate 30 H 15 Blood Pressure 185/138 H Pulse Oximetry 99 98 Oxygen Delivery Method 04/25/22 16:53 04/25/22 16:53 04/25/22 16:55 Temperature Pulse Rate 79 Respiratory Rate 36 H Blood Pressure 185/140 H 197/88 H Pulse Oximetry 96 Oxygen Delivery Method 04/25/22 16:55 04/25/22 17:00 04/25/22 17:01 Temperature Pulse Rate 77 79 77 Respiratory Rate 25 H 30 H 24 Blood Pressure Pulse Oximetry 99 98 97 Oxygen Delivery Method 04/25/22 17:01 Temperature Pulse Rate Respiratory Rate Blood Pressure 177/79 H Pulse Oximetry Oxygen Delivery Method MDM - Chest Pain <Jovanny Acevedo PA-C - Last Filed: 04/25/22 17:44> Lab Data 04/25/22 12:10 04/25/22 12:10 Labs: Lab Results 04/25/22 04/25/22 04/25/22 Range/Units 12:10 12:10 12:10 WBC 7.6 (4.5-11.0) X10^3/uL RBC 4.39 (4.0-5.2) X10^6/uL Hgb 13.2 (12.0-16.0) g/dL Hct 39.5 (36-46) % MCV 90.0 (80-100) fL MCH 30.1 (26-34) PG MCHC 33.4 (30-36) % RDW 14.6 (11.6-14.8) % Plt Count 196 (150-400) X10^3/uL Neut % (Auto) 56.5 (50-75) % Lymph % (Auto) 27.6 (25-40) % [place] % (Auto) 11.5 (3-14) % Eos % (Auto) 3.6 (2-4) % Baso % (Auto) 0.8 (0-2) % Neut # (Auto) 4300 (6774-4107) /uL Lymph # (Auto) 2100 (4739-1394) /uL [place] # (Auto) 900 (0-900) /uL Eos # (Auto) 300 (0-450) /uL Baso # (Auto) 100 (0-100) /uL PT 11.5 (10.1-12.7) SECONDS INR 1.0 (0.9-1.3) APTT 30 (26-36) SECONDS Sodium 139 (137-145) mmol/L Potassium 4.1 (3.4-5.1) mmol/L Chloride 104 (98-107) mmol/L Carbon Dioxide 26 (22-32) mmol/L BUN 20 H (7-17) mg/dL Creatinine 0.83 (0.52-1.04) mg/dL Estimated GFR > 60 (>60) mL/min BUN/Creatinine Ratio 24.1 H (6-22) Glucose 90 (80-110) mg/dL Calcium 9.4 (8.4-10.2) mg/dL Magnesium 2.2 (1.6-2.3) mg/dL Total Bilirubin 0.4 (0.2-1.3) mg/dL AST 38 H (14-36) IU/L ALT 39 H (<35) IU/L Alkaline Phosphatase 101 (38-126) U/L Total Creatine Kinase 67 (30-135) U/L CK-MB (CK-2) TNP CK-MB (CK-2) Rel Index TNP Troponin I < 0.012 (0.01-0.034) ng/mL Total Protein 8.2 (6.3-8.2) g/dL Albumin 4.3 (3.5-5.0) g/dL Globulin 3.9 (1.7-4.1) g/dL Albumin/Globulin Ratio 1.1 (1.0-2.8) Lipase 216 (23-300) U/L 04/25/22 04/25/22 Range/Units 12:29 14:17 WBC (4.5-11.0) X10^3/uL RBC (4.0-5.2) X10^6/uL Hgb (12.0-16.0) g/dL Hct (36-46) % MCV (80-100) fL MCH (26-34) PG MCHC (30-36) % RDW (11.6-14.8) % Plt Count (150-400) X10^3/uL Neut % (Auto) (50-75) % Lymph % (Auto) (25-40) % [place] % (Auto) (3-14) % Eos % (Auto) (2-4) % Baso % (Auto) (0-2) % Neut # (Auto) (1588-9287) /uL Lymph # (Auto) (6870-5123) /uL [place] # (Auto) (0-900) /uL Eos # (Auto) (0-450) /uL Baso # (Auto) (0-100) /uL PT (10.1-12.7) SECONDS INR (0.9-1.3) APTT (26-36) SECONDS Sodium (137-145) mmol/L Potassium (3.4-5.1) mmol/L Chloride (98-107) mmol/L Carbon Dioxide (22-32) mmol/L BUN (7-17) mg/dL Creatinine (0.52-1.04) mg/dL Estimated GFR (>60) mL/min BUN/Creatinine Ratio (6-22) Glucose (80-110) mg/dL Calcium (8.4-10.2) mg/dL Magnesium (1.6-2.3) mg/dL Total Bilirubin (0.2-1.3) mg/dL AST (14-36) IU/L ALT (<35) IU/L Alkaline Phosphatase (38-126) U/L Total Creatine Kinase (30-135) U/L CK-MB (CK-2) CK-MB (CK-2) Rel Index Troponin I < 0.012 < 0.012 (0.01-0.034) ng/mL Total Protein (6.3-8.2) g/dL Albumin (3.5-5.0) g/dL Globulin (1.7-4.1) g/dL Albumin/Globulin Ratio (1.0-2.8) Lipase (23-300) U/L ECG Data Interpretation: 1226: EKG is normal sinus rhythm rate 73 and free of any signs of ischemia or ectopy. No ST segmental elevation or depression. T wave inversions in leads 3 and AVR 1406: Similar to prior. EKG is normal sinus rhythm rate 77 and free of any signs of ischemia or ectopy. No ST segmental elevation or depression. T-wave inversions in leads 3 and AVR MDM Narrative Medical decision making narrative: MDM * differential diagnosis includes but not limited to acute CVA, stable angina unstable, STEMI, NSTEMI, migraine * Prior records reviewed: Patient was seen at her primary care clinic earlier this week for blood pressure checks with blood pressures ranging * My lab interpretation: Patient's troponin x2 were within normal limits. EKG showed no evidence of STEMI, low concern for ACS. Other lab work was essentially unremarkable as well. * My imgaing interpretation: Chest x-ray unremarkable. CTA head and neck unremarkable as well * Clinical Decision Rules/Scores evaluated: NIH and heart score as above. NIH 0, heart score 3 * Independent discussions with: Spoke with patient's on-call provider for her primary care group, Dr. Arce, who recommended discharging the patient with 10 mg of lisinopril daily follow up in their office. Heart score of 3 ED Course: Is an 81-year-old female presents emergency department due to an episode of blurred vision as well as left arm pain. Patient's left arm pain as well as blurred vision had improved during time of exam. Patient's blood pressure was elevated in roughly the 190s systolic early through the encounter with some improvement over time. She has been seeing her primary care provider for workup of this elevated blood pressure but has yet to receive a blood pressure medication. A CTA of the head and neck was ordered which showed no acute findings. Low concern for any kind of CVA this time. Multiple EKGs were taken which showed no evidence of STEMI. Multiple troponins ordered as well which were both within normal limits. Low concern for ACS but recommended patient follow up with the primary care provider for further cardiac workup the symptoms continue. Spoke with patient's primary care provider on-call provider who recommended starting the patient on 10 mg of lisinopril daily and follow up with them for repeat blood pressure evaluation. Suspect symptoms are due to the elevated blood pressure values. At time of discharge patient's blood pressure had improved to 177/79. Patient was comfortable plan for discharge and follow up with her primary care provider's office. Shared Decision Making: Discussed plan with patient who is agreeable to the plan Social Considerations: None Disposition: Discharged to home <Marcelina James DO - Last Filed: 04/26/22 07:43> Lab Data Labs: Lab Results 04/25/22 04/25/22 04/25/22 Range/Units 12:10 12:10 12:10 WBC 7.6 (4.5-11.0) X10^3/uL RBC 4.39 (4.0-5.2) X10^6/uL Hgb 13.2 (12.0-16.0) g/dL Hct 39.5 (36-46) % MCV 90.0 (80-100) fL MCH 30.1 (26-34) PG MCHC 33.4 (30-36) % RDW 14.6 (11.6-14.8) % Plt Count 196 (150-400) X10^3/uL Neut % (Auto) 56.5 (50-75) % Lymph % (Auto) 27.6 (25-40) % [place] % (Auto) 11.5 (3-14) % Eos % (Auto) 3.6 (2-4) % Baso % (Auto) 0.8 (0-2) % Neut # (Auto) 4300 (2807-1711) /uL Lymph # (Auto) 2100 (9977-0973) /uL [place] # (Auto) 900 (0-900) /uL Eos # (Auto) 300 (0-450) /uL Baso # (Auto) 100 (0-100) /uL PT 11.5 (10.1-12.7) SECONDS INR 1.0 (0.9-1.3) APTT 30 (26-36) SECONDS Sodium 139 (137-145) mmol/L Potassium 4.1 (3.4-5.1) mmol/L Chloride 104 (98-107) mmol/L Carbon Dioxide 26 (22-32) mmol/L BUN 20 H (7-17) mg/dL Creatinine 0.83 (0.52-1.04) mg/dL Estimated GFR > 60 (>60) mL/min BUN/Creatinine Ratio 24.1 H (6-22) Glucose 90 (80-110) mg/dL Calcium 9.4 (8.4-10.2) mg/dL Magnesium 2.2 (1.6-2.3) mg/dL Total Bilirubin 0.4 (0.2-1.3) mg/dL AST 38 H (14-36) IU/L ALT 39 H (<35) IU/L Alkaline Phosphatase 101 (38-126) U/L Total Creatine Kinase 67 (30-135) U/L CK-MB (CK-2) TNP CK-MB (CK-2) Rel Index TNP Troponin I < 0.012 (0.01-0.034) ng/mL Total Protein 8.2 (6.3-8.2) g/dL Albumin 4.3 (3.5-5.0) g/dL Globulin 3.9 (1.7-4.1) g/dL Albumin/Globulin Ratio 1.1 (1.0-2.8) Lipase 216 (23-300) U/L 04/25/22 04/25/22 Range/Units 12:29 14:17 WBC (4.5-11.0) X10^3/uL RBC (4.0-5.2) X10^6/uL Hgb (12.0-16.0) g/dL Hct (36-46) % MCV (80-100) fL MCH (26-34) PG MCHC (30-36) % RDW (11.6-14.8) % Plt Count (150-400) X10^3/uL Neut % (Auto) (50-75) % Lymph % (Auto) (25-40) % [place] % (Auto) (3-14) % Eos % (Auto) (2-4) % Baso % (Auto) (0-2) % Neut # (Auto) (1068-4298) /uL Lymph # (Auto) (1416-2489) /uL [place] # (Auto) (0-900) /uL Eos # (Auto) (0-450) /uL Baso # (Auto) (0-100) /uL PT (10.1-12.7) SECONDS INR (0.9-1.3) APTT (26-36) SECONDS Sodium (137-145) mmol/L Potassium (3.4-5.1) mmol/L Chloride (98-107) mmol/L Carbon Dioxide (22-32) mmol/L BUN (7-17) mg/dL Creatinine (0.52-1.04) mg/dL Estimated GFR (>60) mL/min BUN/Creatinine Ratio (6-22) Glucose (80-110) mg/dL Calcium (8.4-10.2) mg/dL Magnesium (1.6-2.3) mg/dL Total Bilirubin (0.2-1.3) mg/dL AST (14-36) IU/L ALT (<35) IU/L Alkaline Phosphatase (38-126) U/L Total Creatine Kinase (30-135) U/L CK-MB (CK-2) CK-MB (CK-2) Rel Index Troponin I < 0.012 < 0.012 (0.01-0.034) ng/mL Total Protein (6.3-8.2) g/dL Albumin (3.5-5.0) g/dL Globulin (1.7-4.1) g/dL Albumin/Globulin Ratio (1.0-2.8) Lipase (23-300) U/L ECG Data Interpretation: 1226: EKG is normal sinus rhythm rate 73 and free of any signs of ischemia or ectopy. No ST segmental elevation or depression. T wave inversions in leads 3 and AVR 1406: Similar to prior. EKG is normal sinus rhythm rate 77 and free of any signs of ischemia or ectopy. No ST segmental elevation or depression. T-wave inversions in leads 3 and AVR Jacob EKG 1. Normal sinus rhythm rate 73 AL interval 116 QRS 94 QTC 436 T-wave inversion noted in V1 and lead [address] elevations or depressions EKG 2. Sinus rhythm rate 77 no changes from prior Discharge Plan Departure Patient Disposition: Home Clinical Impression: Elevated blood pressure reading, Asymptomatic hypertension Instructions: High Blood Pressure Activity Restrictions/Additional Instructions: Thank you for coming to [facility] Emergency Department today. As discussed you had had multiple high blood pressure readings. But there is no evidence of any kind? end-organ damage?. The lab work and EKG to check your heart showed no evidence of any kind of heart attack. The CT of the head we took also showed no evidence of any kind of stroke. Please follow-up with your primary care office as soon as possible for re-evaluation of your blood pressure readings and management of your blood pressure medications. We spoke with your primary care office with the doctor on-call, Dr. Arce, who recommended we start lisinopril 10 mg daily which was sent to the [facility] in [place]. May begin taking tonight. I hope you feel better soon. Prescriptions: New lisinopril 10 mg tablet 10 mg PO DAILY 14 Days Qty: 14 0RF No Action atorvastatin 20 mg tablet 20 mg PO BEDTIME 30 Days Qty: 30 2RF Hold Instructions: not taking since 2020 aspirin 81 mg tablet,chewable 81 mg PO DAILY Referrals: Nayla Boland DO [Primary Care Provider] - Stand Alone Forms: Patient Portal/API <Marcelina James DO - Last Filed: 04/26/22 07:43> Cosign ED Attending Cosignature Attestation: I saw and evaluated patient myself. She is noted to be extremely hypertensive here in the emergency department with some headache like symptoms and possible blurry vision. NIH stroke scale of 0. Blood work is reassuring without any sign of end-organ damage, 2- troponins. Throughout her ED stay she is extremely hypertensive initially talked about head CT however very claustrophobic very anxious about it tried to explain that is not an MRI offered to have her go see the CT initially decided to hold off on a CT scanner. However due to persistent hypertension and ongoing headache and fuzziness convince her to do a CT angio she was given Ativan prior which actually improved her blood pressure. Her previous blood pressures that she was checking at home were in the 140s and 150s. Not sure if today is is an exacerbation or flare is an anxiety component. She had 1 blood pressure reading at 137/95 but all others were in th 190's. CT angio is negative for any aneurysm or intracranial hemorrhage. I suspect her symptoms are secondary to hypertension. KIKO Acevedo spoke with PCP ordered lisinopril for outpatient. I was immediately available in the department for consultation. Documentation has been reviewed.
[2022-04-25 12:25] LABS: Prothrombin Time 11.5 SECONDS (10.1-12.7)
[2022-04-25 12:27] LABS: PTT Partial Thromboplastin Tim 30 SECONDS (26-36)
[2022-04-25 12:29] LABS: Alanine Aminotransferase 39 IU/L (<35); Albumin 4.3 g/dL (3.5-5.0); Albumin Globulin Ratio 1.1 (1.0-2.8); Alkaline Phosphatase 101 U/L (38-126); Aspartate Aminotransferase 38 IU/L (14-36); BUN Creatinine Ratio 24.1 (6-22); Bilirubin Total 0.4 mg/dL (0.2-1.3); Blood Urea Nitrogen 20 mg/dL (7-17); Calcium 9.4 mg/dL (8.4-10.2); Carbon Dioxide 26 mmol/L (22-32); Chloride 104 mmol/L (98-107); Creatine Kinase 67 U/L (30-135); Estimated Glomerular Filt Rate > 60 mL/min (>60); Globulin 3.9 g/dL (1.7-4.1); Glucose 90 mg/dL (80-110); HEMOLYSIS < 15 (0-50); Lipase 216 U/L (23-300); Magnesium 2.2 mg/dL (1.6-2.3); Potassium 4.1 mmol/L (3.4-5.1); Sodium 139 mmol/L (137-145); Total Protein 8.2 g/dL (6.3-8.2)
[2022-04-25 12:41] LABS: Troponin I < 0.012 ng/mL (0.01-0.034)
[2022-04-25 13:59] LABS: Troponin I < 0.012 ng/mL (0.01-0.034)
[2022-04-25 14:55] LABS: Troponin I < 0.012 ng/mL (0.01-0.034)
--- NOTE | 2022-04-25 16:04 | DI.CT.S_ITS ---
PROCEDURE: CT ANGIO HEAD AND NECK INDICATIONS: Elevated BP, neck stiffness, episode of blurred vision TECHNIQUE: Pre-contrast 4.5 mm thick sections acquired from the foramen magnum to the vertex. After the administration of intravenous contrast, 1 mm thick sections acquired from the aortic arch through the [place]. Post-contrast 4.5 mm thick sections then re-acquired from the foramen magnum to the vertex. 3-dimensional cjmicjf-kjjbvkegu-xmckinczja (MIP) and/or volume rendering reformats were acquired of the central intracranial vasculature and neck separately. For radiation dose reduction, the following was used: automated exposure control, adjustment of mA and/or kV according to patient size. COMPARISON: None. FINDINGS: Image quality: Excellent. BRAIN: CSF spaces: Ventricles are normal in size and shape. Basal cisterns are patent. No extra-axial fluid collections. Brain: No midline shift. Mild diffuse cerebral volume loss. Moderate degree of patchy low-density within the periventricular and subcortical white matter. No intracranial bleeds or masses. Angel-white matter interface appears intact. Skull and face: Calvarium and facial bones appear intact, without suspicious lesions. Orbits appear normal. Sinuses: Sinuses and mastoids are clear. HEAD CT ANGIOGRAPHY: Anterior circulation: There is mild calcific stenosis of the cavernous segments of the bilateral internal carotid arteries. Intracranial internal carotid arteries are otherwise normal in size and flow. The flow within the paired anterior cerebral arteries is normal and symmetric. The flow within the middle cerebral arteries is normal and symmetric. The anterior communicating artery is seen. No aneurysms are seen. Posterior circulation: Visualized portions of the vertebral arteries demonstrate normal caliber, and join to form a normal appearing basilar artery. Flow within the posterior cerebral arteries is normal and symmetric. No aneurysms are seen. NECK CT ANGIOGRAPHY: Carotid system: The great vessels demonstrate a conventional anatomy as they arise from the aortic arch. The origins of the common carotid arteries appear patent. The common carotid arteries demonstrate normal caliber and courses. The bifurcation regions are both widely patent. Roughly 30% calcific stenosis of the proximal right internal carotid artery. Roughly 50% calcific stenosis of the proximal left internal carotid artery. Posterior circulation: Moderate calcific origin stenosis of the right vertebral artery. High-grade calcific origin stenosis of the left vertebral artery. The more superior extracranial portions of both vertebral arteries also demonstrate normal courses and calibers. They join to form a normal appearing basilar artery. Soft tissues: Visualized neck soft tissues demonstrate no suspicious abnormalities. Bones: No suspicious bony lesions. Visualized cervical spine appears normally aligned. IMPRESSION: 1. No acute process involving the arterial tree of the head and neck. 2. Bilateral internal carotid and vertebral artery stenoses as described above. Any quantitative measurements of stenosis were performed using NASCET criteria. Dictated by: Doug Ambriz M.D. on 04/25/2022 at 16:58 Approved by: Doug Ambriz M.D. on 04/25/2022 at 17:00
[2022-04-25] MEDS: LORazepam 2 MG/ML INJ 0.5 MG IV (16:18)
== END 2022-04-25 17:42 | disposition home or self-care (01) ==
PROVIDERS: Emergency Provider Physician Assistant Medical; PCP Family Medicine
DX: I10 Essential (primary) hypertension (principal); H53.8 Other visual disturbances; M79.602 Pain in left arm
CPT/HCPCS: 36415; 70496; 70498; 71045; 80053; 82550; 83690; 83735; 84484; 85025; 85610; 85730; 93005; 93010; 96374; 99284; J2060; Q9967

== ENCOUNTER → 2022-05-29 08:06 | Outpatient (CLI) | payer MEDICARE, SELFPAY ==
[2019-09-30 20:06] VITALS: BMI 24.5
[2022-05-29 08:59] LABS: Cholesterol 281 mg/dL (140-199); HDL Cholesterol 80 mg/dL (40-60); LDL Cholesterol Calculated 184 mg/dL (<100); Triglycerides 86 mg/dL (35-150)
[2022-05-29 09:17] LABS: Hemoglobin A1C% w Est Avg Glu 5.9 % (4.0-6.0)
[2022-05-29 11:19] LABS: Creatinine Urine Random 52.6 mg/dL
[2022-05-29 11:23] LABS: Microalbumin Urine Random < 0.6 mg/dL (0-1.6)
== END ==
PROVIDERS: PCP Family Medicine; Referring Provider Family Medicine; Visit Provider Family Medicine
DX: E78.5 Hyperlipidemia, unspecified (principal); L23.9 Allergic contact dermatitis, unspecified cause; L71.9 Rosacea, unspecified; N81.2 Incomplete uterovaginal prolapse; Z82.49 Family history of ischemic heart disease and other diseases of the circulatory system; Z83.3 Family history of diabetes mellitus; I10 Essential (primary) hypertension
CPT/HCPCS: 36415; 80061; 82043; 82570; 83036

== ENCOUNTER 2023-06-01 17:01 | Emergency (ER) | payer MEDICARE, SELFPAY ==
[2019-09-30 20:06] VITALS: BMI 24.5
[2023-06-01] VITALS (16 sets, daily range): BP systolic 150–215; BP diastolic 70–101; PULSE 73–116; RESP 18–32; TEMP 36.7; O2SAT 96–99; BMI 27.1
--- NOTE | 2023-06-01 17:14 | DI.RAD.S_ITS ---
PROCEDURE: XR CHEST 1V INDICATIONS: chest pain TECHNIQUE: One view of the chest was acquired. COMPARISON: [facility], CR, XR CHEST 1V, 04/25/2022, 12:04. FINDINGS: Surgical changes and devices: None. Lungs and pleura: Lungs are clear. No pleural effusions or pneumothorax. Mediastinum: Mediastinal contours appear normal. Heart size is normal. Bones and chest wall: No suspicious bony lesions. Overlying soft tissues appear unremarkable. IMPRESSION: No acute cardiopulmonary abnormality is seen. Dictated by: Severino Benjamin M.D. on 06/01/2023 at 16:49 Approved by: Severino Benjamin M.D. on 06/01/2023 at 16:51
--- NOTE | 2023-06-01 17:21 | ED.CHESTPAIN ---
HPI - Chest Pain <Ashley Hernandez MD - Last Filed: 06/02/23 07:11> General Chief Complaint: Chest Pain Stated Complaint: chest pain/bp meds changed t-6 Time Seen by Provider: 06/01/23 17:07 Source: patient Mode of arrival: Ambulatory History of Present Illness HPI narrative: 82-year-old female with history of hypertension presents by private vehicle from home for central, substernal, nonradiating chest pressure, hypertension, as well as the sensation of disorientation. 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 She went inside and went to go lay down. When she woke up she felt ?disoriented and generally unwell and called her daughter. At home BP elevated and they decided to come to the ED for evaluation. Patient reports change in BP med from Lisinopril to irbesartan 4 days prior, however BP well controlled until today. Related Data Home Medications Medication Instructions Recorded Confirmed aspirin 325 mg tablet 325 mg PO BID 05/07/22 05/28/23 Previous Rx's Medication Instructions Recorded atorvastatin 20 mg tablet 20 mg PO BEDTIME 30 days #30 tabs 03/25/20 benzonatate 100 mg capsule 100 mg PO TID PRN cough #30 caps 05/28/23 irbesartan 150 mg tablet 150 mg PO DAILY #30 tabs 05/28/23 Allergies Allergy/AdvReac Type Severity Reaction Status Date / Time trazodone AdvReac Intermediate Nightmare Verified 06/01/23 17:11 Review of Systems <Ashley Hernandez MD - Last Filed: 06/02/23 07:11> Review of Systems Narrative: Negative except as noted above Patient History <Ashley Hernandez MD - Last Filed: 06/02/23 07:11> Medical History Vision disorder Measles Chicken pox Hearing loss (~2005) Family history of type 2 diabetes mellitus Family history of heart disease Crush injury lower leg Fracture of tibia and fibula Strain of left trapezius muscle Right maxillary sinusitis, chronic Surgical History Anesthesia History of thumb surgery (~2001) History of appendectomy History of surgery (~2019) History of cataract removal with insertion of prosthetic lens History of ankle surgery (~1993) Family History Mother FH: heart attack Diabetes mellitus Father FH: heart attack Sister Breast cancer Brain cancer Social History household members: spouse Smoking Status: Never smoker alcohol intake: never substance use type: does not use Smoking Status: Never smoker alcohol intake frequency: holidays/special occasions only Substance Use Type: does not use Exam <Ashley Hernandez MD - Last Filed: 06/02/23 07:11> Initial Vital Signs Initial Vital Signs: Vital Signs Pulse Rate 116 H 06/01/23 17:06 Pulse Oximetry 99 06/01/23 17:06 Const: Awake, alert, anxious Cardiac: Tachycardia, regular rhythm RESP: unlabored, clear bilaterally, no wheezing GI: Soft, nontender, nondistended, no rebound, no guarding MSK: Atraumatic, full range of motion, pulses equal Skin: Warm, Dry, intact, no rashes Neuro: AO x3, CN II-XII grossly intact, moves all extremities <Zechariah Foster DO - Last Filed: 06/01/23 20:07> Initial Vital Signs Initial Vital Signs: Vital Signs Pulse Rate 116 H 06/01/23 17:06 Pulse Oximetry 99 06/01/23 17:06 Course <Ashley Hernandez MD - Last Filed: 06/02/23 07:11> Orders Ordered: Discontinued Medications Aspirin (Aspirin 81 Mg Chew Tab) 324 mg PO NOW ONE Stop: 06/01/23 17:15 Last Admin: 06/01/23 17:24 Dose: 324 mg Documented By: LORE Sodium Chloride (Normal Saline 0.9%) 1,000 mls @ 150 mls/hr IV CONT GAVIN Last Infusion: 06/01/23 19:14 Dose: Infused Documented By: Admin: 06/01/23 17:24 Dose: 150 mls/hr Documented By: LORE Lorazepam (Lorazepam 2 Mg/Ml Inj) 1 mg IV NOW ONE Stop: 06/01/23 17:15 Last Admin: 06/01/23 17:24 Dose: 1 mg Documented By: LORE Vital Signs Vital signs: Vital Signs - 8 hr 06/01/23 17:06 06/01/23 17:09 06/01/23 17:09 Temperature Pulse Rate 116 H 95 H Respiratory Rate 32 H Blood Pressure 215/101 H Pulse Oximetry 99 98 Oxygen Delivery Method 06/01/23 17:11 06/01/23 17:29 06/01/23 17:29 Temperature 98.1 F Pulse Rate 103 H 82 Respiratory Rate 20 32 H Blood Pressure 215/101 H 172/81 H Pulse Oximetry 99 97 Oxygen Delivery Method Room Air 06/01/23 17:30 06/01/23 17:31 06/01/23 17:31 Temperature Pulse Rate 81 83 Respiratory Rate 25 H 21 Blood Pressure 170/80 H Pulse Oximetry 97 97 Oxygen Delivery Method Room Air 06/01/23 17:49 06/01/23 17:49 06/01/23 18:00 Temperature Pulse Rate 79 73 Respiratory Rate 18 22 Blood Pressure 150/70 H Pulse Oximetry 96 96 Oxygen Delivery Method Room Air 06/01/23 18:01 06/01/23 18:01 06/01/23 18:28 Temperature Pulse Rate 79 Respiratory Rate 22 Blood Pressure 154/73 H 164/74 H Pulse Oximetry 97 Oxygen Delivery Method 06/01/23 18:28 06/01/23 18:30 06/01/23 18:31 Temperature Pulse Rate 74 74 Respiratory Rate 20 22 Blood Pressure 156/73 H Pulse Oximetry 97 99 Oxygen Delivery Method 06/01/23 18:31 06/01/23 19:00 06/01/23 19:00 Temperature Pulse Rate 73 74 Respiratory Rate 22 22 Blood Pressure 176/72 H Pulse Oximetry 99 98 Oxygen Delivery Method 06/01/23 19:30 06/01/23 19:31 06/01/23 19:31 Temperature Pulse Rate 74 74 Respiratory Rate 20 24 Blood Pressure 173/81 H Pulse Oximetry 97 97 Oxygen Delivery Method <Zechariah Foster DO - Last Filed: 06/01/23 20:07> Orders Ordered: Discontinued Medications Aspirin (Aspirin 81 Mg Chew Tab) 324 mg PO NOW ONE Stop: 06/01/23 17:15 Last Admin: 06/01/23 17:24 Dose: 324 mg Documented By: LORE Sodium Chloride (Normal Saline 0.9%) 1,000 mls @ 150 mls/hr IV CONT GAVIN Last Infusion: 06/01/23 19:14 Dose: Infused Documented By: Admin: 06/01/23 17:24 Dose: 150 mls/hr Documented By: LORE Lorazepam (Lorazepam 2 Mg/Ml Inj) 1 mg IV NOW ONE Stop: 06/01/23 17:15 Last Admin: 06/01/23 17:24 Dose: 1 mg Documented By: LORE Vital Signs Vital signs: Vital Signs - 8 hr 06/01/23 17:06 06/01/23 17:09 06/01/23 17:09 Temperature Pulse Rate 116 H 95 H Respiratory Rate 32 H Blood Pressure 215/101 H Pulse Oximetry 99 98 Oxygen Delivery Method 06/01/23 17:11 06/01/23 17:29 06/01/23 17:29 Temperature 98.1 F Pulse Rate 103 H 82 Respiratory Rate 20 32 H Blood Pressure 215/101 H 172/81 H Pulse Oximetry 99 97 Oxygen Delivery Method Room Air 06/01/23 17:30 06/01/23 17:31 06/01/23 17:31 Temperature Pulse Rate 81 83 Respiratory Rate 25 H 21 Blood Pressure 170/80 H Pulse Oximetry 97 97 Oxygen Delivery Method Room Air 06/01/23 17:49 06/01/23 17:49 06/01/23 18:00 Temperature Pulse Rate 79 73 Respiratory Rate 18 22 Blood Pressure 150/70 H Pulse Oximetry 96 96 Oxygen Delivery Method Room Air 06/01/23 18:01 06/01/23 18:01 06/01/23 18:28 Temperature Pulse Rate 79 Respiratory Rate 22 Blood Pressure 154/73 H 164/74 H Pulse Oximetry 97 Oxygen Delivery Method 06/01/23 18:28 06/01/23 18:30 06/01/23 18:31 Temperature Pulse Rate 74 74 Respiratory Rate 20 22 Blood Pressure 156/73 H Pulse Oximetry 97 99 Oxygen Delivery Method 06/01/23 18:31 06/01/23 19:00 06/01/23 19:00 Temperature Pulse Rate 73 74 Respiratory Rate 22 22 Blood Pressure 176/72 H Pulse Oximetry 99 98 Oxygen Delivery Method 06/01/23 19:30 06/01/23 19:31 06/01/23 19:31 Temperature Pulse Rate 74 74 Respiratory Rate 20 24 Blood Pressure 173/81 H Pulse Oximetry 97 97 Oxygen Delivery Method MDM - Chest Pain <Ashley Hernandez MD - Last Filed: 06/02/23 07:11> Lab Data 06/01/23 17:11 06/01/23 17:11 Labs: Lab Results 06/01/23 06/01/23 Range/Units 17:11 19:15 WBC 11.7 H (4.5-11.0) X10^3/uL RBC 4.39 (4.0-5.2) X10^6/uL Hgb 13.3 (12.0-16.0) g/dL Hct 40.1 (36-46) % MCV 91.2 (80-100) fL MCH 30.3 (26-34) PG MCHC 33.3 (30-36) % RDW 14.4 (11.6-14.8) % Plt Count 255 (150-400) X10^3/uL Neut % (Auto) 64.0 (50-75) % Lymph % (Auto) 23.9 L (25-40) % [place] % (Auto) 8.4 (3-14) % Eos % (Auto) 2.5 (2-4) % Baso % (Auto) 1.2 (0-2) % Neut # (Auto) 7500 H (1846-2809) /uL Lymph # (Auto) 2800 (2541-1541) /uL [place] # (Auto) 1000 H (0-900) /uL Eos # (Auto) 300 (0-450) /uL Baso # (Auto) 100 (0-100) /uL PT 10.7 (9.4-12.5) SECONDS INR 0.9 (0.9-1.3) APTT 33 (25.1-36.5) SECONDS D-Dimer 1648 H (<500) ng/ml Sodium 140 (137-145) mmol/L Potassium 4.5 (3.4-5.1) mmol/L Chloride 108 H (98-107) mmol/L Carbon Dioxide 24 (22-32) mmol/L BUN 24 H (7-17) mg/dL Creatinine 0.99 (0.52-1.04) mg/dL Estimated GFR 57 L (>60) mL/min BUN/Creatinine Ratio 24.2 H (6-22) Glucose 104 (80-110) mg/dL Calcium 10.0 (8.4-10.2) mg/dL Total Bilirubin 0.5 (0.2-1.3) mg/dL AST 31 (14-36) IU/L ALT 24 (<35) IU/L Alkaline Phosphatase 86 (38-126) U/L Total Creatine Kinase 86 67 (30-135) U/L Troponin I < 0.012 < 0.012 (0.01-0.034) ng/mL NT-Pro-B Natriuret Pep 75 (<450) pg/mL Total Protein 8.3 H (6.3-8.2) g/dL Albumin 4.3 (3.5-5.0) g/dL Globulin 4.0 (1.7-4.1) g/dL Albumin/Globulin Ratio 1.1 (1.0-2.8) Lipase 259 (23-300) U/L ECG Data Interpretation: Normal sinus rhythm 83 bpm, normal CO, normal axis, no acute ST-T wave changes. MDM Narrative Medical decision making narrative: Central chest pressure beginning at approximately 2:00 p.m.. 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 Patient has a blood pressure log at home that reports good blood pressure control until this afternoon. Chest pain not reproducible. EKG normal sinus rhythm without obvious ST T wave changes or elevations to suggest acute ischemia. Patient given aspirin, small dose of Ativan. Cardiac workup initiated Initial troponin negative. BP downtrending. D-dimer elevated. Care of patient turned over to Dr. Foster at 1800. Dr foster: Received turned over. Review patient's history and physical and workup up to this point. Patient has had a nonischemic EKG, troponins are negative x2. Blood pressure has fluctuated somewhat. She recently had a change in her blood pressure medications due to a lack of adequate control and also potential cough caused by the lisinopril. I reviewed her home blood pressure medication chart. She averages 130s to 140 systolic. No changes in this needed today. We did discuss the lack of a definitive diagnosis. Discussed admission to the hospital for stress test versus doing this as an outpatient and she would like to do it as an outpatient. She was scheduled to get blood drawn tomorrow and follow-up in a couple days with her primary doctor. Will discharge patient home with return precautions. She expressed understanding and agreement with plan. <Zechariah Foster, DO - Last Filed: 06/01/23 20:07> Lab Data Attestation: I reviewed the patient's lab results. Labs: Lab Results 06/01/23 06/01/23 Range/Units 17:11 19:15 WBC 11.7 H (4.5-11.0) X10^3/uL RBC 4.39 (4.0-5.2) X10^6/uL Hgb 13.3 (12.0-16.0) g/dL Hct 40.1 (36-46) % MCV 91.2 (80-100) fL MCH 30.3 (26-34) PG MCHC 33.3 (30-36) % RDW 14.4 (11.6-14.8) % Plt Count 255 (150-400) X10^3/uL Neut % (Auto) 64.0 (50-75) % Lymph % (Auto) 23.9 L (25-40) % [place] % (Auto) 8.4 (3-14) % Eos % (Auto) 2.5 (2-4) % Baso % (Auto) 1.2 (0-2) % Neut # (Auto) 7500 H (2710-7429) /uL Lymph # (Auto) 2800 (8798-0492) /uL [place] # (Auto) 1000 H (0-900) /uL Eos # (Auto) 300 (0-450) /uL Baso # (Auto) 100 (0-100) /uL PT 10.7 (9.4-12.5) SECONDS INR 0.9 (0.9-1.3) APTT 33 (25.1-36.5) SECONDS D-Dimer 1648 H (<500) ng/ml Sodium 140 (137-145) mmol/L Potassium 4.5 (3.4-5.1) mmol/L Chloride 108 H (98-107) mmol/L Carbon Dioxide 24 (22-32) mmol/L BUN 24 H (7-17) mg/dL Creatinine 0.99 (0.52-1.04) mg/dL Estimated GFR 57 L (>60) mL/min BUN/Creatinine Ratio 24.2 H (6-22) Glucose 104 (80-110) mg/dL Calcium 10.0 (8.4-10.2) mg/dL Total Bilirubin 0.5 (0.2-1.3) mg/dL AST 31 (14-36) IU/L ALT 24 (<35) IU/L Alkaline Phosphatase 86 (38-126) U/L Total Creatine Kinase 86 67 (30-135) U/L Troponin I < 0.012 < 0.012 (0.01-0.034) ng/mL NT-Pro-B Natriuret Pep 75 (<450) pg/mL Total Protein 8.3 H (6.3-8.2) g/dL Albumin 4.3 (3.5-5.0) g/dL Globulin 4.0 (1.7-4.1) g/dL Albumin/Globulin Ratio 1.1 (1.0-2.8) Lipase 259 (23-300) U/L Imaging Data CT scan - head: Radiologist's Impression: PROCEDURE: CT HEAD/BRAIN WO CON INDICATIONS: 'DISORIENTATION' X 3 HRS TECHNIQUE: Noncontrast 4.5 mm thick angled axial sections acquired from the foramen magnum to the vertex, with coronal and sagittal reformats. For radiation dose reduction, the following was used: automated exposure control, adjustment of mA and/or kV according to patient size. COMPARISON: [facility], CT, HEAD WITHOUT CONTRAST, 03/26/2013, 13:06. FINDINGS: Image quality: Diagnostic. CSF spaces: Basal cisterns are patent. No extra-axial fluid collections. Ventricles are normal in size and shape. Brain: No midline shift. No intracranial masses or hemorrhage. Angel-white matter interface is normal. Periventricular white matter hypodensities consistent with chronic microvascular ischemic disease. Diffuse parenchymal volume loss. Skull and face: Calvarium and visualized facial bones are intact, without suspicious lesions. Sinuses: Visualized sinuses and mastoids are clear. IMPRESSION: No acute intracranial findings. Sequela of chronic microvascular ischemic disease. Chest x-ray: Radiologist's Impression: PROCEDURE: XR CHEST 1V INDICATIONS: chest pain TECHNIQUE: One view of the chest was acquired. COMPARISON: [facility], CR, XR CHEST 1V, 04/25/2022, 12:04. FINDINGS: Surgical changes and devices: None. Lungs and pleura: Lungs are clear. No pleural effusions or pneumothorax. Mediastinum: Mediastinal contours appear normal. Heart size is normal. Bones and chest wall: No suspicious bony lesions. Overlying soft tissues appear unremarkable. IMPRESSION: No acute cardiopulmonary abnormality is seen. CT scan - chest: Radiologist's Impression: PROCEDURE: CT ANGIO CHEST INDICATIONS: eval for thoracic aortic dissection TECHNIQUE: After the administration of intravenous contrast, 2.5 mm thick sections acquired from the lung apices to the posterior lung bases. Maximum intensity projection (MIP) oblique sagittal reformats were then acquired parallel to the aortic arch. For radiation dose reduction, the following was used: automated exposure control. COMPARISON: None. FINDINGS: Image quality: Excellent. Aorta: Aorta and great vessels are normal in size. No mural irregularity or contrast extravasation to suggest aortic injury. Scattered calcific and soft tissue atherosclerotic disease throughout the aorta. Calcification at the takeoff of the celiac artery causes greater than 50% stenosis. Lower Neck: No enlarged lymph nodes. Thyroid: No thyroid nodules which require sonographic follow up, per consensus guidelines. Axillae: No enlarged lymph nodes. Chest Wall: Unremarkable. Bones: Unremarkable. Lungs and Pleura: No pneumothorax or pleural effusions. No consolidation. Right subpleural pulmonary nodule measuring 6 mm. Heart: Heart size is normal. No pericardial effusion. Severe coronary artery calcifications. Thoracic Vessels: Pulmonary arteries demonstrate normal size. Mediastinum and Janelle: No enlarged lymph nodes. Esophagus: No wall thickening. No hiatal hernia. Upper Abdomen: Visualized upper abdomen solid organs and bowel loops appear normal. IMPRESSION: Start numbering follow-up. MDM Narrative Medical decision making narrative: Central chest pressure beginning at approximately 2:00 p.m.. 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 Patient has a blood pressure log at home that reports good blood pressure control until this afternoon. Chest pain not reproducible. EKG normal sinus rhythm without obvious ST T wave changes or elevations to suggest acute ischemia. Patient given aspirin, small dose of Ativan. Cardiac workup initiated. Dr foster: Received turned over. Review patient's history and physical and workup up to this point. Patient has had a nonischemic EKG, troponins are negative x2. Blood pressure has fluctuated somewhat. She recently had a change in her blood pressure medications due to a lack of adequate control and also potential cough caused by the lisinopril. I reviewed her home blood pressure medication chart. She averages 130s to 140 systolic. No changes in this needed today. We did discuss the lack of a definitive diagnosis. Discussed admission to the hospital for stress test versus doing this as an outpatient and she would like to do it as an outpatient. She was scheduled to get blood drawn tomorrow and follow-up in a couple days with her primary doctor. Will discharge patient home with return precautions. She expressed understanding and agreement with plan. Discharge Plan Departure Patient Disposition: Home Clinical Impression: Atypical chest pain Instructions: DI for Atypical Chest Pain Activity Restrictions/Additional Instructions: Continue to take all of your medications as directed. Continue to take your blood pressure at home like we discussed. Keep all of your scheduled medical appointments. Return to the emergency department for new or worsening symptoms. Prescriptions: No Action atorvastatin 20 mg tablet 20 mg PO BEDTIME 30 Days Qty: 30 2RF Hold Instructions: not taking since 2020 aspirin 325 mg tablet 325 mg PO BID irbesartan 150 mg tablet 150 mg PO DAILY Qty: 30 1RF benzonatate 100 mg capsule 100 mg PO TID PRN (Reason: cough) Qty: 30 2RF Referrals: Nayla Boland DO [Primary Care Provider] - Stand Alone Forms: Patient Portal/API
[2023-06-01 17:22] LABS: Add Manual Diff / Slide Review NO; Basophils Absolute Auto 100 /uL (0-100); Basophils Percent Auto 1.2 % (0-2); Eosinophils Absolute Auto 300 /uL (0-450); Eosinophils Percent Auto 2.5 % (2-4); Hematocrit 40.1 % (36-46); Hemoglobin 13.3 g/dL (12.0-16.0); Lymphocytes Absolute Auto 2800 /uL (1100-4500); Lymphocytes Percent Auto 23.9 % (25-40); Mean Corpuscular HGB Conc 33.3 % (30-36); Mean Corpuscular Hemoglobin 30.3 PG (26-34); Mean Corpuscular Volume 91.2 fL (80-100); Monocytes Absolute Auto 1000 /uL (0-900); Monocytes Percent Auto 8.4 % (3-14); Neutrophils Absolute Auto 7500 /uL (1500-7000); Platelet Count 255 X10^3/uL (150-400); Red Blood Cell Count 4.39 X10^6/uL (4.0-5.2); Red Cell Distribution Width 14.4 % (11.6-14.8); White Blood Cell Count 11.7 X10^3/uL (4.5-11.0)
[2023-06-01] MEDS: LORazepam 2 MG/ML INJ 1 MG IV (17:24)
[2023-06-01] MEDS: SODIUM CHLORIDE 0.9% 1,000 ML 150 ML IV (17:24)
[2023-06-01] MEDS: ASPIRIN 81 MG CHEW TAB 324 MG PO (17:24)
--- NOTE | 2023-06-01 17:25 | DI.CT.S_ITS ---
PROCEDURE: CT HEAD/BRAIN WO CON INDICATIONS: 'DISORIENTATION' X 3 HRS TECHNIQUE: Noncontrast 4.5 mm thick angled axial sections acquired from the foramen magnum to the vertex, with coronal and sagittal reformats. For radiation dose reduction, the following was used: automated exposure control, adjustment of mA and/or kV according to patient size. COMPARISON: [facility], CT, HEAD WITHOUT CONTRAST, 03/26/2013, 13:06. FINDINGS: Image quality: Diagnostic. CSF spaces: Basal cisterns are patent. No extra-axial fluid collections. Ventricles are normal in size and shape. Brain: No midline shift. No intracranial masses or hemorrhage. Angel-white matter interface is normal. Periventricular white matter hypodensities consistent with chronic microvascular ischemic disease. Diffuse parenchymal volume loss. Skull and face: Calvarium and visualized facial bones are intact, without suspicious lesions. Sinuses: Visualized sinuses and mastoids are clear. IMPRESSION: No acute intracranial findings. Sequela of chronic microvascular ischemic disease. Dictated by: Severino Benjamin M.D. on 06/01/2023 at 17:32 Approved by: Severino Benjamin M.D. on 06/01/2023 at 17:34
[2023-06-01 17:29] LABS: INR 0.9 (0.9-1.3); Prothrombin Time 10.7 SECONDS (9.4-12.5)
[2023-06-01 17:31] LABS: D Dimer 1648 ng/ml (<500)
[2023-06-01 17:32] LABS: PTT Partial Thromboplastin Tim 33 SECONDS (25.1-36.5)
[2023-06-01 17:35] LABS: Alanine Aminotransferase 24 IU/L (<35); Albumin 4.3 g/dL (3.5-5.0); Albumin Globulin Ratio 1.1 (1.0-2.8); Alkaline Phosphatase 86 U/L (38-126); Aspartate Aminotransferase 31 IU/L (14-36); BUN Creatinine Ratio 24.2 (6-22); Bilirubin Total 0.5 mg/dL (0.2-1.3); Blood Urea Nitrogen 24 mg/dL (7-17); Carbon Dioxide 24 mmol/L (22-32); Chloride 108 mmol/L (98-107); Creatine Kinase 86 U/L (30-135); Estimated Glomerular Filt Rate 57 mL/min (>60); Glucose 104 mg/dL (80-110); HEMOLYSIS 41 (0-50); Lipase 259 U/L (23-300); Potassium 4.5 mmol/L (3.4-5.1); Sodium 140 mmol/L (137-145); Total Protein 8.3 g/dL (6.3-8.2)
[2023-06-01 17:45] LABS: NT-proBNP (BNP-Adult 18+) 75 pg/mL (<450); Troponin I < 0.012 ng/mL (0.01-0.034)
--- NOTE | 2023-06-01 17:56 | DI.CT.S_ITS ---
PROCEDURE: CT ANGIO CHEST INDICATIONS: eval for thoracic aortic dissection TECHNIQUE: After the administration of intravenous contrast, 2.5 mm thick sections acquired from the lung apices to the posterior lung bases. Maximum intensity projection (MIP) oblique sagittal reformats were then acquired parallel to the aortic arch. For radiation dose reduction, the following was used: automated exposure control. COMPARISON: None. FINDINGS: Image quality: Excellent. Aorta: Aorta and great vessels are normal in size. No mural irregularity or contrast extravasation to suggest aortic injury. Scattered calcific and soft tissue atherosclerotic disease throughout the aorta. Calcification at the takeoff of the celiac artery causes greater than 50% stenosis. Lower Neck: No enlarged lymph nodes. Thyroid: No thyroid nodules which require sonographic follow up, per consensus guidelines. Axillae: No enlarged lymph nodes. Chest Wall: Unremarkable. Bones: Unremarkable. Lungs and Pleura: No pneumothorax or pleural effusions. No consolidation. Right subpleural pulmonary nodule measuring 6 mm. Heart: Heart size is normal. No pericardial effusion. Severe coronary artery calcifications. Thoracic Vessels: Pulmonary arteries demonstrate normal size. Mediastinum and Jnaelle: No enlarged lymph nodes. Esophagus: No wall thickening. No hiatal hernia. Upper Abdomen: Visualized upper abdomen solid organs and bowel loops appear normal. IMPRESSION: Start numbering follow-up. Dictated by: Severino Benjamin M.D. on 06/01/2023 at 17:50 Approved by: Severino Benjamin M.D. on 06/01/2023 at 17:57
[2023-06-01 19:30] LABS: Creatine Kinase 67 U/L (30-135)
[2023-06-01 19:43] LABS: Troponin I < 0.012 ng/mL (0.01-0.034)
--- NOTE | 2023-06-01 19:49 | PC.NURSE ---
Dr. Foster at bedside
== END 2023-06-01 20:19 | disposition home or self-care (01) ==
PROVIDERS: Emergency Medicine; Emergency Provider Emergency Medicine; PCP Family Medicine
DX: R07.89 Other chest pain (principal); I10 Essential (primary) hypertension; R41.0 Disorientation, unspecified
CPT/HCPCS: 36415; 70450; 71045; 71275; 80053; 82550; 83690; 83880; 84484; 85025; 85379; 85610; 85730; 93005; 96361; 96374; 99284; 99285; J2060; Q9967

== ENCOUNTER → 2023-06-02 08:38 | Outpatient (CLI) | payer MEDICARE, SELFPAY ==
[2019-09-30 20:06] VITALS: BMI 24.5
[2023-06-02 11:00] LABS: BUN Creatinine Ratio 26.1 (6-22); Blood Urea Nitrogen 24 mg/dL (7-17); Calcium 9.5 mg/dL (8.4-10.2); Carbon Dioxide 25 mmol/L (22-32); Chloride 110 mmol/L (98-107); Cholesterol 246 mg/dL (140-199); Estimated Glomerular Filt Rate > 60 mL/min (>60); Glucose 87 mg/dL (80-110); HDL Cholesterol 70 mg/dL (40-60); HEMOLYSIS < 15 (0-50); LDL Cholesterol Calculated 164 mg/dL (<100); Potassium 4.9 mmol/L (3.4-5.1); Sodium 140 mmol/L (137-145); Triglycerides 58 mg/dL (35-150)
== END ==
PROVIDERS: PCP Family Medicine; Referring Provider Family Medicine; Visit Provider Family Medicine
DX: E78.5 Hyperlipidemia, unspecified (principal); I10 Essential (primary) hypertension
CPT/HCPCS: 36415; 80048; 80061; 86140

== ENCOUNTER → 2023-06-10 13:19 | Outpatient (CLI) | payer MEDICARE, SELFPAY ==
[2019-09-30 20:06] VITALS: BMI 24.5
[2023-06-10 15:43] LABS: Creatinine Urine Random 30.6 mg/dL
[2023-06-10 15:49] LABS: Microalbumin Urine Random < 0.6 mg/dL (0-1.6)
== END ==
PROVIDERS: PCP Family Medicine; Referring Provider Family Medicine; Visit Provider Family Medicine
DX: I10 Essential (primary) hypertension (principal); E78.5 Hyperlipidemia, unspecified
CPT/HCPCS: 82043; 82570

== ENCOUNTER → 2024-07-15 07:40 | Outpatient (CLI) | payer MEDICARE, SELFPAY ==
[2019-09-30 20:06] VITALS: BMI 24.5
[2024-07-15 07:58] LABS: Add Manual Diff / Slide Review NO; Basophils Absolute Auto 100 /uL (0-100); Basophils Percent Auto 1.2 % (0-2); Eosinophils Absolute Auto 400 /uL (0-450); Eosinophils Percent Auto 5.6 % (2-4); Hematocrit 39.6 % (36-46); Hemoglobin 13.2 g/dL (12.0-16.0); Lymphocytes Absolute Auto 1700 /uL (1100-4500); Lymphocytes Percent Auto 26.6 % (25-40); Mean Corpuscular HGB Conc 33.4 % (30-36); Mean Corpuscular Hemoglobin 30.4 PG (26-34); Mean Corpuscular Volume 91.1 fL (80-100); Monocytes Absolute Auto 700 /uL (0-900); Monocytes Percent Auto 10.5 % (3-14); Neutrophils Absolute Auto 3600 /uL (1500-7000); Neutrophils Percent Auto 56.1 % (50-75); Platelet Count 222 X10^3/uL (150-400); Red Blood Cell Count 4.35 X10^6/uL (4.0-5.2); Red Cell Distribution Width 14.3 % (11.6-14.8); White Blood Cell Count 6.5 X10^3/uL (4.5-11.0)
[2024-07-15 10:54] LABS: Alanine Aminotransferase 22 IU/L (<35); Albumin 4.4 g/dL (3.5-5.0); Albumin Globulin Ratio 1.3 (1.0-2.8); Alkaline Phosphatase 71 U/L (38-126); Aspartate Aminotransferase 53 IU/L (14-36); BUN Creatinine Ratio 17.8 (6-22); Bilirubin Total 0.6 mg/dL (0.2-1.3); Blood Urea Nitrogen 19 mg/dL (7-17); Calcium 9.9 mg/dL (8.4-10.2); Carbon Dioxide 23 mmol/L (22-32); Chloride 108 mmol/L (98-107); Cholesterol 275 mg/dL (140-199); Estimated Glomerular Filt Rate 52 mL/min (>60); Globulin 3.5 g/dL (1.7-4.1); Glucose 100 mg/dL (70-99); HDL Cholesterol 79 mg/dL (40-60); HEMOLYSIS 38 (0-50); LDL Cholesterol Calculated 179 mg/dL (<100); Potassium 4.9 mmol/L (3.4-5.1); Sodium 139 mmol/L (137-145); Total Protein 7.9 g/dL (6.3-8.2); Triglycerides 84 mg/dL (35-150)
[2024-07-16 04:11] LABS: CRP, High Sensitivity 1.89 mg/L (0.00-3.00)
== END ==
PROVIDERS: PCP Family Medicine; Referring Provider Family Medicine; Visit Provider Family Medicine
DX: I10 Essential (primary) hypertension (principal); E78.5 Hyperlipidemia, unspecified
CPT/HCPCS: 36415; 80053; 80061; 85025; 86140

== ENCOUNTER → 2025-01-24 10:30 | Outpatient (CLI) | payer MEDICARE, SELFPAY ==
[2019-09-30 20:06] VITALS: BMI 24.5
[2025-01-24 12:25] LABS: Alanine Aminotransferase 20 IU/L (<35); Albumin 4.3 g/dL (3.5-5.0); Albumin Globulin Ratio 1.3 (1.0-2.8); Alkaline Phosphatase 74 U/L (38-126); Blood Urea Nitrogen 24 mg/dL (7-17); Calcium 10.2 mg/dL (8.4-10.2); Carbon Dioxide 24 mmol/L (22-32); Chloride 107 mmol/L (98-107); Estimated Glomerular Filt Rate 54 mL/min (>60); Globulin 3.4 g/dL (1.7-4.1); Glucose 105 mg/dL (70-99); HEMOLYSIS 18 (0-50); Potassium 4.5 mmol/L (3.4-5.1); Sodium 141 mmol/L (137-145); Total Protein 7.7 g/dL (6.3-8.2)
== END ==
PROVIDERS: PCP Family Medicine; Referring Provider Family Medicine; Visit Provider Family Medicine
DX: R94.4 Abnormal results of kidney function studies (principal)
CPT/HCPCS: 36415; 80053